=== PATIENT | male | born 1955 | race Caucasian/White ===

== ENCOUNTER → 2018-09-13 10:35 | Outpatient (CLI) | payer MEDICARE, OTHER, SELFPAY ==
--- NOTE | 2018-09-13 | DI.RAD.S_ITS ---
PROCEDURE: XR KNEE RT 3V INDICATIONS: RIGHT KNEE PAIN TECHNIQUE: 3 views of the knee were acquired. COMPARISON: None. FINDINGS: Bones: No fractures or dislocations. No suspicious bony lesions. There is a severe medial compartment degenerative osteoarthritic change with essentially [id number] articulation. Moderate degeneration is seen at the lateral compartment where a probable intra-articular loose body is superimposed. Moderately severe patellofemoral joint osteoarthritis also is seen. Soft tissues: No joint effusion. No suspicious soft tissue calcifications. IMPRESSION: Moderate to severe degenerative knee joint osteoarthritis with a presumed intra-articular loose body superimposed on the lateral compartment single view, and [id number] articulation at the medial compartment is present. Dictated by: Dima Diaz M.D. on 09/13/2018 at 12:40 Approved by: Dima Diaz M.D. on 09/13/2018 at 12:41
== END ==
PROVIDERS: Family Provider Family Medicine; PCP Family Medicine; Visit Provider Family Medicine
DX: M25.561 Pain in right knee (principal); M17.11 Unilateral primary osteoarthritis, right knee
CPT/HCPCS: 73562

== ENCOUNTER → 2018-10-18 08:22 | Outpatient (CLI) | payer MEDICARE, OTHER, SELFPAY ==
--- NOTE | 2018-10-18 | DI.US.S_ITS ---
PROCEDURE: US ABD AORTA ANEURYSM SCREEN INDICATIONS: AAA SCREENING TECHNIQUE: Real time scanning was performed of the aorta and iliac arteries, with image documentation. COMPARISON: [facility], CT, ABDOMEN/PELVIS WITH CONTRAST, 04/16/2016, 1:22. [facility], CT, ABDOMEN/PELVIS WITH CONTRAST, 09/05/2012, 11:20. FINDINGS: Aorta: Proximal aorta is not seen, secondary to overlying bowel gas. Mid-aorta measures 1.8 cm. Distal aortic diameter is 1.7 cm. Iliac arteries: Right common iliac artery measures 1.2 cm. Left common iliac artery measures 1 cm. IMPRESSION: Negative for aneurysm. Dictated by: Tre Taylor M.D. on 10/18/2018 at 8:43 Approved by: Tre Taylor M.D. on 10/18/2018 at 8:44
== END ==
PROVIDERS: PCP Family Medicine; Visit Provider Family Medicine
DX: Z13.6 Encounter for screening for cardiovascular disorders (principal)
CPT/HCPCS: 76706

== ENCOUNTER → 2018-11-27 07:57 | Outpatient (CLI) | payer MEDICARE, OTHER, SELFPAY ==
--- NOTE | 2018-11-27 | DI.MRI.S_ITS ---
PROCEDURE: MR KNEE RT WO CON INDICATIONS: RT KNEE PAIN TECHNIQUE: Noncontrast sagittal PD fast spin echo and T2 fast spin echo with fat saturation, sagittal 3-D FLASH with fat saturation; coronal T1 spin echo and PD fast spin echo with fat saturation, and axial PD fast spin echo with fat saturation through the knee. COMPARISON: None. FINDINGS: Image quality: Excellent. Menisci: Lateral meniscus appears intact. Medial meniscal tear involving the posterior horn and body, as well as the posterior root. There is complete extrusion of the medial meniscal body. Cruciate ligaments: The anterior and posterior cruciate ligaments appear intact. Medial structures: The medial collateral ligament appears intact. Mild semimembranosus insertional tendinopathy. Visualized portions of the pes anserinus tendons appear normal. No abnormal bursal fluid. Lateral structures: Age-indeterminate mild proximal lateral collateral ligament sprain. The long and short heads of the biceps femoris tendon appear intact. The popliteus tendon appears thickened with intrasubstance signal change also age-indeterminate. Iliotibial band appears normal. Anterior structures: Prepatellar and superficial infrapatellar subcutaneous edema/fluid. The quadriceps and patellar tendons appear intact although there is proximal patellar tendinopathy, likely chronic. Patellar alignment is normal. No femoral trochlear dysplasia or ventral trochlear prominence. No edema in the infrapatellar fat pad. Bones and cartilage: No focal marrow contusion or discrete low signal fracture line. Within the medial compartment, full thickness loss of the femoral and tibial articular cartilage, with subchondral marrow edema Within the lateral compartment, intrasubstance signal change of the central weightbearing tibial cartilage and diffuse surface fraying of the femoral and tibial articular cartilage without focal defect Within the patellofemoral compartment, diffuse partial thickness loss of the patellar and femoral trochlear articular cartilage. Joint space: Large joint effusion. No Washington's cyst. A ligamentous ganglion cyst just to the PCL. A low signal 5 mm presumed loose body seen in the anterior intercondylar notch. Heterogeneous signal intensity also in the region of the anterior intercondylar notch, which could be postsurgical or posttraumatic arthrofibrosis. IMPRESSION: Macerated, complex medial meniscal tear involving the posterior root, horn and body with complete extrusion. Severe degenerative joint disease, most pronounced in the medial compartment. Large joint effusion. Mild semimembranosus insertional tendinopathy. Age-indeterminate proximal patellar tendinopathy. Periligamentous ganglion cysts. Heterogeneous focal signal abnormality in the anterior intercondylar notch which could be postsurgical or posttraumatic arthrofibrosis. Adjacent 5 mm loose body. Dictated by: Jose Lennon M.D. on 11/27/2018 at 12:36 Approved by: Jose Lennon M.D. on 11/27/2018 at 12:45
== END ==
PROVIDERS: PCP Family Medicine; Visit Provider Family Medicine
DX: M25.561 Pain in right knee (principal); S83.231A Complex tear of medial meniscus, current injury, right knee, initial encounter; M17.11 Unilateral primary osteoarthritis, right knee; M25.461 Effusion, right knee; M67.461 Ganglion, right knee; M67.961 Unspecified disorder of synovium and tendon, right lower leg
CPT/HCPCS: 73721

== ENCOUNTER → 2018-12-26 09:12 | Outpatient (CLI) | payer MEDICARE, OTHER, SELFPAY ==
[2018-12-26 10:32] LABS: Add Manual Diff / Slide Review NO; Basophils Absolute Auto 0 /uL (0-100); Basophils Percent Auto 0.6 % (0-2); Eosinophils Absolute Auto 100 /uL (0-450); Eosinophils Percent Auto 2.5 % (2-4); Hematocrit 42.6 % (41-53); Hemoglobin 14.6 g/dL (13.5-17.5); Lymphocytes Absolute Auto 1100 /uL (1100-4500); Lymphocytes Percent Auto 20.9 % (25-40); Mean Corpuscular HGB Conc 34.2 % (30-36); Mean Corpuscular Hemoglobin 32.1 PG (26-34); Mean Corpuscular Volume 93.9 fL (80-100); Monocytes Absolute Auto 400 /uL (0-900); Monocytes Percent Auto 7.8 % (3-14); Neutrophils Absolute Auto 3700 /uL (1500-7000); Neutrophils Percent Auto 68.2 % (50-75); Platelet Count 207 X10^3/uL (150-400); Red Blood Cell Count 4.54 X10^6/uL (4.5-5.9); Red Cell Distribution Width 12.7 % (11.6-14.8); White Blood Cell Count 5.5 X10^3/uL (4.5-11.0)
[2018-12-26 10:38] LABS: Carbon Dioxide 29 mmol/L (22-32); Chloride 102 mmol/L (98-107); HEMOLYSIS < 15 (0-50); Potassium 4.9 mmol/L (3.4-5.1); Sodium 140 mmol/L (137-145)
== END ==
PROVIDERS: Family Provider Family Medicine; PCP Family Medicine; Visit Provider Orthopaedic Surgery
DX: Z01.812 Encounter for preprocedural laboratory examination (principal); Z01.818 Encounter for other preprocedural examination
CPT/HCPCS: 36415; 80051; 85025; 93005

== ENCOUNTER 2019-01-31 09:42 | Day surgery (SDC) | payer MEDICARE, OTHER, SELFPAY ==
[2019-01-17 09:36] VITALS: BMI 29.0
[2019-01-31] VITALS (15 sets, daily range): BP systolic 94–154; BP diastolic 51–88; PULSE 57–82; RESP 9–20; TEMP 36.1–37.1; O2SAT 94–99; BMI 28.6
--- NOTE | 2019-01-31 06:00 | DI.RAD.S_ITS ---
PROCEDURE: XR KNEE RT 1TO2V INDICATIONS: POST OPERATIVE RIGHT KNEE TECHNIQUE: 2 view(s) of the knee acquired. COMPARISON: [facility], CR, XR KNEE RT 3V, 09/13/2018, 10:46. [facility], MR, MR KNEE RT WO CON, 11/27/2018, 8:24. FINDINGS: Bones: Patient is status post knee joint arthroplasty. Hardware components are in expected positions. Visualized bony structures are intact. Soft tissues: Overlying postoperative changes are noted. IMPRESSION: Stable postoperative changes. Dictated by: Tiffany Willson M.D. on 01/31/2019 at 13:29 Approved by: Tiffany Willson M.D. on 01/31/2019 at 13:29
--- NOTE | 2019-01-31 09:59 | PM.PREOP ---
Pre-operative Note Interval Note History & Physical reviewed/Exam performed by Physician: Yes Changes to H&P: No
--- NOTE | 2019-01-31 10:00 | PM.OP.1 ---
Operative Date/Time/Diagnoses Date of procedure: 01/31/19 Time of procedure: 12:54 Pre-op diagnosis: Right knee osteoarthritis Post-op diagnosis: same Procedure & Clinicians Procedure: Right total knee arthroplasty Same procedure as scheduled: Yes Indications: The patient presents today for total knee arthroplasty after failure of conservative treatment. The nature of the procedure including the risks and benefits, alternatives, postoperative course and expected outcome were discussed and all questions answered. Consent was obtained. Operative site confirmed and marked. Surgeon: Jayesh Noel Aircraft Magneto Mechanic: Jame Ruelas Anesthesia Type: General, Spinal and Local Operative Notes Findings: Severe osteoarthritis with varus alignment. Closure Type: primary Specimen(s): none sent Prosthetic devices, grafts, tissues, transplants, or devices: Ch and Nephew Flex BCS: 7 femoral component, 6 tibial component, 9 mm BCS polyethylene tray and 38 x 9 mm round patella Applied: implant(s) Estimated Blood Loss (mL): 10 Blood products transfused: none Tourniquet time (min): 57 Procedure in detail: The patient was taken to the operative suite and placed under general and spinal anesthesia. The patient was given prophylactic antibiotics prior to surgery. The patient was also given tranexamic acid, 1 g, just prior to surgery for postoperative hemostasis. The lateral knee was prepped and the joint injected with 20 mL of 1% Lidocaine with epinephrine. The knee was then prepped and draped in usual sterile fashion. The leg was exsanguinated with an Esmarch dressing and the tourniquet raised to 250 torr. A 15 cm anterior incision was made. Next a medial trivector arthrotomy was made. The extensor mechanism was marked to ensure accurate repair. Initial exposing dissection was carried out medially and laterally. The knee was then extended and the patellar thickness was measured and a cut made removing approximately 9 mm of bone. The patella was then sized and drilled. Some excess lateral bone was excised and the patellofemoral ligament released. The knee was then flexed and the intramedullary femoral guide jw placed. The distal femoral cut was made in 6 ? of valgus at the + 0 position. The femoral size was measured and the appropriate cutting block was then placed and the anterior, posterior and chamfer cuts made. The extra medullary tibial alignment jw was then placed along the anatomic axis of the tibia approximating the normal slope. The guide was set to remove approximately 10 mm from the less affected lateral side. The proximal tibial cut was then made with an oscillating saw. All meniscus and bony debris was then removed. Flexion extension gaps were checked. The knee was still tight medially after routine soft tissue releases and osteophyte removal. Further medial release was obtained percutaneously with an 18 gauge needle on the MCL. This helped to correct the balance. The knee was still mildly tighter medially as opposed to laterally in extension. The soft tissues were then injected with a combination of 20 mL of half percent Marcaine with epinephrine and 20 mL of Exparel. The trial components were then placed. The knee went into full extension and flexion beyond 120?. There was good medial- lateral balance throughout motion with just slight increased lateral as opposed to medial laxity. Patellar tracking was excellent. The trial components were removed and the knee was cleansed with Pulsavac irrigation and dried. The final components were cemented in with high viscosity vacuum mixed bone cement with antibiotics. The knee was held in extension and the patellar clamp until the cement had adequately cured. The knee was irrigated and inspected for any further debris. The knee was then irrigated with dilute Betadine solution. The extensor mechanism was closed with 5 interrupted #1 Vicryl sutures in 90 degrees of flexion. The joint was then injected with a combination of 1 g of tranexamic acid and 20 mL of quarter percent Marcaine with epinephrine. The subcutaneous tissue was closed with 2-0 Vicryl. The skin was closed with sunday and surgical adhesive. An Aquacell dressing and Roby wrap were then applied. The patient tolerated the procedure well and was returned to recovery room in good condition. Post-operative Plan for aftercare: [facility] protocol for total knee arthroplasty.
[2019-01-31] MEDS: LACTATED RINGERS 1,000 ML 42 ML IV (10:10)
[2019-01-31] MEDS: PREGABALIN 75 MG CAPSULE PO (10:20)
[2019-01-31] MEDS: ACETAMINOPHEN 325 MG TABLET 975 MG PO ×3 (10:20→21:29)
[2019-01-31] MEDS: CELECOXIB 200 MG CAPSULE PO (10:20)
[2019-01-31] MEDS: CEFAZOLIN 2 GM/100 ML FROZ.PIGGY IV ×2 (11:15→18:34)
--- NOTE | 2019-01-31 11:53 | SUR.OPER ---
Supine on padded OR bed. Pillow under head, arms secured on padded armboards <90 degree abduction. Safety belt across torso. Non-operative leg secured with tape over blanket over lower leg. Operative leg secured in Barber positioner. Foam padded brace at thigh of operative leg.
[2019-01-31] MEDS: TRANEXAMIC ACID 1,000 MG VIAL 1000 MG IV (12:00)
[2019-01-31] MEDS: BUPIVACAINE 0.25% W/ EPI (PF) 20 ML, TRANEXAMIC ACID 1,000 MG, SODIUM CHLORIDE 0.9% 10 ML INJ (12:00)
[2019-01-31] MEDS: BUPIVACAINE 0.25% W/ EPI (PF) 40 ML, BUPIVACAINE LIPOSOME 266 MG, SODIUM CHLORIDE 0.9% ... INJ (12:01)
[2019-01-31] MEDS: SODIUM CHLORIDE IRRIG SOLUTION 250 ML, POVIDONE-IODINE SPONGE STICKS 1 APPLIC IRR (12:01)
--- NOTE | 2019-01-31 13:26 | SUR.PHASEI ---
REPORT CALLED TO LOLA CABRERA ON ACUTE CARE FLOOR. PT IN STABLE CONDITION, VSS. DRSG OBSERVED TO BE C/D/I. PT ALERT AND TALKING TO RN. PT DENIES ANY PAIN/DISCOMFORT OR NAUSEA AT THIS TIME.
--- NOTE | 2019-01-31 13:45 | SUR.PHASEI ---
PT TRANSFERRED TO ACUTE CARE FLOOR IN STABLE CONDITION. PT ALERT AND TALKING TO RN DURING TRANSPORT. BEDSIDE REPORT GIVEN TO LOLA CABRERA UPON ARRIVAL. PT FAMILY AT BEDSIDE UPON ARRIVAL. TRANSFERRED CARE OF PT TO LOLA CABRERA AT THAT TIME.
[2019-01-31] MEDS: OXYCODONE IR 5 MG TABLET 10 MG PO ×3 (14:41→21:28)
[2019-01-31] MEDS: GABAPENTIN 600 MG TABLET PO ×2 (14:42→21:29)
[2019-01-31] MEDS: LACTATED RINGERS 1,000 ML 125 ML IV ×2 (14:42→22:56)
[2019-01-31] MEDS: HYDROMORPHONE 0.5 MG INJ IV (16:24)
--- NOTE | 2019-01-31 19:18 | PC.NURSE ---
PATIENT UP TO BSC WITH ASSIST,SMALL RESULTS,PRUNE JUICE GIVEN
[2019-01-31] MEDS: AMLODIPINE 5 MG TABLET PO (21:29)
[2019-01-31] MEDS: ATORVASTATIN 20 MG TABLET 40 MG PO (21:29)
[2019-01-31] MEDS: NAPROXEN 250 MG TABLET 500 MG PO (21:29)
[2019-01-31] MEDS: ASPIRIN EC 81 MG TABLET PO (21:29)
--- NOTE | 2019-02-01 00:17 | PC.NURSE ---
Set Making Machine Operator Note: 0000: Awake, states he is having 6/10 pain in rt knee. Dilaudid 0.5mg given IV. IV in place in lt forearm, with LR infusing at 125cc/hr. Dressing to rt knee cdi, with eduardo wrap intact over dressing. SCDs on. Fresh ice to rt knee.
[2019-02-01] MEDS: OXYCODONE IR 5 MG TABLET 10 MG PO ×3 (01:12→08:32)
[2019-02-01] MEDS: CEFAZOLIN 2 GM/100 ML FROZ.PIGGY IV (03:10)
[2019-02-01 04:36] VITALS: BP 134/71; PULSE 58; RESP 18; TEMP 36.5; O2SAT 97
[2019-02-01 07:06] LABS: Hematocrit 38.4 % (41-53); Hemoglobin 13.3 g/dL (13.5-17.5)
[2019-02-01 08:00] VITALS: BP 121/65; PULSE 67; RESP 16; TEMP 36.9; O2SAT 98
[2019-02-01] MEDS: ACETAMINOPHEN 325 MG TABLET 975 MG PO (08:36)
[2019-02-01] MEDS: ASPIRIN EC 81 MG TABLET PO (08:36)
--- NOTE | 2019-02-01 09:03 | PM.DS.1 ---
History of Present Illness History of Present Illness Date Patient Seen: 02/01/19 Time Patient Seen: 09:03 Chief complaint: Total Knee Arthroplasty Narrative: Patient's pain is 3/10. No fever chills. No nausea vomiting. Patient wishes to go home today if safe to do so. Patient's is home and available to assist him. Discharge Providers Provider Date of admission: 01/31/19 09:42 Discharge Date: 02/01/19 Primary care physician: Isma Townsend MD Consults: 01/31/19 13:48 Consult to Discharge Planning Routine Comment: Consult to Physical Therapy Evaluate & Treat Comment: Physician Instructions: postop TKA protocol Consult to Respiratory Therapy Evaluate & Treat Comment: Physician Instructions: Evaluate and treat Discharge provider: Jame Ruelas PA-C Summary Hospital Course Discharge Diagnosis: Status post right total knee arthroplasty secondary to severe right knee osteoarthritis Hospital Course: Findings: Severe osteoarthritis with varus alignment. Closure Type: primary Specimen(s): none sent Prosthetic devices, grafts, tissues, transplants, or devices: Ch and Nephew Flex BCS: 7 femoral component, 6 tibial component, 9 mm BCS polyethylene tray and 38 x 9 mm round patella Applied: implant(s) Estimated Blood Loss (mL): 10 Blood products transfused: none Tourniquet time (min): 57 Patient admitted to the hospital for right total knee arthroplasty. Patient consented to the same. Patient taken to the operating room underwent right total knee arthroplasty. Patient back in his room recovering well as in stable condition. Status at Discharge Cognitive/behavioral status at discharge: at baseline, oriented Functional status at discharge: uses cane/walker Overall status at discharge: patient is progressing back to baseline Time Spent with Patient Time spent: Less than 30 minutes Exam Vital Signs (past 8 hours): - 02/01/19 04:36 Temperature 97.7 F Pulse Rate 58 L Respiratory Rate 18 Blood Pressure 134/71 Pulse Oximetry 97 Oxygen Delivery Method Room Air Oxygen Flow Rate 0 Narrative Exam Narrative: Pleasant 63-year-old male resting comfortably in bed in no apparent distress. Right knee dressing is clean, dry and intact. Motor functions intact distally. Sensation is intact distally. Right leg is warm and dry. Objective Labs Result Diagrams: 02/01/19 06:35 Labs: Laboratory Results - last 24 hr 02/01/19 06:35 Hgb 13.3 L Hct 38.4 L Discharge Plan Discharge Plan Patient Disposition: Home Discharge comment: DC after PT today Discharge Med Rec/Prescriptions Prescriptions: New oxycodone 5 mg tablet 5 mg PO Q3H PRN (Reason: pain) Qty: 40 RF: 0 Continued gabapentin 100 MG capsule 600 mg PO TID Qty: 0 RF: 0 atorvastatin 40 mg Tablet 40 mg PO BEDTIME RF: 0 amlodipine 5 mg Tablet 5 mg PO BEDTIME RF: 0 piroxicam 20 mg Capsule 20 mg PO BEDTIME RF: 0 duloxetine 20 mg Capsule,Delayed Release(Dr/Ec) 20 mg PO BEDTIME RF: 0 ferrous gluconate 324 mg (37.5 mg iron) Tablet 324 mg PO BID RF: 0 Discontinued hydrocodone-acetaminophen 5-325 mg Tablet 2 tab PO BID RF: 0 Follow up/Referrals: Jayesh Noel MD [Physician] - (1 wk) Isma Tonwsend MD [Primary Care Provider] - Provider Discharge Instructions Diet: Diet as Tolerated Activity: per swiftpath Cold/Heat Therapy: per swiftpath Other treatments: Aspirin 81 mg b.i.d.. Tylenol 500 mg every 4 hours. Oxycodone as needed for pain Skin/Wound/Dressing Care Report to your healthcare provider any signs of infection, such as:: chills, fever, night sweats, increased pain, unusual drainage and unusual redness Dressing: keep clean and dry Discharge Data Primary Care Provider: Isma Townsend Quality VTE Deep Vein Thrombosis/Pulmonary Embolism Present on Admission: No
--- NOTE | 2019-02-01 10:12 | CM.DANOTE ---
DCP: Case received, EMR reviewed and met with patient. Introduced self and role. Was able to obtain baseline information regarding health and living situation from patient. DCP template/assessment completed with information currently available. Patient is a 63 year old male who admitted yesterday morning to the care of the orthopedic team. PCP: Dr. Townsend. Payer: confirmed: Medicare/[facility]. Patient came to the hospital for a surgical procedure. He had a right total knee arthroplasty. Patient has had history of right knee osteoarthritis. Met with him in his room. Alert and oriented, was sitting up in bed. He is awaiting working with physical therapy. Patient is independent at home. He resides with his spouse, Donna, here in [place]. He stated that he has been dealing with knee problems for about 15 years. He stated, his biggest challenge is using stairs. P: Patient has discharge orders for home today, pending working with physical therapy. April Raya RN/Pulvi Mixer Operator
--- NOTE | 2019-02-01 11:55 | PT.IIE ---
Current Diagnoses Unilateral primary osteoarthritis, right knee (01/31/19) Surgery Performed Operation Date: 01/31/19 11:45 Actual Procedures p Total Knee Arthroplasty(Right) - Jayesh Noel MD Surgical History (Last Updated 01/17/19 @ 10:22 by Sapna Noland, RN) H/O vasectomy (Acute) Hx of abdominal surgery (Acute) Hx of tonsillectomy (Acute) Medical History (Last Updated 01/17/19 @ 10:22 by Sapna Noland RN) Cervical spinal stenosis (Acute) Depression (Acute) HLD (hyperlipidemia) (Acute) HTN (hypertension) (Acute) Osteoarthritis (Acute) SCC (squamous cell carcinoma) (Acute ~10/2018) Small bowel obstruction (Acute ~03/2016) Physical Therapy Inpatient Evaluation/Re-Eval M1 PT/OT-IP Prior Functional Status Start: 02/01/19 08:25 Freq: NEEDED Status: Discharge Protocol: Document 02/01/19 11:39 AW (Rec: 02/01/19 11:55 AW [id number]) Medical Review Prior Functional Status Medical History Reviewed Yes Diet/Fluid Consistency Regular Communication Pt with no communication deficits Mobility and Gait Indpendent to mod independent with all functional mobility prior to surgery. Pt admits to occasional use of SBQC Activities of Daily Living and IADL's Indpendent, including driving Social History Household Members spouse Living Arrangements House Number of Floors (Floors) One Floor Number of Stairs To Enter/Railing? 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 lives with his spouse who is available to assist at home M2 PT-IP Current Condition Start: 02/01/19 08:25 Freq: NEEDED Status: Discharge Protocol: Document 02/01/19 11:39 AW (Rec: 02/01/19 11:55 AW [id number]) Physical Therapy Current Condition Current Condition Evaluation Date 02/01/19 Treatment Diagnosis s/p R TKA Onset Date 01/31/19 Weight Bearing Status Weight Bearing Status Weight Bear as Tolerated M3 PT-IP Subjective Start: 02/01/19 08:25 Freq: NEEDED Status: Discharge Protocol: Document 02/01/19 11:39 AW (Rec: 02/01/19 11:55 AW [id number]) Subjective Physical Therapy Visit Type Type Initial Evaluation Visit Start Time 09:03 Visit Stop Time 09:34 Total Visit Minutes 31 Number of TICKET BROKER Visits 0 Physical Therapy Visit Comments Patient Comments Pt is happy to mobilize with PT Patient Goals Carlos hopes to return home with his 's assistance as soon as possible Therapy Pain Assessment Pain When Pain Assessed During Mobility Pain Present Pain Present Pain Reported Location Bilateral Neck Intensity 4 Scale Used Pain reported as 2/10 at rest, 4/10 with activity Pain Management Techniques Apply Cold,Timing of Activity with Medications M4 PT-IP Mobility and Gait Start: 02/01/19 08:25 Freq: NEEDED Status: Discharge Protocol: Document 02/01/19 11:39 AW (Rec: 02/01/19 11:55 AW [id number]) PT-Bed Mobility Assessment Rolling Type of Rolling Roll to Right Level of Assist Standby Assistance Supine to Sit Supine to Sit Standby Assistance Sit to Supine Sit to Supine Standby Assistance Scooting Scooting to Edge of Bed Standby Assistance PT-Transfer Assessment Sit to and From Stand Sit to and from Stand Standby Assistance Equipment Transfer Assistive Device Gait Belt,Front Wheeled Walker Orthotic/Prosthetic Devices or Brace: No Transfers Transfer Destination Bed,Chair,Toilet Transfer Technique Stand Step Pivot Transfer Ability Level of Assist Standby Assistance Comments Mobility Comments Pt required no more than SBA with all transfers Gait Assessment Gait Gait Assistance Required: Standby Assistance Distance (Feet) 80 Able to Maintain Weight Bearing Status Yes During Gait Assistive Devices Assistive Device Gait Belt,Front Wheeled Walker Orthotic/Prosthetic Devices or Brace: No Gait Deviations General Gait Pattern Antalgic,Decreased Stride Length,Flexed Trunk Factors Limiting Gait Function Factors Limiting Gait Function Decreased Strength,Pain Comments Gait Comments Pt ambulated 80 feet using FWW SBA with reported increase of pain from 2/10 to 4/10, but pt feels the pain is manageable PT-Balance Assessment Sitting Balance and Reactions Static Sitting Balance Ability Normal Dynamic Sitting Balance Ability Normal Standing Balance and Reactions Static Standing Balance Ability Good Dynamic Standing Balance Ability Good M5 PT-IP Objective Assessments Start: 02/01/19 08:25 Freq: NEEDED Status: Discharge Protocol: Document 02/01/19 11:39 AW (Rec: 02/01/19 11:55 AW [id number]) Orientation Orientation/Cognition Level of Alertness Alert Orientation Name,Birthday,Month,Place, Situation Language Function Ability No Deficits Noted Safety Awareness Understands Safety Issues Memory Description No Deficits Noted Gross Range of Motion Upper Extremity ROM Assessment Within Functional Limits Lower Extremity ROM Assessment Right Impaired Strength Upper Extremity Strength Assessment Within Functional Limits Lower Extremity Strength Assessment Right Impaired Coordination Assessment Gross Coordination Gross Coordination WNL Sensation Assessment Sensation Gross Sensation Right LE Impaired Light Touch Impaired Comments Sensation Comments Light touch sensation dull in anterior and posterior compartments of distal RLE. No impairment noted in right proximal leg or right foot. Muscle Tone Muscle Tone WNL Yes M6 PT-IP Treatment Start: 02/01/19 08:25 Freq: NEEDED Status: Discharge Protocol: Document 02/01/19 11:39 AW (Rec: 02/01/19 11:55 AW [id number]) Physical Therapy Treatment Exercises Exercises Ankle Pumps,Quad Sets,Passive Knee Extension Hang Education Education Provided Precautions,Weight Bearing Status,Post-Op Packet,Safety M7 PT-IP Assessment and Plan Start: 02/01/19 08:25 Freq: NEEDED Status: Discharge Protocol: Document 02/01/19 11:39 AW (Rec: 02/01/19 11:55 AW [id number]) PT Summary Assessment and Plan Potential Rehabilitation Potential Excellent Status of Condition at Evaluation Evolving Summary Impairments Pain,ROM,Strength,Gait, Activity Tolerance Assessment Summary Carlos is a 63 yo man seen for PT eval on POD1 following R TKA. PLOF: Pt was independent with all functional mobility, only occasionally requiring use of quad cane for longer distances. Indpendent with all ADL/IADL's including driving. CLOF: Pt required no more than SBA for all bed mobility, transfers, and gait with FWW. PT reviewed plan of care, post-op exercises, weightbearing status, and importance of avoiding prolonged periods of knee in flexion. Advised pt to keep knee flat as much as possible in order to avoid flexion contracture. PT recommendation is for discharge to home with spouse assist as needed and outpatient PT. Goals Bed Mobility Goal Independent Transfer Goal Independent Gait Goal Independent Gait Distance 200 feet Frequency of Treatment Frequency Of Treatment Twice a Day Treatment Plan Physical Therapy Treatment Plan Bed Mobility Training,Transfer Training,Gait Training, Therapeutic Exercise,Balance Retraining,Post Op Education, Discharge Planning,Hot or Cold Pack,Neuromuscular Re-ed, Coordination Retraining,Manual Therapy Recommendations To Nursing Amount of Assist Needed Standby Assistance Discharge Recommendations PT Discharge Recommendations Home with Assistance, Outpatient PT
== END 2019-02-01 11:24 | disposition home or self-care (01) ==
LOC: AC 02-01 09:03 → OR 02-01 15:15
PROVIDERS: PCP Family Medicine; Visit Provider Orthopaedic Surgery
PROC: 0SRC0JZ Replacement of Right Knee Joint with Synthetic Substitute, Open Approach (ICD-10-PCS; CPT 27447; principal; 2019-01-31 11:45)
DX: M17.11 Unilateral primary osteoarthritis, right knee (principal)
CPT/HCPCS: 27447; 36415; 73560; 85014; 85018; 94762; 97110; 97161; C1776; C9290; J0690; J1100; J1170; J2250; J2405; J2704; J3010

== ENCOUNTER → 2020-05-12 11:20 | Outpatient (CLI) | payer MEDICARE, OTHER, SELFPAY ==
[2019-01-31 13:53] VITALS: BMI 28.6
[2020-05-12 12:16] LABS: COVID19 -Nasal RAPID Negative (Negative)
== END ==
PROVIDERS: PCP Family Medicine; Visit Provider Specialist
DX: Z01.812 Encounter for preprocedural laboratory examination (principal); Z20.828 Contact with and (suspected) exposure to other viral communicable diseases
CPT/HCPCS: 87635; C9803

== ENCOUNTER 2020-05-13 08:45 | Day surgery (SDC) | payer MEDICARE, OTHER, SELFPAY ==
[2019-01-31 13:53] VITALS: BMI 28.6
--- NOTE | 2020-05-13 | PATH_ITS ---
[facility] Accession Number: [id number] . 01 Material submitted: . PART A: esophagus, E-G Junction - BX NEAR ULCER AT GE JUNCTION PART B: body - POLYP AT 45CM . 02 Diagnosis: A. GE Junction, Near Ulcer, Biopsy: Columnar mucosa with no diagnostic abnormality. Negative for intestinal metaplasia. Negative for dysplasia and malignancy. . B. Colon, Polyp at 45 cm, Biopsy: Tubular adenoma. MRV 05/19/2020 1435 Local . 02 Electronically signed: . Tika Hedrick MD, Pathologist NPI- [id number] . 01 Gross description: . Part A: BX NEAR ULCER AT GE JUNCTION: Received in formalin are 2 fragment(s) of syed, soft tissue measuring 0.3 x 0.2 x 0.1 cm to 0.1 x 0.1 x 0.1 cm submitted entirely in 1 cassette(s) Part B: POLYP AT 45CM: Received in formalin are 2 fragment(s) of syed, soft tissue measuring 0.4 x 0.3 x 0.1 cm to 0.3 x 0.2 x 0.2 cm submitted entirely in 1 cassette(s) /QBJ 05/14/2020 0814 Local . 02 Microscopic: . An alcian blue stain was performed to evaluate for intestinal metaplasia and is negative. The control stain showed appropriate reactivity. . 02 Pathologist provided ICD-10: D50.9, D12.6 . 02 CPT . 193863, 754705, [id number] Performed at: 01 [facility] [address] [place] [address] [address] [facility], [place], [place] [id number] MD Jayesh Falk MD Phone: [phone] Performed at: 02 [facility] [address] [place] [id number] MD Tika Hedrick MD Phone: [phone]
[2020-05-13 09:13] VITALS: BP 129/80; PULSE 80; RESP 16; TEMP 36.1; O2SAT 95; BMI 29.5
[2020-05-13] MEDS: LACTATED RINGERS 1,000 ML 200 ML IV (09:44)
--- NOTE | 2020-05-13 10:07 | PM.PREOP ---
Pre-operative Note COVID-19 COVID-19 status: Negative Result date/Date tested (Pos, Neg/Pending): 05/12/20 Interval Note History & Physical reviewed/Exam performed by Physician: Yes Changes to H&P: No ASA Class (for procedural sedation): II
[2020-05-13] MEDS: LIDOCAINE 4% SOLN 50 ML 20 ML TOP (10:31)
[2020-05-13] MEDS: fentaNYL 250 MCG/5 ML INJ IV (10:57)
[2020-05-13] MEDS: MIDAZOLAM 5 MG/5 ML VIAL IV (10:57)
--- NOTE | 2020-05-13 11:20 | P.OP.ENDO_ITS ---
Operative Date/Time/Diagnoses Date of procedure: 05/13/20 Time of procedure: 11:20 Pre-op diagnosis: Iron deficiency anemia Post-op diagnosis: same (Ulcer at the GE junction possible source of anemia. Small colon polyps and diverticulosis(not likely sources of anemia)) Procedure & Clinicians Study performed: EGD with cold biopsy. Colonoscopy with cold biopsy. Same procedure as scheduled: Yes Indications: Determine cause of anemia if possible. Surgeon: Chiki Turner Procedure Notes SCOAP/Timeout: Performed Procedure in detail: The patient had topical anesthetic applied to oropharynx. She was placed in left lateral decubitus position and underwent IV sedation directed by the surgeon consisting of fentanyl and Versed. A bite block was inserted and the scope was advanced through it into the esophagus. The eso phagus was unremarkable. GE junction was noted at 37 cm from the incisors.. The stomach insufflated well. There were no lesions seen in the body, antrum or at the incisura. The pyloric channel was widely patent. The duodenum was unremarkable to the 4th part. The scope was brought back into the stomach and retroflexed. The proximal stomach was remarkable for the appearance of a possible prior Joce which was no longer tight and a small ulcer at the GE junction not seen from above. Biopsies were taken adjacent to the small ulcer.. The scope was straightened and brought out through the esophagus again. No other lesions were seen. The scope was removed and the patient tolerated the procedure well. The patient was repositioned and underwent additional IV sedation directed by the surgeon consisting of fentanyl and Versed. Digital exam was remarkable for decreased sphincter tone. The scope was inserted and advanced through the rectum into the sigmoid, descending, transverse, and ascending colon. Occasional diverticulosis was noted in the sigmoid.. The cecum was reached identified by the ileocecal valve and the appendiceal opening. The ileocecal valve was successfully cannulated. The terminal ileum was normal in appearance. The scope was gradually brought out. At 45 cm a small Polyp was found and removed. The scope ultimately was retroflexed in the rectum. The appearance was notable for very small hemorrhoids that had no ulceration.. The scope was removed and the patient tolerated the procedure well. The prep was very good. Scope withdrawal time: 9 minutes(11 total) Sedation minutes: 32 Findings: diverticulosis (Sigmoid.), internal hemorrhoids (Small non ulcerated), polyp (Small polyp at 45 cm from the anal verge.) and other findings (Ulcer GE junction.) Specimen(s): other (GE junction biopsy near ulcer. Colonic Polyp biopsy.) Complications: none Post-procedure Recommendations: Start medication(s) (Omeprazole) and Continue medication(s) (Iron) Plan for aftercare: Repeat EGD in 3 months to confirm healing. Follow up: months (Three) Disposition: PACU
[2020-05-13 11:23] VITALS: BP 122/73; PULSE 72; RESP 14; TEMP 36.5; O2SAT 96
[2020-05-13 11:28] VITALS: BP 112/78; PULSE 76; RESP 14; O2SAT 96
[2020-05-13 11:45] VITALS: BP 117/72; PULSE 70; RESP 14; TEMP 36.7; O2SAT 97
[2020-05-13 12:00] VITALS: BP 113/75; PULSE 60; RESP 17; TEMP 36.1; O2SAT 95
== END 2020-05-13 12:15 | disposition home or self-care (01) ==
PROVIDERS: PCP Family Medicine; Referring Provider Family Medicine; Visit Provider Specialist
PROC: 0DJ08ZZ Inspection of Upper Intestinal Tract, Via Natural or Artificial Opening Endoscopic (ICD-10-PCS; CPT 43235; principal; 2020-05-13 10:00)
PROC: 0DJD8ZZ Inspection of Lower Intestinal Tract, Via Natural or Artificial Opening Endoscopic (ICD-10-PCS; CPT 45378; 2020-05-13 10:00)
DX: K92.1 Melena (principal); D50.9 Iron deficiency anemia, unspecified; I10 Essential (primary) hypertension; E78.5 Hyperlipidemia, unspecified; K57.30 Diverticulosis of large intestine without perforation or abscess without bleeding; K22.10 Ulcer of esophagus without bleeding; K64.8 Other hemorrhoids; D12.6 Benign neoplasm of colon, unspecified
CPT/HCPCS: 45380; 43239; 99152; 99153; J2250; J3010

== ENCOUNTER 2020-07-07 10:53 | Emergency (ER) | payer MEDICARE, OTHER, SELFPAY ==
[2019-01-31 13:53] VITALS: BMI 28.6
[2020-07-07 11:04] VITALS: BP 130/73; PULSE 69; RESP 14; TEMP 36.5; O2SAT 98
--- NOTE | 2020-07-07 11:25 | ED.GENADULT ---
HPI - General Adult General Chief complaint: Back Pain/Injury Stated complaint: severe lower back pain/dizzy x2 weeks Time Seen by Provider: 07/07/20 10:58 Source: patient Mode of arrival: Wheelchair Limitations: no limitations History of Present Illness HPI narrative: Patient is a 64-year-old male here for evaluation of lower back pain radiating down his left leg to the front of his left leg. He has had lower back pain for the past several weeks but worsened over the past 24 hours. He states that sitting he is somewhat pain controlled however when he changes positions specially with walking hurts. No fevers. No change in any urinary status. No diarrhea. With his chiropractor today who told him to come to the emergency department for an MRI. Related Data Home Medications Medication Instructions Recorded Confirmed gabapentin 600 mg PO TID #0 04/16/16 05/13/20 amlodipine 5 mg PO BEDTIME 01/17/19 05/13/20 atorvastatin 40 mg PO BEDTIME 01/17/19 05/13/20 duloxetine 20 mg PO BEDTIME 01/17/19 05/13/20 ferrous gluconate 324 mg PO BID 01/17/19 05/13/20 piroxicam 20 mg PO BEDTIME 01/17/19 05/13/20 hydrocodone-acetaminophen 1 - 2 tab PO Q6H PRN 05/13/20 05/13/20 methocarbamol 500 - 1,000 mg PO QID PRN 05/13/20 05/13/20 Previous Rx's Medication Instructions Recorded omeprazole 20 mg PO DAILY #30 cap 05/13/20 prednisone 20 mg PO DAILY 3 Days #3 tab 07/07/20 Allergies Allergy/AdvReac Type Severity Reaction Status Date / Time morphine AdvReac Severe Cramping Verified 07/07/20 11:07 Review of Systems Constitutional Constitutional: Denies fever(s) and Denies headache(s) ENT Ears, Nose, Mouth, and Throat: Denies headache(s) Cardiovascular Cardiovascular: Denies chest pain and Denies dyspnea Respiratory Respiratory: Denies dyspnea Gastrointestinal Gastrointestinal: Denies abdominal pain, Denies change in bowel habits, Denies nausea and Denies vomiting Genitourinary Genitourinary: Denies urinary incontinence and Denies urinary urgency Genitourinary: Denies urinary incontinence and Denies urinary urgency Musculoskeletal Musculoskeletal: Denies arthralgias, Reports back pain and Denies myalgias Integumentary/Breasts Skin/Breast: Denies rash Neurologic Neurologic: Denies behavioral changes, Denies headache(s) and Reports paresthesias (Left anterior thigh) Psychiatric Psychiatric: Denies behavioral changes Hematologic/Lymphatic On Anticoagulants: No Allergic/Immunologic Allergic/Immunologic: Denies urticaria Patient History Medical History Cervical spinal stenosis Depression HLD (hyperlipidemia) HTN (hypertension) Osteoarthritis SCC (squamous cell carcinoma) (~10/2018) Small bowel obstruction (~03/2016) Surgical History H/O vasectomy Hx of abdominal surgery Hx of tonsillectomy Social History marital status: household members: spouse occupational status: previously employed Smoking Status: Former smoker alcohol intake: current substance use type: does not use Smoking Status: Former smoker alcohol intake frequency: a few times a week Substance Use Type: does not use Exam Initial Vital Signs Initial Vital Signs: Vital Signs Temperature 97.7 F 07/07/20 11:04 Pulse Rate 69 07/07/20 11:04 Respiratory Rate 14 07/07/20 11:04 Blood Pressure 130/73 07/07/20 11:04 Pulse Oximetry 98 07/07/20 11:04 Const General: cooperative Limitations: mental status not altered HENMT Head: normal to inspection and normocephalic Resp Effort & Inspection: normal respiratory effort Cardio Rate: regular rate Back/Spine/Pelvis Thoracic/Lumbar Spine: paraspinal tenderness and No lumbar spinal tenderness Neuro Other: Tingling/numbness left anterior thigh Extrem General: capillary refill normal Psych Appearance: well kempt Course Orders Ordered: Discontinued Medications Ketorolac Tromethamine (Ketorolac 60 Mg/2 Ml Vial) 30 mg IM NOW ONE Stop: 07/07/20 11:26 Last Admin: 07/07/20 11:45 Dose: 30 mg Documented by: FABIAN Vital Signs Vital signs: Vital Signs - 8 hr 07/07/20 11:04 07/07/20 12:18 Temperature 97.7 F Pulse Rate 69 62 Respiratory Rate 14 18 Blood Pressure 130/73 116/72 Pulse Oximetry 98 96 Medical Decision Making MDM Narrative Medical decision making narrative: Low suspicion for cauda equina based on his physical today. He denies any trauma. I feel no x-rays or CT scans are needed. Informed the patient that unfortunately he would need to talk with his primary doctor about obtaining an MRI. He states that he has medication at home that he can take to include muscle relaxers and pain medicines. He was given a shot of Toradol here which she did state helps is symptoms somewhat. Was sent home with 3 days of prednisone. He is given return precautions. He expressed understanding and agreement. Discharge Plan Departure Patient Disposition: Home Clinical Impression: Lumbar back pain with radiculopathy affecting left lower extremity Instructions: DI for Low Back Pain Activity Restrictions/Additional Instructions: Recommend that you further workup to include indication for physical therapy or MRI. Continue all other medications as directed. A prescription for a short course of steroids which hopefully will help your symptoms was electronically transmitted to the pharmacy of your choice. Return to the emergency department for any new or worsening symptoms Prescriptions: New prednisone 20 mg tablet 20 mg PO DAILY 3 Days Qty: 3 RF: 0 No Action gabapentin 100 MG capsule 600 mg PO TID Qty: 0 RF: 0 methocarbamol 500 MG tablet 500 - 1,000 mg PO QID PRN (Reason: Muscle Spasm) RF: 0 hydrocodone-acetaminophen 5-325 mg tablet 1 - 2 tab PO Q6H PRN (Reason: Pain (Scale Score 4-6)) RF: 0 omeprazole 20 mg capsule,delayed release(DR/EC) 20 mg PO DAILY Qty: 30 RF: 4 atorvastatin 40 mg Tablet 40 mg PO BEDTIME RF: 0 amlodipine 5 mg Tablet 5 mg PO BEDTIME RF: 0 piroxicam 20 mg Capsule 20 mg PO BEDTIME RF: 0 duloxetine 20 mg Capsule,Delayed Release(Dr/Ec) 20 mg PO BEDTIME RF: 0 ferrous gluconate 324 mg (37.5 mg iron) Tablet 324 mg PO BID RF: 0 Referrals: Isma Townsend MD [Primary Care Provider] -
[2020-07-07] MEDS: KETOROLAC 60 MG/2 ML VIAL 30 MG IM (11:45)
[2020-07-07 12:18] VITALS: BP 116/72; PULSE 62; RESP 18; O2SAT 96
== END 2020-07-07 12:35 | disposition home or self-care (01) ==
PROVIDERS: Emergency Provider Emergency Medicine; PCP Family Medicine
DX: M54.16 Radiculopathy, lumbar region (principal); M79.605 Pain in left leg; E78.5 Hyperlipidemia, unspecified; I10 Essential (primary) hypertension
CPT/HCPCS: 96372; 99281; 99283; J1885

== ENCOUNTER → 2020-07-09 08:07 | Outpatient (CLI) | payer MEDICARE, OTHER, SELFPAY ==
[2019-01-31 13:53] VITALS: BMI 28.6
--- NOTE | 2020-07-09 | DI.MRI.S_ITS ---
PROCEDURE: MR LUMBAR SPINE WO CON INDICATIONS: Lumbago with sciatica, left side TECHNIQUE: Noncontrast sagittal T1 spin echo and T2 fast echo, sagittal STIR, axial T1 and T2 fast spin echo through the lumbar spine. In cases with scoliosis, additional coronal T2 fast spin echo may be performed. COMPARISON: None. FINDINGS: Image quality: Excellent. Alignment and Curvature: There is grade II L5-S1 spondylolisthesis secondary to bilateral L5 pars interarticularis defects. Bones: Vestigial 12th ribs noted. Reactive endplate changes noted adjacent to the L5-S1 disc. No acute vertebral body compression fractures. Spinal Cord: Conus medullaris terminates at the L1 level. Visualized cord demonstrates normal signal and size. Paraspinous Soft Tissues: No paravertebral masses. T12-L1: Loss of disc signal and height. Moderate, diffuse disc bulge. Mild bilateral facet hypertrophy. Mild narrowing of the central canal. Mild bilateral neural foraminal narrowing. No neural compression. L1-L2: Loss of disc signal. Large central/left central disc extrusion. Mild bilateral facet hypertrophy. Severe narrowing of the central canal with compression of the nerve roots of the cauda equina. Moderate right and mild left neural foraminal narrowing. L2-L3: Loss of disc signal and height. Moderate, diffuse disc bulge. Mild bilateral facet hypertrophy. Moderate narrowing of the central canal. Mild bilateral neural foraminal narrowing. No neural compression. L3-L4: Loss of disc signal and height. Moderate, diffuse disc bulge. Mild narrowing of the central canal. Moderate bilateral neural foraminal narrowing. No neural compression. L4-L5: Loss of disc signal and height. Moderate, diffuse disc bulge. Mild bilateral facet hypertrophy. Mild narrowing of the central canal. Moderate right and moderate to severe left neural foraminal narrowing with slight compression of the exiting left L4 nerve root. L5-S1: Loss of disc signal and height. Mild, diffuse disc bulge. Mild bilateral facet hypertrophy. No central stenosis. Severe bilateral neural foraminal narrowing with compression of the exiting L5 nerve roots. IMPRESSION: 1. Grade II L5-S1 isthmic spondylolisthesis. 2. Multilevel degenerative disc disease. 3. Multilevel facet arthropathy. 4. Large L1-L2 disc extrusion. Extruded disc material causes severe central canal stenosis and compression of the traversing nerve roots of the cauda equina. Five. Severe bilateral L5-S1 neural foraminal narrowing with compression of the exiting bilateral L5 nerve roots. Moderate to severe left L4-L5 neural foraminal narrowing with slight compression of the exiting left L4 nerve root. Dictated by: Courtney Skinner MD, PhD on 07/09/2020 at 9:40 Approved by: Courtney Skinner MD, PhD on 07/09/2020 at 9:46
== END ==
PROVIDERS: PCP Family Medicine; Referring Provider Family Medicine; Visit Provider Family Medicine
DX: M43.17 Spondylolisthesis, lumbosacral region (principal); M51.16 Intervertebral disc disorders with radiculopathy, lumbar region; M51.17 Intervertebral disc disorders with radiculopathy, lumbosacral region; M47.26 Other spondylosis with radiculopathy, lumbar region; M47.27 Other spondylosis with radiculopathy, lumbosacral region; M48.061 Spinal stenosis, lumbar region without neurogenic claudication; M48.07 Spinal stenosis, lumbosacral region
CPT/HCPCS: 72148

== ENCOUNTER → 2020-09-04 09:23 | Outpatient (CLI) | payer MEDICARE, OTHER, SELFPAY ==
[2019-01-31 13:53] VITALS: BMI 28.6
[2020-09-04 10:32] LABS: COVID19 -Nasal RAPID Negative (Negative)
== END ==
PROVIDERS: Family Provider Family Medicine; PCP Family Medicine; Visit Provider Specialist
DX: Z20.822 Contact with and (suspected) exposure to COVID-19 (principal)
CPT/HCPCS: 87635

== ENCOUNTER 2020-09-05 08:56 | Day surgery (SDC) | payer MEDICARE, OTHER, SELFPAY ==
[2019-01-31 13:53] VITALS: BMI 28.6
[2020-09-05] VITALS (7 sets, daily range): BP systolic 104–136; BP diastolic 72–79; PULSE 68–271; RESP 7–16; TEMP 36.4–36.6; O2SAT 89–99; BMI 29.5
[2020-09-05] MEDS: LACTATED RINGERS 1,000 ML 200 ML IV (09:29)
--- NOTE | 2020-09-05 09:55 | PM.HP.1 ---
History of Present Illness History of Present Illness Date Patient Seen: 09/05/20 Time Patient Seen: 09:51 Chief complaint: SDC Narrative: Patient is a gentleman here for repeat EGD to confirm healing of a S ulcer near his GE junction. Patient History Medical History Anemia Cervical spinal stenosis Depression Diverticula of colon Enlarged prostate HLD (hyperlipidemia) HTN (hypertension) Osteoarthritis SCC (squamous cell carcinoma) (~10/2018) Small bowel obstruction (~03/2016) Surgical History H/O vasectomy Hx of abdominal surgery Hx of tonsillectomy Family & Social History Social History: household members spouse Tobacco & Substance use: Smoking Status Former smoker alcohol intake current alcohol intake frequency a few times a week Substance Use Type does not use Meds Home Medications and Allergies Home Medications Medication Instructions Recorded Confirmed Type gabapentin 600 mg PO TID #0 04/16/16 09/05/20 History amlodipine 5 mg PO BEDTIME 01/17/19 09/05/20 History atorvastatin 40 mg PO BEDTIME 01/17/19 09/05/20 History duloxetine 30 mg PO BEDTIME 01/17/19 09/05/20 History ferrous gluconate 1 mg PO BID 01/17/19 09/05/20 History hydrocodone-acetaminophen 1 - 2 tab PO Q6H PRN 05/13/20 09/05/20 History methocarbamol 1,000 mg PO QID PRN #0 05/13/20 09/05/20 History omeprazole 20 mg PO DAILY #30 cap 05/13/20 09/05/20 Rx Allergies Allergy/AdvReac Type Severity Reaction Status Date / Time morphine AdvReac Severe Cramping Verified 09/05/20 09:17 Review of Systems Review of Systems Narrative: Has had no fever reflux symptoms since starting omeprazole. Feels very good. ROS: Yes All systems reviewed with the patient and are negative except as otherwise documented Exam Vital Signs (past 8 hours): - 09/05/20 09:30 Temperature 97.7 F Pulse Rate 271 H Respiratory Rate 14 Blood Pressure 122/79 Pulse Oximetry 99 Oxygen Delivery Method Room Air Narrative Exam Narrative: Pleasant cooperative patient no apparent distress. Lungs are clear to auscultation. No rales or rhonchi. Heart regular rate and rhythm no murmur gallop. Abdomen is soft nontender without mass. No obvious hernias. Patient is alert and oriented x3. Assessment & Plan Assessment & Plan narrative: Patient for repeat EGD. I have discussed procedure. Risks of bleeding perforation discussed he appears to understand wishes to proceed.
--- NOTE | 2020-09-05 09:56 | PM.PREOP ---
Pre-operative Note COVID-19 COVID-19 status: Negative Result date/Date tested (Pos, Neg/Pending): 09/04/20 Interval Note History & Physical reviewed/Exam performed by Physician: Yes Changes to H&P: No ASA Class (for procedural sedation): II
[2020-09-05] MEDS: LIDOCAINE 4% SOLN 50 ML 20 ML TOP (10:00)
[2020-09-05] MEDS: MIDAZOLAM 5 MG/5 ML VIAL IV (10:02)
[2020-09-05] MEDS: fentaNYL 250 MCG/5 ML INJ IV (10:02)
--- NOTE | 2020-09-05 10:15 | PM.OP.ENDO ---
Operative Date/Time/Diagnoses Date of procedure: 09/05/20 Time of procedure: 10:15 Pre-op diagnosis: History of GE junction ulcer Post-op diagnosis: same (Ulcer has healed) Procedure & Clinicians Study performed: EGD Same procedure as scheduled: Yes Indications: Determine if ulcer at the GE junction has healed Surgeon: Chiki Turner Procedure Notes SCOAP/Timeout: Perform Procedure in detail: The patient had topical anesthetic applied to oropharynx. She was placed in left lateral decubitus position and underwent IV sedation directed by the surgeon consisting of fentanyl and Versed. A bite block was inserted and the scope was advanced through it into the esophagus. The esophagus was unremarkable. GE junction was noted at 36 cm from the incisors.. The stomach insufflated well. There were no lesions seen in the body, antrum or at the incisura. The pyloric channel was patent. The duodenum was unremarkable to the 4th part. The scope was brought back into the stomach and retroflexed. The proximal stomach had the appearance of a prior Joce fundoplication that was somewhat loose. There was no obvious hiatal hernia. However, it is possible he has a very large recurrence. I have no imaging to determine if that is the case. The patient said he has been told he has a hiatal hernia but it was not apparent on this study. That may be because the wrap is intact and the stomach has shifted up into the chest. Or it may be that his hiatal hernia repair is also intact. It was very difficult to tell.. The scope was straightened and brought out through the esophagus again. No lesions were seen. The scope was removed and the patient tolerated the procedure well. Scope withdrawal time: Not applicable Sedation minutes: 6 Findings: other findings (Evidence of a prior Joce fundoplication) Specimen(s): none sent Complications: none Impression: Ulcer is healed Post-procedure Recommendations: Stop medication(s) (Might be able to stop his omeprazole.) Follow up: as needed Disposition: PACU
--- NOTE | 2020-09-05 10:36 | SUR.PHASEI ---
stable pacu stay, to OPD, abdomen large, pt stated it is his normal abdomen.
== END 2020-09-05 10:55 | disposition home or self-care (01) ==
PROVIDERS: Family Provider Family Medicine; PCP Family Medicine; Referring Provider Family Medicine; Visit Provider Specialist
PROC: 0DJ08ZZ Inspection of Upper Intestinal Tract, Via Natural or Artificial Opening Endoscopic (ICD-10-PCS; CPT 43235; principal; 2020-09-05 10:00)
DX: Z09 Encounter for follow-up examination after completed treatment for conditions other than malignant neoplasm (principal); Z87.19 Personal history of other diseases of the digestive system
CPT/HCPCS: 43235; J2250; J3010

== ENCOUNTER 2020-10-02 09:45 | Outpatient (RCR) | payer MEDICARE, OTHER, SELFPAY ==
[2019-01-31 13:53] VITALS: BMI 28.6
--- NOTE | 2020-08-18 16:44 | PT.OIE ---
Current Diagnoses Stiffness of right hip, not elsewhere classified (08/18/20) Radiculopathy, lumbar region (08/18/20) Muscle weakness (generalized) (08/18/20) Past Medical History (Last Reviewed 07/07/20 @ 12:42 by Gerber Villatroo DO) Cervical spinal stenosis Depression HLD (hyperlipidemia) HTN (hypertension) Osteoarthritis SCC (squamous cell carcinoma) (~10/2018) Small bowel obstruction (~03/2016) Past Surgical History (Last Reviewed 05/12/20 @ 18:03 by Chiki Turner MD) H/O vasectomy Hx of abdominal surgery Hx of tonsillectomy Visit Care Team Role Provider Type Isma Townsend MD Family Provider Physician Primary Care Provider Specialty: Family Practice Address: [address] [place] [address], [id number] Email: [email or web address] John Saucedo DO Attending Provider Non-Staff Referring Provider Specialty: Neurosurgery Address: [address] [place] [address], [id number] Email: Physical Therapy Initial Evaluation PT-OP-A Visit Information Start: 08/15/20 18:47 Freq: Status: Active Protocol: Document 08/18/20 12:48 LRN (Rec: 08/18/20 17:00 LRN [id number]) Out-Patient Physical Therapy Visit Information Visit Information Visit Type Initial Evaluation Visit Start Time 12:48 Visit Stop Time 13:42 Total Visit Minutes 54 Visit Number 1 Evaluation Information Evaluation Date 08/18/20 Precautions Precautions Pt reported abdominal MESH surgery x 3 with no rectus abdominus muscle present. 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 PT-OP-B Current Condition Start: 08/15/20 18:47 Freq: Status: Active Protocol: Document 08/18/20 12:48 LRN (Rec: 08/18/20 17:00 LRN [id number]) Current Condition History of Current Condition Onset Date ~07/07/20 Current Complaints Low back pain and down legs with walking. Buttock pain at night. History of Current Condition Back and low back pain for years and something set off the blown L1 disc. Told spinal column fluid may leak. States his back surgery was to put a tube in his back and clean out spinal column on , and he is now almost healed. States he was in wheelchair for 10 days due to blown L1 disc and lost use of legs. States he is now walking 1/2 mile for exercise with muscle pain in his back after walking. He is currently restricted in lifting, squatting: no more than 10# (gal of milk) for another 2 weeks. Ready to get back exercising on his eliptical. Has been off hydrocodone and tylenol for 4 days, taking Gabapentin for neck pain. PMH: R TKA - 2019, Abdominal surgery x 4 (last year ~1998, ~2001, ~2002, ~2003), controlled HBP. Prior Treatments and Tests Neck rehabilitation several years ago. X-ray (07/09/20): Grade II L5-S1 isthmic spondylolisthesis; multilevel DDD (T12 through S1 discs of moderate disc bulge except L5- S1 mild disc bulge); multilevel facte arthropathy; L1-L2 disc extrusion causing severe central canal stenosis and compression of the traversing nerve roots of the cauda equina; and Severe bilateral L5-S1 neural foraminal narrowing with compression of the exiting bilateral L5 nerve roots, Moderate to severe left L4-L5 neural foraminal narrowing with slight compression of the exiting left L4 nerve root. Future Testing and Treatments Planned Next surgeon MD visit is in 2 weeks. Will also see Dr. Townsend for surgery f/u and medications review (Gabapentin). Developmental History Developmental History Hx of neck pain that he just deals with. Pt reports Hernia abdominal repair with 2 mesh surgeries that failed. Last surgery placed a mesh across his abdomen horizontally. Can't do sit ups, but can tense abdomen. 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 Has medicine ball and wants to be able to stretch out. Takes Tylenol to sleep through the night. Functional Limitations- Mobility/Gait Walking 1/2 mile daily. Functional Limitations- Recreation/ See below Hobbies Functional Limitations- Other Restricted from activities for 6 wks post op on 07/21/20 (in 2 more weeks, 09/02/20). 10# lifting restriction, Restricted from squatting. Personal Factors Other Personal Factors That May Effect Has cervical stenosis with Therapy/Recovery occasional numbness in both hands, worse on R side. PT-OP-C Subjective Start: 08/15/20 18:47 Freq: Status: Active Protocol: Document 08/18/20 12:48 LRN (Rec: 08/18/20 17:00 LRN [id number]) Patient Questionnaires Oswestry Low Back Index Oswestry Score 12 Oswestry Impairment 1 to 19% Impaired (Score 1-19) OP-PT Pain Assessment Pain Assessment Grid Paper Pain Assessment Grid Completed Yes Location Low Back Pain Location Details Low back and posterior legs Intensity 3 Scale Used Numeric (0 - 10) Description Aching Frequency Intermittent Pain Aggravating Factors Activity,Walking Pain Alleviating Factors Cold Other Pain Alleviating Factors Sitting in recliner, ices a couple times a day PT-OP-G Mobility & Gait Start: 08/15/20 18:47 Freq: Status: Active Protocol: Document 08/18/20 12:48 LRN (Rec: 08/18/20 17:00 LRN [id number]) OP Mobility Evaluation Bed Mobility Rolling Independent with no TA tightening evident Supine to and from Sit Log roll technique with no TA tightening evident OP Gait Assessment Gait Gait Assistance Required: Independent Able to Maintain Weight Bearing Status Yes During Gait Assistive Devices Assistive Device None Gait Deviations General Gait Pattern Lateral Trunk Lean,Wide Based Gait PT-OP-H Neuro Start: 08/15/20 18:47 Freq: Status: Active Protocol: Document 08/18/20 12:48 LRN (Rec: 08/18/20 17:00 LRN [id number]) Sensation Evaluation Gross Sensation Sensation Description Hyperesthesia PT-OP-J Posture/Palpation/Skin Start: 08/15/20 18:47 Freq: Status: Active Protocol: Document 08/18/20 12:48 LRN (Rec: 08/18/20 17:00 LRN [id number]) Posture Evaluation Position Standing Head/C-Spine Posture Forward Head T-Spine Posture Flattened L-Spine Posture Flattened Shoulder Posture (L) Elevated Weight Distribution Decreased Wt.Bear on (R) Comments Posture Comments Extremely wide stance. PT-OP-K Range of Motion Start: 08/15/20 18:47 Freq: Status: Active Protocol: Document 08/18/20 12:48 LRN (Rec: 08/18/20 17:00 LRN [id number]) Lumbar Spine Range of Motion Lumbar Spine Active Degrees Testing Position Standing Flexion 65 Extension 15 Lateral Flexion Left 13 Lateral Flexion Right 10 ROM Limitations Soft Tissue Tightness,Pain Comments Rotation ~ 10 deg's bilaterally PT-OP-M Strength Start: 08/15/20 18:47 Freq: Status: Active Protocol: Document 08/18/20 12:48 LRN (Rec: 08/18/20 17:00 LRN [id number]) Trunk Strength Trunk Manual Muscle Testing Testing Position Sitting Flexion 2 Poor Lateral Flexion Left 3+ Fair+ Lateral Flexion Right 3+ Fair+ Core Stabilization Deferred resisted MMT due to recent surgery. Pt strength assessed per functional mobility. Pt was able to maintain core stability with MMT of hip flexors in supine. Hip Strength Hip Manual Muscle Testing Right Flexion (L2) 5 Normal Abduction 5 Normal Adduction 2+ Poor+ Left Flexion (L2) 5 Normal Abduction 5 Normal Adduction 2+ Poor+ PT-OP-Q Treatments Start: 08/15/20 18:47 Freq: Status: Active Protocol: Document 08/18/20 12:48 LRN (Rec: 08/18/20 17:00 LRN [id number]) Therapeutic Exercises Supine Exercises TA tightening Supine Exercise Name TA tightening Reps/Minutes 3' Comments No TA tightening of Lower abdomen due to MESH, inferior to ribs is visible. Self-Care/Home Management Treatment Education Patient Education Body Mechanics,Home Exercise Program Other Education Discussed results of evaluation and plan of care. Discussed at length his goals, pt is agreeable to accepting less strenous goals, but would like to still be able to do all things mentioned on his goal list. Educated pt in transfers with TA bracing/tightening properly . Activities Self-Care/Home Management Activities I/S pt in HEP: TA tightening. PT-OP-T Assessment and Plan Start: 08/15/20 18:47 Freq: Status: Active Protocol: Document 08/18/20 12:48 LRN (Rec: 08/18/20 17:00 LRN [id number]) Physical Therapy Assessment Rehab Potential Rehabilitation Potential Excellent Evaluation Complexity Number of Personal Factors/Comorbidities 1-2 Number of Body Systems Impaired 4 or More Clinical Presentation at Evaluation Evolving Impairments Impairments Activity Tolerance,Functional Activities,Pain,ROM,Strength, Transfers Goals Four Impairment Pt is under UE lifting restrictions Short Term Goal (STG) Pt will be able to perform active UE movements to simulate motions of cutting of wood and working on a boat. 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 LTG Duration 11/16/20 Three Impairment Decreased tolerance to exercise. Short Term Goal (STG) Pt will be able to perform a TA contraction and hold it during transfers and functional activities. 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 LTG Duration 11/16/20 Two Impairment Poor abdominal/core stabilization Short Term Goal (STG) Pt will be able to demonstrate proper body mechanics for functional activities. 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 LTG Duration 11/16/20 One Impairment Pt lacks appropriate self care HEP Short Term Goal (STG) Pt will be independent with a self care HEP of ROM exercises . STG Duration 10/03/20 Detention Goal (LTG) Pt will be independent with a self care HEP of continued strengthening exercises. LTG Duration 11/16/20 Assessment Summary Assessment Pt is a 64 year old male who reports being 4 weeks post operative surgical intervention s/p L1-L2 disc herniation with loss of use of LE's. Medical records of surgery is unavailable. PMH indicates pt has multilevel DDD, spondylolisthesis at L5- S1 and compression of bilateral exiting L5 nerve roots and slight compression of exiting L L4 nerve root. According to the pt he has been inactive, trying to recover, but has been walking and now is able to walk 1/2 mile with residual back pain post activity. He primarily complains of back pain with activity and intermittent buttock/posterior thigh pain. The pt's goals post rehabilitation are quite significant, in that he would like to return to prior level of function/activity, that may have been a factor in his original injury. The pt does appear to understand he may have limitations going forward , but would still like to be able to regain is prior function. The pt has very poor core stability in his anterior trunk, but does show ability to contract his transverse abdominal muscle in only his upper trunk, underneath his ribs. He was not able to demonstrate a rectus abdominus muscle contraction; therefore presenting with very poor coor stability anteriorly. The pt will most likely be hindered by his poor core stability, making return to prior function a slow process since the demand on his posterior trunk will be greater. The pt will benefit from skilled physical therapy to progress the pt onto a self care program of core stability, trunk mobility, LE ROM/ strengthening and when appropriate UE progressive strengthening to tolerance. Education in proper back care and body mechanics training will also be needed. Physical Therapy Plan Frequency and Duration Frequency of Treatment 2x/Week Plan of Care Start Date 08/18/20 Plan of Care End Date 11/16/20 Therapeutic Interventions Therapeutic Interventions Home Exercise Program,Joint Mobilizations,Manual Therapy, Neuromuscular Re-education, Patient/Caregiver Education, Self-Care/Home Management,Soft Tissue Mobilization,Taping, Therapeutic Activities, Therapeutic Exercises Modalities Cold Pack/Ice Massage,Electric Stimulation,Hot Packs, Traction- Mechanical, Ultrasound Next Visit Focus/Plan Next Note Type Treatment Note Next Visit Plan Assess hip mobility and strength and start HEP for strengthening and ROM exercises as appropriate. Assess for proper transfers with TA tightening during activities. Gait assessment and training. Core stabilization exercises as pt is able to tolerate with caution of MESH in abdomen. When lift precautions lifted initiate UE strengthening and body mechanics training. Start endurance ex of TM with focus on core stabilization, and hip/strengthening including functional movements such as squats. Maximize lower abdominal strengthening.
--- NOTE | 2020-08-21 11:06 | PT.OTN ---
Current Diagnoses Stiffness of right hip, not elsewhere classified (08/21/20) Radiculopathy, lumbar region (08/21/20) Muscle weakness (generalized) (08/21/20) Physical Therapy Treatment Note PT-OP-A Visit Information Start: 08/15/20 18:47 Freq: Status: Active Protocol: Document 08/21/20 09:45 LRN (Rec: 08/21/20 11:06 LRN [id number]) Out-Patient Physical Therapy Visit Information Visit Information Visit Type Treatment Note Visit Start Time 09:45 Visit Stop Time 10:27 Total Visit Minutes 42 Visit Number 2 Evaluation Information Evaluation Date 08/18/20 Precautions Precautions Pt reported abdominal MESH surgery x 3 with no rectus abdominus muscle present. 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 PT-OP-B Current Condition Start: 08/15/20 18:47 Freq: Status: Active Protocol: Document 08/18/20 12:48 LRN (Rec: 08/18/20 17:00 LRN [id number]) Current Condition History of Current Condition Onset Date ~07/07/20 Current Complaints Low back pain and down legs with walking. Buttock pain at night. History of Current Condition Back and low back pain for years and something set off the blown L1 disc. Told spinal column fluid may leak. States his back surgery was to put a tube in his back and clean out spinal column on , and he is now almost healed. States he was in wheelchair for 10 days due to blown L1 disc and lost use of legs. States he is now walking 1/2 mile for exercise with muscle pain in his back after walking. He is currently restricted in lifting, squatting: no more than 10# (gal of milk) for another 2 weeks. Ready to get back exercising on his eliptical. Has been off hydrocodone and tylenol for 4 days, taking Gabapentin for neck pain. PMH: R TKA - 2019, Abdominal surgery x 4 (last year ~1998, ~2001, ~2002, ~2003), controlled HBP. Prior Treatments and Tests Neck rehabilitation several years ago. X-ray (07/09/20): Grade II L5-S1 isthmic spondylolisthesis; multilevel DDD (T12 through S1 discs of moderate disc bulge except L5- S1 mild disc bulge); multilevel facte arthropathy; L1-L2 disc extrusion causing severe central canal stenosis and compression of the traversing nerve roots of the cauda equina; and Severe bilateral L5-S1 neural foraminal narrowing with compression of the exiting bilateral L5 nerve roots, Moderate to severe left L4-L5 neural foraminal narrowing with slight compression of the exiting left L4 nerve root. Future Testing and Treatments Planned Next surgeon MD visit is in 2 weeks. Will also see Dr. Townsend for surgery f/u and medications review (Gabapentin). Developmental History Developmental History Hx of neck pain that he just deals with. Pt reports Hernia abdominal repair with 2 mesh surgeries that failed. Last surgery placed a mesh across his abdomen horizontally. Can't do sit ups, but can tense abdomen. 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 Has medicine ball and wants to be able to stretch out. Takes Tylenol to sleep through the night. Functional Limitations- Mobility/Gait Walking 1/2 mile daily. Functional Limitations- Recreation/ See below Hobbies Functional Limitations- Other Restricted from activities for 6 wks post op on 07/21/20 (in 2 more weeks, 09/02/20). 10# lifting restriction, Restricted from squatting. Personal Factors Other Personal Factors That May Effect Has cervical stenosis with Therapy/Recovery occasional numbness in both hands, worse on R side. PT-OP-C Subjective Start: 08/15/20 18:47 Freq: Status: Active Protocol: Document 08/21/20 09:45 LRN (Rec: 08/21/20 11:06 LRN [id number]) OP-PT Subjective Patient Comments Patient Comments States he is doing well. States he walked last night almost 1/2 mile. Was achy and sat and it went away after 15 '. Hasn't taken any pain pills (IBP). PT-OP-G Mobility & Gait Start: 08/15/20 18:47 Freq: Status: Active Protocol: Document 08/18/20 12:48 LRN (Rec: 08/18/20 17:00 LRN [id number]) OP Mobility Evaluation Bed Mobility Rolling Independent with no TA tightening evident Supine to and from Sit Log roll technique with no TA tightening evident OP Gait Assessment Gait Gait Assistance Required: Independent Able to Maintain Weight Bearing Status Yes During Gait Assistive Devices Assistive Device None Gait Deviations General Gait Pattern Lateral Trunk Lean,Wide Based Gait PT-OP-H Neuro Start: 08/15/20 18:47 Freq: Status: Active Protocol: Document 08/18/20 12:48 LRN (Rec: 08/18/20 17:00 LRN [id number]) Sensation Evaluation Gross Sensation Sensation Description Hyperesthesia PT-OP-J Posture/Palpation/Skin Start: 08/15/20 18:47 Freq: Status: Active Protocol: Document 08/18/20 12:48 LRN (Rec: 08/18/20 17:00 LRN [id number]) Posture Evaluation Position Standing Head/C-Spine Posture Forward Head T-Spine Posture Flattened L-Spine Posture Flattened Shoulder Posture (L) Elevated Weight Distribution Decreased Wt.Bear on (R) Comments Posture Comments Extremely wide stance. PT-OP-K Range of Motion Start: 08/15/20 18:47 Freq: Status: Active Protocol: Document 08/18/20 12:48 LRN (Rec: 08/18/20 17:00 LRN [id number]) Lumbar Spine Range of Motion Lumbar Spine Active Degrees Testing Position Standing Flexion 65 Extension 15 Lateral Flexion Left 13 Lateral Flexion Right 10 ROM Limitations Soft Tissue Tightness,Pain Comments Rotation ~ 10 deg's bilaterally PT-OP-M Strength Start: 08/15/20 18:47 Freq: Status: Active Protocol: Document 08/18/20 12:48 LRN (Rec: 08/18/20 17:00 LRN [id number]) Trunk Strength Trunk Manual Muscle Testing Testing Position Sitting Flexion 2 Poor Lateral Flexion Left 3+ Fair+ Lateral Flexion Right 3+ Fair+ Core Stabilization Deferred resisted MMT due to recent surgery. Pt strength assessed per functional mobility. Pt was able to maintain core stability with MMT of hip flexors in supine. Hip Strength Hip Manual Muscle Testing Right Flexion (L2) 5 Normal Abduction 5 Normal Adduction 2+ Poor+ Left Flexion (L2) 5 Normal Abduction 5 Normal Adduction 2+ Poor+ PT-OP-Q Treatments Start: 08/15/20 18:47 Freq: Status: Active Protocol: Document 08/21/20 09:45 LRN (Rec: 08/21/20 11:06 LRN [id number]) Therapeutic Exercises Supine Exercises Chest Breathing Supine Exercise Name Chest breathing training w/ manual stim at chest Side bilateral Reps/Minutes 10' Comments Cuing to improve chest excursion generally and L>R. TA tightening Supine Exercise Name TA tightening Reps/Minutes 3' Comments No TA tightening of Lower abdomen due to MESH, inferior to ribs is visible. Sidelying Exercises TA tightening Sidelying Exercise Name TA tightening Side bilateral Reps/Minutes 20' Comments Pt having trouble breathing while holding TA contraction Self-Care/Home Management Treatment Education Patient Education Home Exercise Program Other Education Pt education, with handout provided and reviewed, in: core anatomy, breathing mechanics, TA tightening with indepth review of handout specifics. Activities Self-Care/Home Management Activities Issued & verbally reviewed hands/knees TA tightening exercise. PT-OP-T Assessment and Plan Start: 08/15/20 18:47 Freq: Status: Active Protocol: Document 08/21/20 09:45 LRN (Rec: 08/21/20 11:06 LRN [id number]) Physical Therapy Assessment Goals Four Impairment Pt is under UE lifting restrictions Short Term Goal (STG) Pt will be able to perform active UE movements to simulate motions of cutting of wood and working on a boat. 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 LTG Duration 11/16/20 Three Impairment Decreased tolerance to exercise. Short Term Goal (STG) Pt will be able to perform a TA contraction and hold it during transfers and functional activities. 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 LTG Duration 11/16/20 Two Impairment Poor abdominal/core stabilization Short Term Goal (STG) Pt will be able to demonstrate proper body mechanics for functional activities. (08/21/20: Pt notes TA tightening prior to transfer sit<>supine). 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 LTG Duration 11/16/20 One Impairment Pt lacks appropriate self care HEP Short Term Goal (STG) Pt will be independent with a self care HEP of ROM exercises . STG Duration 10/03/20 Correction Goal (LTG) Pt will be independent with a self care HEP of continued strengthening exercises. (08/21/20: TA tightening in sup & hands/knees, chest breathing, and core anatomy education). LTG Duration 11/16/20 (08/21/20: Progressing) Progress Towards Goals Progress Comments Improved awareness of anatomy, muscles and core stabilization with education and physical cuing training. Much training is still needed. Assessment Summary Assessment Pt is a 64 year old male who is post op surgical intervention (~07/21/20) following a L1-L2 disc herniation with loss of use of LE's. Pt needed further training and education of TA tightening/core stabilization before hip assessment. He is a habitual abdominal breather and shows very little chest excursion with breathing, but demonstrated improved awareness of being able to slightly breath through his chest with physical stimulation and cuing. The pt is better educated in core stabilization with emphasis on learning anterior trunk strengthening. He is not able to maintain abdominal tightening when breathing. Much training is needed. Physical Therapy Plan Frequency and Duration Frequency of Treatment 2x/Week Plan of Care Start Date 08/18/20 Plan of Care End Date 11/16/20 Next Visit Focus/Plan Next Note Type Treatment Note Next Visit Plan Assess hip mobility and strength and start HEP for strengthening and ROM exercises as appropriate. Assess for proper transfers with TA tightening during activities. Gait assessment and training. Core stabilization exercises as pt is able to tolerate with caution of MESH in abdomen. When lift precautions lifted initiate UE strengthening and body mechanics training. Start endurance ex of TM with focus on core stabilization, and hip/strengthening including functional movements such as squats. Maximize lower abdominal strengthening.
--- NOTE | 2020-08-25 09:42 | PT.OTN ---
Current Diagnoses Stiffness of right hip, not elsewhere classified (08/25/20) Radiculopathy, lumbar region (08/25/20) Muscle weakness (generalized) (08/25/20) Physical Therapy Treatment Note PT-OP-A Visit Information Start: 08/15/20 18:47 Freq: Status: Active Protocol: Document 08/25/20 09:03 SP (Rec: 08/25/20 09:57 SP [id number]) Out-Patient Physical Therapy Visit Information Visit Information Visit Type Treatment Note Visit Start Time 09:03 Visit Stop Time 09:45 Total Visit Minutes 42 Visit Number 3 Number of EXPEDITER Visits 1 PT-OP-B Current Condition Start: 08/15/20 18:47 Freq: Status: Active Protocol: Document 08/18/20 12:48 LRN (Rec: 08/18/20 17:00 LRN [id number]) Current Condition History of Current Condition Onset Date ~07/07/20 Current Complaints Low back pain and down legs with walking. Buttock pain at night. History of Current Condition Back and low back pain for years and something set off the blown L1 disc. Told spinal column fluid may leak. States his back surgery was to put a tube in his back and clean out spinal column on , and he is now almost healed. States he was in wheelchair for 10 days due to blown L1 disc and lost use of legs. States he is now walking 1/2 mile for exercise with muscle pain in his back after walking. He is currently restricted in lifting, squatting: no more than 10# (gal of milk) for another 2 weeks. Ready to get back exercising on his eliptical. Has been off hydrocodone and tylenol for 4 days, taking Gabapentin for neck pain. PMH: R TKA - 2019, Abdominal surgery x 4 (last year ~1998, ~2001, ~2002, ~2003), controlled HBP. Prior Treatments and Tests Neck rehabilitation several years ago. X-ray (07/09/20): Grade II L5-S1 isthmic spondylolisthesis; multilevel DDD (T12 through S1 discs of moderate disc bulge except L5- S1 mild disc bulge); multilevel facte arthropathy; L1-L2 disc extrusion causing severe central canal stenosis and compression of the traversing nerve roots of the cauda equina; and Severe bilateral L5-S1 neural foraminal narrowing with compression of the exiting bilateral L5 nerve roots, Moderate to severe left L4-L5 neural foraminal narrowing with slight compression of the exiting left L4 nerve root. Future Testing and Treatments Planned Next surgeon MD visit is in 2 weeks. Will also see Dr. Townsend for surgery f/u and medications review (Gabapentin). Developmental History Developmental History Hx of neck pain that he just deals with. Pt reports Hernia abdominal repair with 2 mesh surgeries that failed. Last surgery placed a mesh across his abdomen horizontally. Can't do sit ups, but can tense abdomen. 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 Has medicine ball and wants to be able to stretch out. Takes Tylenol to sleep through the night. Functional Limitations- Mobility/Gait Walking 1/2 mile daily. Functional Limitations- Recreation/ See below Hobbies Functional Limitations- Other Restricted from activities for 6 wks post op on 07/21/20 (in 2 more weeks, 09/02/20). 10# lifting restriction, Restricted from squatting. Personal Factors Other Personal Factors That May Effect Has cervical stenosis with Therapy/Recovery occasional numbness in both hands, worse on R side. PT-OP-C Subjective Start: 08/15/20 18:47 Freq: Status: Active Protocol: Document 08/25/20 09:03 SP (Rec: 08/25/20 09:57 SP [id number]) OP-PT Subjective Patient Comments Patient Comments Pt states is compliant with HEP, has to be inclined to be successful in HEP at this time . Pt stated has a follow up with Dr Clark, PT-OP-G Mobility & Gait Start: 08/15/20 18:47 Freq: Status: Active Protocol: Document 08/18/20 12:48 LRN (Rec: 08/18/20 17:00 LRN [id number]) OP Mobility Evaluation Bed Mobility Rolling Independent with no TA tightening evident Supine to and from Sit Log roll technique with no TA tightening evident OP Gait Assessment Gait Gait Assistance Required: Independent Able to Maintain Weight Bearing Status Yes During Gait Assistive Devices Assistive Device None Gait Deviations General Gait Pattern Lateral Trunk Lean,Wide Based Gait PT-OP-H Neuro Start: 08/15/20 18:47 Freq: Status: Active Protocol: Document 08/18/20 12:48 LRN (Rec: 08/18/20 17:00 LRN [id number]) Sensation Evaluation Gross Sensation Sensation Description Hyperesthesia PT-OP-J Posture/Palpation/Skin Start: 08/15/20 18:47 Freq: Status: Active Protocol: Document 08/18/20 12:48 LRN (Rec: 08/18/20 17:00 LRN [id number]) Posture Evaluation Position Standing Head/C-Spine Posture Forward Head T-Spine Posture Flattened L-Spine Posture Flattened Shoulder Posture (L) Elevated Weight Distribution Decreased Wt.Bear on (R) Comments Posture Comments Extremely wide stance. PT-OP-K Range of Motion Start: 08/15/20 18:47 Freq: Status: Active Protocol: Document 08/18/20 12:48 LRN (Rec: 08/18/20 17:00 LRN [id number]) Lumbar Spine Range of Motion Lumbar Spine Active Degrees Testing Position Standing Flexion 65 Extension 15 Lateral Flexion Left 13 Lateral Flexion Right 10 ROM Limitations Soft Tissue Tightness,Pain Comments Rotation ~ 10 deg's bilaterally PT-OP-M Strength Start: 08/15/20 18:47 Freq: Status: Active Protocol: Document 08/18/20 12:48 LRN (Rec: 08/18/20 17:00 LRN [id number]) Trunk Strength Trunk Manual Muscle Testing Testing Position Sitting Flexion 2 Poor Lateral Flexion Left 3+ Fair+ Lateral Flexion Right 3+ Fair+ Core Stabilization Deferred resisted MMT due to recent surgery. Pt strength assessed per functional mobility. Pt was able to maintain core stability with MMT of hip flexors in supine. Hip Strength Hip Manual Muscle Testing Right Flexion (L2) 5 Normal Abduction 5 Normal Adduction 2+ Poor+ Left Flexion (L2) 5 Normal Abduction 5 Normal Adduction 2+ Poor+ PT-OP-Q Treatments Start: 08/15/20 18:47 Freq: Status: Active Protocol: Document 08/25/20 09:03 SP (Rec: 08/25/20 09:57 SP [id number]) Therapeutic Exercises Supine Exercises supine clamshell Side bilateral Resistance AROM Reps/Minutes 2x5 Comments cued slow motion core heel slide Supine Exercise Name single leg Side bilateral Resistance AROM Equipment Used wedge Reps/Minutes 2x5 Comments better with opposite LE bent Chest Breathing Supine Exercise Name Chest breathing training w/ manual stim at chest Side bilateral Equipment Used inclined wedge and 2 pillows Reps/Minutes 10' Comments Cuing to improve chest excursion generally and L>R. TA tightening Supine Exercise Name TA tightening Reps/Minutes 3' Comments No TA tightening of Lower abdomen due to MESH, inferior to ribs is visible. Standing Exercises core wall slide Resistance AROM Equipment Used back towall Reps/Minutes x8 Comments cued Lower TS toward wall Other Exercises self massage Other Exercise Name paraspinals in LS Equipment Used racquetball on wall Reps/Minutes 30 sec Comments pressure to tolerance,not over spine- good feeback Self-Care/Home Management Treatment Education Patient Education Home Exercise Program Other Education Pt education, with handout provided and reviewed, in: breathing mechanics, TA tightening with indepth review of handout specifics, incorporated LE movement with core heel slide, clamshell, wall slides. Activities Self-Care/Home Management Activities Assessed core engagement during log roll sit<> supine w / UE assist. PT-OP-T Assessment and Plan Start: 08/15/20 18:47 Freq: Status: Active Protocol: Document 08/25/20 09:03 SP (Rec: 08/25/20 09:57 SP [id number]) Physical Therapy Assessment Goals Four Impairment Pt is under UE lifting restrictions Short Term Goal (STG) Pt will be able to perform active UE movements to simulate motions of cutting of wood and working on a boat. STG Duration 09/08/20 Vending Machine Assembler Goal (LTG) Pt will be able to help his son work on his rental homes using modified techniques to prevent onset of LBP/LE pain. LTG Duration 11/16/20 Three Impairment Decreased tolerance to exercise. Short Term Goal (STG) Pt will be able to perform a TA contraction and hold it during transfers and functional activities. STG Duration 10/03/20 (08/21/20: Progressing) Vending Machine Assembler Goal (LTG) Pt will be able to return to ex on his eliptical machine cutting wood), wood working and being on a boat, help his son work on his rental homes. LTG Duration 11/16/20 Two Impairment Poor abdominal/core stabilization Short Term Goal (STG) Pt will be able to demonstrate proper body mechanics for functional activities. (08/21/20: Pt notes TA tightening prior to transfer sit<>supine). STG Duration 10/03/20 (08/21/20: Improving) Custodial Goal (LTG) Pt will be able to working on his property for short periods without lasting low back discomfort or posterior LE pain (lawn mowing, pruning, helping in garden), wood working and being on a boat, help his son work on his rental homes. LTG Duration 11/16/20 One Impairment Pt lacks appropriate self care HEP Short Term Goal (STG) Pt will be independent with a self care HEP of ROM exercises . STG Duration 10/03/20 Custodial Goal (LTG) Pt will be independent with a self care HEP of continued strengthening exercises. (08/25/20: TA tightening in sup & hands/knees, chest breathing, core heel slide, DKFO, wall slide, self massage racq ball wall). LTG Duration 11/16/20 (08/21/20: Progressing) Assessment Summary Assessment Pt tolerated tx well, cued slow LE movement control, inclined wedge for trunk suport at this time. Physical Therapy Plan Frequency and Duration Frequency of Treatment 2x/Week Plan of Care Start Date 08/18/20 Plan of Care End Date 11/16/20 Therapeutic Interventions Therapeutic Interventions Home Exercise Program,Joint Mobilizations,Manual Therapy, Neuromuscular Re-education, Patient/Caregiver Education, Self-Care/Home Management,Soft Tissue Mobilization,Taping, Therapeutic Activities, Therapeutic Exercises Modalities Cold Pack/Ice Massage,Electric Stimulation,Hot Packs, Traction- Mechanical, Ultrasound Next Visit Focus/Plan Next Note Type Treatment Note Next Visit Plan Assess response to core HEP review and initiated core heel slide/DKFO/ wall slide per pt request. Next tx Assess hip mobility and strength and start HEP for strengthening and ROM exercises as appropriate. Assess for proper transfers with TA tightening during activities. Gait assessment and training. Core stabilization exercises as pt is able to tolerate with caution of MESH in abdomen. When lift precautions lifted initiate UE strengthening and body mechanics training. Start endurance ex of TM with focus on core stabilization, and hip /strengthening including functional movements such as squats. Maximize lower abdominal strengthening.
--- NOTE | 2020-08-28 09:47 | PT.OTN ---
Current Diagnoses Stiffness of right hip, not elsewhere classified (08/28/20) Radiculopathy, lumbar region (08/28/20) Muscle weakness (generalized) (08/28/20) Physical Therapy Treatment Note PT-OP-A Visit Information Start: 08/15/20 18:47 Freq: Status: Active Protocol: Document 08/28/20 09:07 SP (Rec: 08/28/20 12:16 SP [id number]) Out-Patient Physical Therapy Visit Information Visit Information Visit Type Treatment Note Visit Start Time 09:07 Visit Stop Time 09:47 Total Visit Minutes 40 Visit Number 4 Number of BANK ACCOUNTANT Visits 2 Evaluation Information Evaluation Date 08/18/20 Precautions Precautions Pt reported abdominal MESH surgery x 3 with no rectus abdominus muscle present. 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 PT-OP-B Current Condition Start: 08/15/20 18:47 Freq: Status: Active Protocol: Document 08/18/20 12:48 LRN (Rec: 08/18/20 17:00 LRN [id number]) Current Condition History of Current Condition Onset Date ~07/07/20 Current Complaints Low back pain and down legs with walking. Buttock pain at night. History of Current Condition Back and low back pain for years and something set off the blown L1 disc. Told spinal column fluid may leak. States his back surgery was to put a tube in his back and clean out spinal column on , and he is now almost healed. States he was in wheelchair for 10 days due to blown L1 disc and lost use of legs. States he is now walking 1/2 mile for exercise with muscle pain in his back after walking. He is currently restricted in lifting, squatting: no more than 10# (gal of milk) for another 2 weeks. Ready to get back exercising on his eliptical. Has been off hydrocodone and tylenol for 4 days, taking Gabapentin for neck pain. PMH: R TKA - 2019, Abdominal surgery x 4 (last year ~1998, ~2001, ~2002, ~2003), controlled HBP. Prior Treatments and Tests Neck rehabilitation several years ago. X-ray (07/09/20): Grade II L5-S1 isthmic spondylolisthesis; multilevel DDD (T12 through S1 discs of moderate disc bulge except L5- S1 mild disc bulge); multilevel facte arthropathy; L1-L2 disc extrusion causing severe central canal stenosis and compression of the traversing nerve roots of the cauda equina; and Severe bilateral L5-S1 neural foraminal narrowing with compression of the exiting bilateral L5 nerve roots, Moderate to severe left L4-L5 neural foraminal narrowing with slight compression of the exiting left L4 nerve root. Future Testing and Treatments Planned Next surgeon MD visit is in 2 weeks. Will also see Dr. Townsend for surgery f/u and medications review (Gabapentin). Developmental History Developmental History Hx of neck pain that he just deals with. Pt reports Hernia abdominal repair with 2 mesh surgeries that failed. Last surgery placed a mesh across his abdomen horizontally. Can't do sit ups, but can tense abdomen. 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 Has medicine ball and wants to be able to stretch out. Takes Tylenol to sleep through the night. Functional Limitations- Mobility/Gait Walking 1/2 mile daily. Functional Limitations- Recreation/ See below Hobbies Functional Limitations- Other Restricted from activities for 6 wks post op on 07/21/20 (in 2 more weeks, 09/02/20). 10# lifting restriction, Restricted from squatting. Personal Factors Other Personal Factors That May Effect Has cervical stenosis with Therapy/Recovery occasional numbness in both hands, worse on R side. PT-OP-C Subjective Start: 08/15/20 18:47 Freq: Status: Active Protocol: Document 08/28/20 09:07 SP (Rec: 08/28/20 12:16 SP [id number]) OP-PT Subjective Patient Comments Patient Comments Pt stated is walking about 1/4 miles mostly level and aching LB muscles after done that goes away with seated rest. Is compliant with HEP. Pt stated good results with ball roll paraspinals when needed, only needed x1. Pt did see his massage therapist since last tx. PT-OP-G Mobility & Gait Start: 08/15/20 18:47 Freq: Status: Active Protocol: Document 08/18/20 12:48 LRN (Rec: 08/18/20 17:00 LRN [id number]) OP Mobility Evaluation Bed Mobility Rolling Independent with no TA tightening evident Supine to and from Sit Log roll technique with no TA tightening evident OP Gait Assessment Gait Gait Assistance Required: Independent Able to Maintain Weight Bearing Status Yes During Gait Assistive Devices Assistive Device None Gait Deviations General Gait Pattern Lateral Trunk Lean,Wide Based Gait PT-OP-H Neuro Start: 08/15/20 18:47 Freq: Status: Active Protocol: Document 08/18/20 12:48 LRN (Rec: 08/18/20 17:00 LRN [id number]) Sensation Evaluation Gross Sensation Sensation Description Hyperesthesia PT-OP-J Posture/Palpation/Skin Start: 08/15/20 18:47 Freq: Status: Active Protocol: Document 08/18/20 12:48 LRN (Rec: 08/18/20 17:00 LRN [id number]) Posture Evaluation Position Standing Head/C-Spine Posture Forward Head T-Spine Posture Flattened L-Spine Posture Flattened Shoulder Posture (L) Elevated Weight Distribution Decreased Wt.Bear on (R) Comments Posture Comments Extremely wide stance. PT-OP-K Range of Motion Start: 08/15/20 18:47 Freq: Status: Active Protocol: Document 08/18/20 12:48 LRN (Rec: 08/18/20 17:00 LRN [id number]) Lumbar Spine Range of Motion Lumbar Spine Active Degrees Testing Position Standing Flexion 65 Extension 15 Lateral Flexion Left 13 Lateral Flexion Right 10 ROM Limitations Soft Tissue Tightness,Pain Comments Rotation ~ 10 deg's bilaterally PT-OP-M Strength Start: 08/15/20 18:47 Freq: Status: Active Protocol: Document 08/18/20 12:48 LRN (Rec: 08/18/20 17:00 LRN [id number]) Trunk Strength Trunk Manual Muscle Testing Testing Position Sitting Flexion 2 Poor Lateral Flexion Left 3+ Fair+ Lateral Flexion Right 3+ Fair+ Core Stabilization Deferred resisted MMT due to recent surgery. Pt strength assessed per functional mobility. Pt was able to maintain core stability with MMT of hip flexors in supine. Hip Strength Hip Manual Muscle Testing Right Flexion (L2) 5 Normal Abduction 5 Normal Adduction 2+ Poor+ Left Flexion (L2) 5 Normal Abduction 5 Normal Adduction 2+ Poor+ PT-OP-Q Treatments Start: 08/15/20 18:47 Freq: Status: Active Protocol: Document 08/28/20 09:07 SP (Rec: 08/28/20 12:16 SP [id number]) Therapeutic Exercises Supine Exercises hip IR/ ER stretch Side bilateral Reps/Minutes 3x30 sec each supine clamshell Side bilateral Resistance TB #3 Reps/Minutes x25 Comments cued slow motion with good TA facilitation core heel slide Supine Exercise Name single leg Side bilateral Resistance AROM small range LE ext Equipment Used supine on wedge Reps/Minutes x15 Comments better with opposite LE bent, cued slow small range Chest Breathing Supine Exercise Name Chest breathing training w/ manual stim at chest Side bilateral Equipment Used inclined wedge and 2 pillows Reps/Minutes 10' Comments Cuing to improve chest excursion generally and L>R. TA tightening Supine Exercise Name TA tightening Equipment Used supine on wedge Reps/Minutes 5' Comments improved lower TA facilitation Sidelying Exercises TA tightening Sidelying Exercise Name TA tightening Side bilateral Reps/Minutes 5' Comments improved TA facilitation- contact feedback, cued w/slow breath Other Exercises self massage Other Exercise Name paraspinals in LS Equipment Used racquetball on wall Reps/Minutes 30 sec Comments pressure to tolerance,not over spine- good feeback PT-OP-T Assessment and Plan Start: 08/15/20 18:47 Freq: Status: Active Protocol: Document 08/28/20 09:07 SP (Rec: 08/28/20 12:16 SP [id number]) Physical Therapy Assessment Goals Four Impairment Pt is under UE lifting restrictions Short Term Goal (STG) Pt will be able to perform active UE movements to simulate motions of cutting of wood and working on a boat. 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 LTG Duration 11/16/20 Three Impairment Decreased tolerance to exercise. Short Term Goal (STG) Pt will be able to perform a TA contraction and hold it during transfers and functional activities. 08/28/20: progressing: continue to requiring cuing for log roll onto side and core facilitation for transition to sitting. 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 LTG Duration 11/16/20 Two Impairment Poor abdominal/core stabilization Short Term Goal (STG) Pt will be able to demonstrate proper body mechanics for functional activities. (08/26/20: Pt notes TA tightening prior to transfer sit<>supine), does requiring occasional cuing. 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 08/28/20: pt states is able to walk 1/4 mile in neighborhood with little LB soreness that rest after resolves it. LTG Duration 11/16/20 One Impairment Pt lacks appropriate self care HEP Short Term Goal (STG) Pt will be independent with a self care HEP of ROM exercises . STG Duration 10/03/20 [facility]ci Goal (LTG) Pt will be independent with a self care HEP of continued strengthening exercises. (08/25/20: TA tightening in sup & hands/knees, chest breathing, core heel slide, DKFO w/ TB, wall slide, self massage racq ball wall, Hamstring/hip stretch elevated supine/sit). LTG Duration 11/16/20 (08/21/20: Progressing) Progress Towards Goals Progress Comments Improved awareness of core stabilization with education and physical cuing training. Continued cues for lower core facilitation better today, able to feel. Assessment Summary Assessment Pt tolerated tx well with focus on HEP review, cued slow LE movement control during TA heel slide, continue require inclined wedge for trunk support at this time. TA trng and education on position to allow success facilitating engagement and not over tighteniing with successful ability to feel lower abdominals today. Physical Therapy Plan Frequency and Duration Frequency of Treatment 2x/Week Plan of Care Start Date 08/18/20 Plan of Care End Date 11/16/20 Therapeutic Interventions Therapeutic Interventions Home Exercise Program,Joint Mobilizations,Manual Therapy, Neuromuscular Re-education, Patient/Caregiver Education, Self-Care/Home Management,Soft Tissue Mobilization,Taping, Therapeutic Activities, Therapeutic Exercises Modalities Cold Pack/Ice Massage,Electric Stimulation,Hot Packs, Traction- Mechanical, Ultrasound Next Visit Focus/Plan Next Note Type Treatment Note Next Visit Plan Assess response to core HEP review, hip flexibility. Next tx start HEP for strengthening and ROM exercises as appropriate. Assess for proper transfers with TA tightening during activities. Gait assessment and training. Core stabilization exercises as pt is able to tolerate with caution of MESH in abdomen. When lift precautions lifted initiate UE strengthening and body mechanics training. Start endurance ex of TM with focus on core stabilization, and hip/strengthening including functional movements such as squats. Maximize lower abdominal strengthening.
--- NOTE | 2020-09-01 10:34 | PT.OTN ---
Current Diagnoses Stiffness of right hip, not elsewhere classified (09/01/20) Radiculopathy, lumbar region (09/01/20) Muscle weakness (generalized) (09/01/20) Physical Therapy Treatment Note PT-OP-A Visit Information Start: 08/15/20 18:47 Freq: Status: Active Protocol: Document 09/01/20 09:45 SP (Rec: 09/01/20 11:41 SP [id number]) Out-Patient Physical Therapy Visit Information Visit Information Visit Type Treatment Note Visit Start Time 09:45 Visit Stop Time 10:34 Total Visit Minutes 49 Visit Number 5 Number of [facility] Visits 3 Evaluation Information Evaluation Date 08/18/20 Precautions Precautions Pt reported abdominal MESH surgery x 3 with no rectus abdominus muscle present. 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 PT-OP-B Current Condition Start: 08/15/20 18:47 Freq: Status: Active Protocol: Document 08/18/20 12:48 LRN (Rec: 08/18/20 17:00 LRN [id number]) Current Condition History of Current Condition Onset Date ~07/07/20 Current Complaints Low back pain and down legs with walking. Buttock pain at night. History of Current Condition Back and low back pain for years and something set off the blown L1 disc. Told spinal column fluid may leak. States his back surgery was to put a tube in his back and clean out spinal column on , and he is now almost healed. States he was in wheelchair for 10 days due to blown L1 disc and lost use of legs. States he is now walking 1/2 mile for exercise with muscle pain in his back after walking. He is currently restricted in lifting, squatting: no more than 10# (gal of milk) for another 2 weeks. Ready to get back exercising on his eliptical. Has been off hydrocodone and tylenol for 4 days, taking Gabapentin for neck pain. PMH: R TKA - 2019, Abdominal surgery x 4 (last year ~1998, ~2001, ~2002, ~2003), controlled HBP. Prior Treatments and Tests Neck rehabilitation several years ago. X-ray (07/09/20): Grade II L5-S1 isthmic spondylolisthesis; multilevel DDD (T12 through S1 discs of moderate disc bulge except L5- S1 mild disc bulge); multilevel facte arthropathy; L1-L2 disc extrusion causing severe central canal stenosis and compression of the traversing nerve roots of the cauda equina; and Severe bilateral L5-S1 neural foraminal narrowing with compression of the exiting bilateral L5 nerve roots, Moderate to severe left L4-L5 neural foraminal narrowing with slight compression of the exiting left L4 nerve root. Future Testing and Treatments Planned Next surgeon MD visit is in 2 weeks. Will also see Dr. Townsend for surgery f/u and medications review (Gabapentin). Developmental History Developmental History Hx of neck pain that he just deals with. Pt reports Hernia abdominal repair with 2 mesh surgeries that failed. Last surgery placed a mesh across his abdomen horizontally. Can't do sit ups, but can tense abdomen. 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 Has medicine ball and wants to be able to stretch out. Takes Tylenol to sleep through the night. Functional Limitations- Mobility/Gait Walking 1/2 mile daily. Functional Limitations- Recreation/ See below Hobbies Functional Limitations- Other Restricted from activities for 6 wks post op on 07/21/20 (in 2 more weeks, 09/02/20). 10# lifting restriction, Restricted from squatting. Personal Factors Other Personal Factors That May Effect Has cervical stenosis with Therapy/Recovery occasional numbness in both hands, worse on R side. PT-OP-C Subjective Start: 08/15/20 18:47 Freq: Status: Active Protocol: Document 09/01/20 09:45 SP (Rec: 09/01/20 11:41 SP [id number]) OP-PT Subjective Patient Comments Patient Comments Pt reports is doing well, able to increased TA x 15 reps before tires and awareness keep engagement with good form , trialed OH 10# DB elevated supine with no pain or stress to abdominals. Pt stated is confident with HEP and very compliant, follows up with surgeon tomorrow and hoping can start to do more lifting, feels is getting stronger and can take on more normal activities. PT-OP-G Mobility & Gait Start: 08/15/20 18:47 Freq: Status: Active Protocol: Document 08/18/20 12:48 LRN (Rec: 08/18/20 17:00 LRN [id number]) OP Mobility Evaluation Bed Mobility Rolling Independent with no TA tightening evident Supine to and from Sit Log roll technique with no TA tightening evident OP Gait Assessment Gait Gait Assistance Required: Independent Able to Maintain Weight Bearing Status Yes During Gait Assistive Devices Assistive Device None Gait Deviations General Gait Pattern Lateral Trunk Lean,Wide Based Gait PT-OP-H Neuro Start: 08/15/20 18:47 Freq: Status: Active Protocol: Document 08/18/20 12:48 LRN (Rec: 08/18/20 17:00 LRN [id number]) Sensation Evaluation Gross Sensation Sensation Description Hyperesthesia PT-OP-J Posture/Palpation/Skin Start: 08/15/20 18:47 Freq: Status: Active Protocol: Document 08/18/20 12:48 LRN (Rec: 08/18/20 17:00 LRN [id number]) Posture Evaluation Position Standing Head/C-Spine Posture Forward Head T-Spine Posture Flattened L-Spine Posture Flattened Shoulder Posture (L) Elevated Weight Distribution Decreased Wt.Bear on (R) Comments Posture Comments Extremely wide stance. PT-OP-K Range of Motion Start: 08/15/20 18:47 Freq: Status: Active Protocol: Document 08/18/20 12:48 LRN (Rec: 08/18/20 17:00 LRN [id number]) Lumbar Spine Range of Motion Lumbar Spine Active Degrees Testing Position Standing Flexion 65 Extension 15 Lateral Flexion Left 13 Lateral Flexion Right 10 ROM Limitations Soft Tissue Tightness,Pain Comments Rotation ~ 10 deg's bilaterally PT-OP-M Strength Start: 08/15/20 18:47 Freq: Status: Active Protocol: Document 08/18/20 12:48 LRN (Rec: 08/18/20 17:00 LRN [id number]) Trunk Strength Trunk Manual Muscle Testing Testing Position Sitting Flexion 2 Poor Lateral Flexion Left 3+ Fair+ Lateral Flexion Right 3+ Fair+ Core Stabilization Deferred resisted MMT due to recent surgery. Pt strength assessed per functional mobility. Pt was able to maintain core stability with MMT of hip flexors in supine. Hip Strength Hip Manual Muscle Testing Right Flexion (L2) 5 Normal Abduction 5 Normal Adduction 2+ Poor+ Left Flexion (L2) 5 Normal Abduction 5 Normal Adduction 2+ Poor+ PT-OP-Q Treatments Start: 08/15/20 18:47 Freq: Status: Active Protocol: Document 09/01/20 09:45 SP (Rec: 09/01/20 11:41 SP [id number]) Therapeutic Exercises Supine Exercises hip IR/ ER stretch Side bilateral Reps/Minutes 3x30 sec each supine clamshell Side bilateral Resistance TB #3 (GTB) Equipment Used supine on plinth w/ wedge no extra pillows Reps/Minutes x25 Comments cued slow motion with good TA facilitation core heel slide Supine Exercise Name single leg Side bilateral Resistance AROM able do full range Equipment Used supine on plinth w/ wedge no extra pillows Reps/Minutes 2x15 Comments better with opposite LE bent, cued slow small range Chest Breathing Supine Exercise Name Chest breathing training w/ manual stim at chest Side bilateral Equipment Used inclined wedge and 2 pillows Reps/Minutes 10' Comments Cuing to improve chest excursion generally and L>R. TA tightening Supine Exercise Name TA tightening (knees bent, elbows slight bent)- eaching FF OH Resistance AROM- discussed no # at this time til cleared by physician Equipment Used supine on plinth w/ wedge no extra pillows Reps/Minutes 2-3 sec x10 Comments improved lower TA facilitation Sidelying Exercises clamshell Side bilateral Resistance AROM Reps/Minutes x10 Comments cued slow TA facilitation not full ROM, con/ eccentric TA tightening Sidelying Exercise Name TA tightening Side bilateral Reps/Minutes 30 sec hold Comments improved TA facilitation- contact feedback, occasional w /slow breath Standing Exercises resisted row Standing Exercise Name added to HEP Side bilateral Resistance TB #2 Reps/Minutes x10 Comments cue x1 for scapular stab, tall posture, TA facil- good self corrections shld ext Standing Exercise Name added to HEP Side bilateral Resistance tb #2 Reps/Minutes x10 Comments cue x1 for scapular stab, tall posture, TA facil- good self corrections core wall slide Standing Exercise Name Head near wall, shld, pelvis back to wall Resistance AROM approx 50 deg hip flexion Reps/Minutes 15 reps x2 sec hold Comments cued Lower TS toward wall Other Exercises self massage Other Exercise Name paraspinals in LS- discussed doing at home PRN- very helpful Equipment Used racquetball on wall Reps/Minutes 30 sec Comments pressure to tolerance,not over spine- good feeback Self-Care/Home Management Treatment Education Patient Education Home Exercise Program Other Education Provided sidelying clamshell AROM, standing UE core faciliated low resisted row and shld ext to side leg only with good core facilitation and postural self corrections post 2 cues with no pain or pressure to abdominals. Activities Self-Care/Home Management Activities Pt continues require log roll and UE assist during sit<> supine and use of wedge in supine but able to remove extra pillows. Discussed precautions of lifting and for safety hold off on use of chain saw at this time and modified supine OH FF AROM only (no resistance) for safety abdominial healing until cleared by physician tomorrow. PT-OP-T Assessment and Plan Start: 08/15/20 18:47 Freq: Status: Active Protocol: Document 09/01/20 09:45 SP (Rec: 09/01/20 11:41 SP [id number]) Physical Therapy Assessment Goals Four Impairment Pt is under UE lifting restrictions Short Term Goal (STG) Pt will be able to perform active UE movements to simulate motions of cutting of wood and working on a boat. 09/01/20: progressing- is able to utilize chain saw to cut his wood with no resistance or pain, discussed to hold off until cleared by physican. 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 09/01/20: hold until cleared by physican LTG Duration 11/16/20 Three Impairment Decreased tolerance to exercise. Short Term Goal (STG) Pt will be able to perform a TA contraction and hold it during transfers and functional activities. 09/01/20: progressing: continue to requiring cuing for log roll onto side and core facilitation for transition to sitting. 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 09/01/20: progressing, son is helping with the lifting but able to use chain saw with no pain, discussed hold off until cleared by physician. LB so stationary standing still seems to be uncomfortable >5 min then needs to sit, not able to use elliptical yet due to challenge for breath and able stabilize abdominals just walking outside. LTG Duration 11/16/20 Two Impairment Poor abdominal/core stabilization Short Term Goal (STG) Pt will be able to demonstrate proper body mechanics for functional activities. (09/01/20: Pt demonstrates TA tightening prior to transfer sit<>supine and still use of UE support and better when performs slower). 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 09/01/20: pt states is able to walk 1/4 mile in neighborhood with little LB soreness that rest after resolves it. LTG Duration 11/16/20 One Impairment Pt lacks appropriate self care HEP Short Term Goal (STG) Pt will be independent with a self care HEP of ROM exercises . STG Duration 10/03/20 Nursing Home Goal (LTG) Pt will be independent with a self care HEP of continued strengthening exercises. (09/01/20: TA tightening in sup & hands/knees up to 15 reps, improved chest breathing, TA heel slide, DKFO w/ #4 TB, wall slide, self massage racq ball wall PRN, Hamstring/hip stretch elevated supine w/ strap or sit, shld ext and rows TB, sidelying clam shell AROM). LTG Duration 11/16/20 (09/01/20: Progressing) Progress Towards Goals Progress Comments Improved awareness of core stabilization and self corrections able lower incline supine, able to increased resistance of TA facil exercises supine and added low level resistance in standing. Assessment Summary Assessment Pt tolerated tx well. Reeducation regarding precautions of activities that can provide abdominal pressure during healing, such as use of chain saw, is good about not lifting. Follows up with surgeon tomorrow on progress and if cleared to do more activities and allowable resistance that is safe. Reviewed HEP with improved core stabilization, added side clamshell to replace TA tightening small range AROM and standing low resistance rows /shld ext with good demonstration and no pressure to abdominals and postural corrections for education on pre more active activies wantst to get to at home when cleared. Physical Therapy Plan Frequency and Duration Frequency of Treatment 2x/Week Plan of Care Start Date 08/18/20 Plan of Care End Date 11/16/20 Therapeutic Interventions Therapeutic Interventions Home Exercise Program,Joint Mobilizations,Manual Therapy, Neuromuscular Re-education, Patient/Caregiver Education, Self-Care/Home Management,Soft Tissue Mobilization,Taping, Therapeutic Activities, Therapeutic Exercises Modalities Cold Pack/Ice Massage,Electric Stimulation,Hot Packs, Traction- Mechanical, Ultrasound Next Visit Focus/Plan Next Note Type Treatment Note Next Visit Plan Assess response to core HEP review, added side clamshell and resisted row/ shld ext. Next tx Gait assessment and training. Core stabilization exercises as pt is able to tolerate with caution of MESH in abdomen. When lift precautions lifted initiate UE strengthening and body mechanics training. Start endurance ex of TM with focus on core stabilization, and hip /strengthening including functional movements such as squats. Maximize lower abdominal strengthening.
--- NOTE | 2020-09-04 09:00 | PT.OTN ---
Current Diagnoses Stiffness of right hip, not elsewhere classified (09/04/20) Radiculopathy, lumbar region (09/04/20) Muscle weakness (generalized) (09/04/20) Physical Therapy Treatment Note PT-OP-A Visit Information Start: 08/15/20 18:47 Freq: Status: Active Protocol: Document 09/04/20 08:13 SP (Rec: 09/04/20 09:23 SP [id number]) Out-Patient Physical Therapy Visit Information Visit Information Visit Type Treatment Note Visit Start Time 08:15 Visit Stop Time 09:00 Total Visit Minutes 45 Visit Number 6 Number of WINDOWS DESKTOP SUPPORT Visits 4 Evaluation Information Evaluation Date 08/18/20 Precautions Precautions Pt reported abdominal MESH surgery x 3 with no rectus abdominus muscle present. 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 PT-OP-B Current Condition Start: 08/15/20 18:47 Freq: Status: Active Protocol: Document 08/18/20 12:48 LRN (Rec: 08/18/20 17:00 LRN [id number]) Current Condition History of Current Condition Onset Date ~07/07/20 Current Complaints Low back pain and down legs with walking. Buttock pain at night. History of Current Condition Back and low back pain for years and something set off the blown L1 disc. Told spinal column fluid may leak. States his back surgery was to put a tube in his back and clean out spinal column on , and he is now almost healed. States he was in wheelchair for 10 days due to blown L1 disc and lost use of legs. States he is now walking 1/2 mile for exercise with muscle pain in his back after walking. He is currently restricted in lifting, squatting: no more than 10# (gal of milk) for another 2 weeks. Ready to get back exercising on his eliptical. Has been off hydrocodone and tylenol for 4 days, taking Gabapentin for neck pain. PMH: R TKA - 2019, Abdominal surgery x 4 (last year ~1998, ~2001, ~2002, ~2003), controlled HBP. Prior Treatments and Tests Neck rehabilitation several years ago. X-ray (07/09/20): Grade II L5-S1 isthmic spondylolisthesis; multilevel DDD (T12 through S1 discs of moderate disc bulge except L5- S1 mild disc bulge); multilevel facte arthropathy; L1-L2 disc extrusion causing severe central canal stenosis and compression of the traversing nerve roots of the cauda equina; and Severe bilateral L5-S1 neural foraminal narrowing with compression of the exiting bilateral L5 nerve roots, Moderate to severe left L4-L5 neural foraminal narrowing with slight compression of the exiting left L4 nerve root. Future Testing and Treatments Planned Next surgeon MD visit is in 2 weeks. Will also see Dr. Townsend for surgery f/u and medications review (Gabapentin). Developmental History Developmental History Hx of neck pain that he just deals with. Pt reports Hernia abdominal repair with 2 mesh surgeries that failed. Last surgery placed a mesh across his abdomen horizontally. Can't do sit ups, but can tense abdomen. 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 Has medicine ball and wants to be able to stretch out. Takes Tylenol to sleep through the night. Functional Limitations- Mobility/Gait Walking 1/2 mile daily. Functional Limitations- Recreation/ See below Hobbies Functional Limitations- Other Restricted from activities for 6 wks post op on 07/21/20 (in 2 more weeks, 09/02/20). 10# lifting restriction, Restricted from squatting. Personal Factors Other Personal Factors That May Effect Has cervical stenosis with Therapy/Recovery occasional numbness in both hands, worse on R side. PT-OP-C Subjective Start: 08/15/20 18:47 Freq: Status: Active Protocol: Document 09/04/20 08:13 SP (Rec: 09/04/20 09:23 SP [id number]) OP-PT Subjective Patient Comments Patient Comments Pt stated his neck is sore today with little tension on LB, has been like this for years though. Compliant with HEP and wondering of the new theraband standing arm exercises are contributing? Pt stated is walking about 1/4 mile every other day and has some soreness when done. Saw surgeon able to lift about 30 # now and with good body mechanics. Pt stated Dr Clark ordered an upper GI tomorrow due to anemia and bleed knows having. PT-OP-G Mobility & Gait Start: 08/15/20 18:47 Freq: Status: Active Protocol: Document 08/18/20 12:48 LRN (Rec: 08/18/20 17:00 LRN [id number]) OP Mobility Evaluation Bed Mobility Rolling Independent with no TA tightening evident Supine to and from Sit Log roll technique with no TA tightening evident OP Gait Assessment Gait Gait Assistance Required: Independent Able to Maintain Weight Bearing Status Yes During Gait Assistive Devices Assistive Device None Gait Deviations General Gait Pattern Lateral Trunk Lean,Wide Based Gait PT-OP-H Neuro Start: 08/15/20 18:47 Freq: Status: Active Protocol: Document 08/18/20 12:48 LRN (Rec: 08/18/20 17:00 LRN [id number]) Sensation Evaluation Gross Sensation Sensation Description Hyperesthesia PT-OP-J Posture/Palpation/Skin Start: 08/15/20 18:47 Freq: Status: Active Protocol: Document 08/18/20 12:48 LRN (Rec: 08/18/20 17:00 LRN [id number]) Posture Evaluation Position Standing Head/C-Spine Posture Forward Head T-Spine Posture Flattened L-Spine Posture Flattened Shoulder Posture (L) Elevated Weight Distribution Decreased Wt.Bear on (R) Comments Posture Comments Extremely wide stance. PT-OP-K Range of Motion Start: 08/15/20 18:47 Freq: Status: Active Protocol: Document 08/18/20 12:48 LRN (Rec: 08/18/20 17:00 LRN [id number]) Lumbar Spine Range of Motion Lumbar Spine Active Degrees Testing Position Standing Flexion 65 Extension 15 Lateral Flexion Left 13 Lateral Flexion Right 10 ROM Limitations Soft Tissue Tightness,Pain Comments Rotation ~ 10 deg's bilaterally PT-OP-M Strength Start: 08/15/20 18:47 Freq: Status: Active Protocol: Document 08/18/20 12:48 LRN (Rec: 08/18/20 17:00 LRN [id number]) Trunk Strength Trunk Manual Muscle Testing Testing Position Sitting Flexion 2 Poor Lateral Flexion Left 3+ Fair+ Lateral Flexion Right 3+ Fair+ Core Stabilization Deferred resisted MMT due to recent surgery. Pt strength assessed per functional mobility. Pt was able to maintain core stability with MMT of hip flexors in supine. Hip Strength Hip Manual Muscle Testing Right Flexion (L2) 5 Normal Abduction 5 Normal Adduction 2+ Poor+ Left Flexion (L2) 5 Normal Abduction 5 Normal Adduction 2+ Poor+ PT-OP-Q Treatments Start: 08/15/20 18:47 Freq: Status: Active Protocol: Document 09/04/20 08:13 SP (Rec: 09/04/20 09:23 SP [id number]) Cardio Equipment Treadmill Duration (Minutes) 6 Speed 2.0 Incline 0 Other 2.1 miles Gym Equipment Shuttle Recovery bilateral squat Details Good TA and hip facilitation Resistance 50#>62# Shuttle Recovery Platform Stable Reps/Time x15 each resistance Therapeutic Exercises Supine Exercises hip IR/ ER stretch Side bilateral Reps/Minutes 3x30 sec each supine clamshell Side bilateral Resistance TB #3 (GTB) Equipment Used supine on plinth w/ wedge no extra pillows Reps/Minutes x30 Comments cued slow motion with good TA facilitation core heel slide Supine Exercise Name single leg alternating LE Side bilateral Resistance AROM able do full range Equipment Used supine on plinth w/ wedge no extra pillows Reps/Minutes 2x15 Comments cued slow small range TA tightening Supine Exercise Name TA tightening (knees bent, elbows slight bent)FF OH Resistance 8# DB Equipment Used supine on plinth w/ wedge only Reps/Minutes x10 Comments improved lower TA facilitation Sidelying Exercises clamshell Side bilateral Resistance AROM> RTB (#1 loop home) Reps/Minutes x10 each Comments cued slow TA facilitation not full ROM, con/ eccentric Standing Exercises trunk flexion Standing Exercise Name segmental trunk flexion w/ TA return stand Reps/Minutes x8 Comments occasional cue for slow TA awareness return standing resisted row Standing Exercise Name reviewed HEP Side bilateral Resistance TB #2 Reps/Minutes x10 Comments cue x1 for scapular stab, tall posture, TA facil- good self corrections shld ext Standing Exercise Name reviewed HEP Side bilateral Resistance tb #2 Reps/Minutes x10 Comments cue x1 for scapular stab, tall posture, TA facil- good self corrections core wall slide Standing Exercise Name Head near wall, shld, pelvis/ back to wall Resistance AROM approx 70 deg hip flexion Reps/Minutes 15 reps Comments cued Lower TS toward wall Self-Care/Home Management Treatment Education Patient Education Home Exercise Program Other Education Provided resistance to side clam and TA OH raise with good TA engagement and no stress on abdominals, continue supine on wedge at this time. Initiated segmental trunk flexion back towall for elongation of LB musculature and TA facilitation return with good response to all exercises today. PT-OP-T Assessment and Plan Start: 08/15/20 18:47 Freq: Status: Active Protocol: Document 09/04/20 08:13 SP (Rec: 09/04/20 09:23 SP [id number]) Physical Therapy Assessment Goals Four Impairment Pt is under UE lifting restrictions Short Term Goal (STG) Pt will be able to perform active UE movements to simulate motions of cutting of wood and working on a boat. 09/04/20: improved TA facilitation supine over head raise, pain free 09/04/20: progressing- pt stated is able to utilize chain saw to cut his wood in front with no resistance or pain with ok by physician when discussed at follow up appt. 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 09/04/20: Pt stated using chain saw is fine and using straight in front no pain and able stabilize. LTG Duration 11/16/20 Three Impairment Decreased tolerance to exercise. Short Term Goal (STG) Pt will be able to perform a TA contraction and hold it during transfers and functional activities. 09/01/20: progressing: continue to requiring log roll onto side and core facilitation for transition to sitting. 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 09/04/20: progressing, son is helping with the lifting but able to use chain saw with no pain. LB so stationary standing still seems to be uncomfortable >5 min then needs to sit, not able to use elliptical. LTG Duration 11/16/20 Two Impairment Poor abdominal/core stabilization Short Term Goal (STG) Pt will be able to demonstrate proper body mechanics for functional activities. (09/04/20: Pt demonstrates TA tightening prior to transfer sit<>supine and still use of UE support and better when performs slower). 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 09/01/20: pt states is able to walk 1/4 mile in neighborhood with little LB soreness that rest after resolves it. LTG Duration 11/16/20 One Impairment Pt lacks appropriate self care HEP Short Term Goal (STG) Pt will be independent with a self care HEP of ROM exercises . STG Duration 10/03/20 Computer Engineering Professor Goal (LTG) Pt will be independent with a self care HEP of continued strengthening exercises. (09/04/20: TA tightening in sup & hands/knees up to 15 reps, improved chest breathing, TA heel slide, DKFO w/ #4 TB, wall slide, self massage racq ball wall PRN, Hamstring/hip stretch elevated supine w/ strap or sit, shld ext and rows TB, sidelying clam shell #1, trunk flexion back to wall TA return). LTG Duration 11/16/20 (09/01/20: Progressing) Progress Towards Goals Progress Towards Goals Progressing Toward Goals Progress Comments Pt demonstrating improved TA engagement with allowance of increased resistance today with no adverse tenson on abdominals. Assessment Summary Assessment Pt feels is progressing, good TA facilitation throughout tx and ability to incorporate standing activity exercise break down for safety and proper mechanics. Physical Therapy Plan Frequency and Duration Frequency of Treatment 2x/Week Plan of Care Start Date 08/18/20 Plan of Care End Date 11/16/20 Therapeutic Interventions Therapeutic Interventions Home Exercise Program,Joint Mobilizations,Manual Therapy, Neuromuscular Re-education, Patient/Caregiver Education, Self-Care/Home Management,Soft Tissue Mobilization,Taping, Therapeutic Activities, Therapeutic Exercises Modalities Cold Pack/Ice Massage,Electric Stimulation,Hot Packs, Traction- Mechanical, Ultrasound Next Visit Focus/Plan Next Note Type Treatment Note Next Visit Plan Assess response to core HEP review, initiated trunk flexion AROM with good TA return. Next tx Gait assessment and training. Core stabilization exercises as pt is able to tolerate with caution of MESH in abdomen. Continue progress UE strengthening and body mechanics training with 30# max lifting restrictions. Start endurance ex of TM with focus on core stabilization, and hip/strengthening including functional movements such as squats. Maximize lower abdominal strengthening.
--- NOTE | 2020-09-08 10:13 | PT-OP ANOTE ---
Per phone conversation pt states he forgot appointment. Pt was informed of his next visit day and time.
--- NOTE | 2020-09-11 16:15 | PT.OTN ---
Current Diagnoses Stiffness of right hip, not elsewhere classified (09/11/20) Radiculopathy, lumbar region (09/11/20) Muscle weakness (generalized) (09/11/20) Physical Therapy Treatment Note PT-OP-A Visit Information Start: 08/15/20 18:47 Freq: Status: Active Protocol: Document 09/11/20 09:54 LRN (Rec: 09/11/20 11:17 LRN [id number]) Out-Patient Physical Therapy Visit Information Visit Information Visit Type Treatment Note Visit Start Time 09:54 Visit Stop Time 10:55 Total Visit Minutes 61 Visit Number 7 Evaluation Information Evaluation Date 08/18/20 Precautions Precautions 30# lifting restriction. Pt reported abdominal MESH surgery x 3 with no rectus abdominus muscle present. 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 PT-OP-B Current Condition Start: 08/15/20 18:47 Freq: Status: Active Protocol: Document 08/18/20 12:48 LRN (Rec: 08/18/20 17:00 LRN [id number]) Current Condition History of Current Condition Onset Date ~07/07/20 Current Complaints Low back pain and down legs with walking. Buttock pain at night. History of Current Condition Back and low back pain for years and something set off the blown L1 disc. Told spinal column fluid may leak. States his back surgery was to put a tube in his back and clean out spinal column on , and he is now almost healed. States he was in wheelchair for 10 days due to blown L1 disc and lost use of legs. States he is now walking 1/2 mile for exercise with muscle pain in his back after walking. He is currently restricted in lifting, squatting: no more than 10# (gal of milk) for another 2 weeks. Ready to get back exercising on his eliptical. Has been off hydrocodone and tylenol for 4 days, taking Gabapentin for neck pain. PMH: R TKA - 2019, Abdominal surgery x 4 (last year ~1998, ~2001, ~2002, ~2003), controlled HBP. Prior Treatments and Tests Neck rehabilitation several years ago. X-ray (07/09/20): Grade II L5-S1 isthmic spondylolisthesis; multilevel DDD (T12 through S1 discs of moderate disc bulge except L5- S1 mild disc bulge); multilevel facte arthropathy; L1-L2 disc extrusion causing severe central canal stenosis and compression of the traversing nerve roots of the cauda equina; and Severe bilateral L5-S1 neural foraminal narrowing with compression of the exiting bilateral L5 nerve roots, Moderate to severe left L4-L5 neural foraminal narrowing with slight compression of the exiting left L4 nerve root. Future Testing and Treatments Planned Next surgeon MD visit is in 2 weeks. Will also see Dr. Townsend for surgery f/u and medications review (Gabapentin). Developmental History Developmental History Hx of neck pain that he just deals with. Pt reports Hernia abdominal repair with 2 mesh surgeries that failed. Last surgery placed a mesh across his abdomen horizontally. Can't do sit ups, but can tense abdomen. 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 Has medicine ball and wants to be able to stretch out. Takes Tylenol to sleep through the night. Functional Limitations- Mobility/Gait Walking 1/2 mile daily. Functional Limitations- Recreation/ See below Hobbies Functional Limitations- Other Restricted from activities for 6 wks post op on 07/21/20 (in 2 more weeks, 09/02/20). 10# lifting restriction, Restricted from squatting. Personal Factors Other Personal Factors That May Effect Has cervical stenosis with Therapy/Recovery occasional numbness in both hands, worse on R side. PT-OP-C Subjective Start: 08/15/20 18:47 Freq: Status: Active Protocol: Document 09/11/20 09:54 LRN (Rec: 09/11/20 11:17 LRN [id number]) OP-PT Subjective Patient Comments Patient Comments No more Sciatica in R LEG. 80 % better, as far as recovery from back surgey is concerned, it is coming along good. Seeing chiropractor 1x/week. Reports burning pain in abdomen due to MESH when doing TA in only sidelie. PT-OP-G Mobility & Gait Start: 08/15/20 18:47 Freq: Status: Active Protocol: Document 08/18/20 12:48 LRN (Rec: 08/18/20 17:00 LRN [id number]) OP Mobility Evaluation Bed Mobility Rolling Independent with no TA tightening evident Supine to and from Sit Log roll technique with no TA tightening evident OP Gait Assessment Gait Gait Assistance Required: Independent Able to Maintain Weight Bearing Status Yes During Gait Assistive Devices Assistive Device None Gait Deviations General Gait Pattern Lateral Trunk Lean,Wide Based Gait PT-OP-H Neuro Start: 08/15/20 18:47 Freq: Status: Active Protocol: Document 08/18/20 12:48 LRN (Rec: 08/18/20 17:00 LRN [id number]) Sensation Evaluation Gross Sensation Sensation Description Hyperesthesia PT-OP-J Posture/Palpation/Skin Start: 08/15/20 18:47 Freq: Status: Active Protocol: Document 08/18/20 12:48 LRN (Rec: 08/18/20 17:00 LRN [id number]) Posture Evaluation Position Standing Head/C-Spine Posture Forward Head T-Spine Posture Flattened L-Spine Posture Flattened Shoulder Posture (L) Elevated Weight Distribution Decreased Wt.Bear on (R) Comments Posture Comments Extremely wide stance. PT-OP-K Range of Motion Start: 08/15/20 18:47 Freq: Status: Active Protocol: Document 08/18/20 12:48 LRN (Rec: 08/18/20 17:00 LRN [id number]) Lumbar Spine Range of Motion Lumbar Spine Active Degrees Testing Position Standing Flexion 65 Extension 15 Lateral Flexion Left 13 Lateral Flexion Right 10 ROM Limitations Soft Tissue Tightness,Pain Comments Rotation ~ 10 deg's bilaterally PT-OP-M Strength Start: 08/15/20 18:47 Freq: Status: Active Protocol: Document 08/18/20 12:48 LRN (Rec: 08/18/20 17:00 LRN [id number]) Trunk Strength Trunk Manual Muscle Testing Testing Position Sitting Flexion 2 Poor Lateral Flexion Left 3+ Fair+ Lateral Flexion Right 3+ Fair+ Core Stabilization Deferred resisted MMT due to recent surgery. Pt strength assessed per functional mobility. Pt was able to maintain core stability with MMT of hip flexors in supine. Hip Strength Hip Manual Muscle Testing Right Flexion (L2) 5 Normal Abduction 5 Normal Adduction 2+ Poor+ Left Flexion (L2) 5 Normal Abduction 5 Normal Adduction 2+ Poor+ PT-OP-Q Treatments Start: 08/15/20 18:47 Freq: Status: Active Protocol: Document 09/11/20 09:54 LRN (Rec: 09/11/20 11:17 LRN [id number]) Cardio Equipment Treadmill Duration (Minutes) 6 Speed 2.0 Incline 0 Other Focus on TA tightening. 2.1 miles Therapeutic Exercises Sidelying Exercises TA tightening Sidelying Exercise Name TA tighening w/chest breathing Side bilateral Reps/Minutes 13' Comments Focus on chest breathing, extra time same as in sitting Sitting Exercises TA tightening w/chest breathing Sitting Exercise Name TA tightening w/chest breathing Reps/Minutes 10' Comments Much cuing and resting throughout ex Standing Exercises Active PF Standing Exercise Name Active PF (feet neutral & Everted) Reps/Minutes 30x each Therapeutic Activity Therapeutic Activity Rolling side to side Name Rolling Reps/Minutes 2' Sit <> Supine Name Sit <> Supine Reps/Minutes 9' Sit <> Stand Name Sit to Stand Reps/Minutes 6' Gait Training Gait Activity L SB with hip flexion/swing through Description ........... Correcting LLE excessive AB Description ......... L Toe off Description ............... Self-Care/Home Management Treatment Education Patient Education Home Exercise Program Other Education Educated pt in proper transfers. Activities Self-Care/Home Management Activities Issued & reviewed HEP: Ankle PF (neutral & in EV). Extra time for HEP due to pt having questions and requesting in writing other self care activities to be issued/ documented, unable to find pictures; therefore ex's written on handout given. PT-OP-T Assessment and Plan Start: 08/15/20 18:47 Freq: Status: Active Protocol: Document 09/11/20 09:54 LRN (Rec: 09/11/20 11:17 LRN [id number]) Physical Therapy Assessment Goals Four Impairment Pt is under UE lifting restrictions Short Term Goal (STG) Pt will be able to perform active UE movements to simulate motions of cutting of wood and working on a boat. 09/04/20: improved TA facilitation supine over head raise, pain free 09/04/20: progressing- pt stated is able to utilize chain saw to cut his wood in front with no resistance or pain with ok by physician when discussed at follow up appt. 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 09/04/20: Pt stated using chain saw is fine and using straight in front no pain and able stabilize. LTG Duration 11/16/20 Three Impairment Decreased tolerance to exercise. Short Term Goal (STG) Pt will be able to perform a TA contraction and hold it during transfers and functional activities. 09/01/20: progressing: continue to requiring log roll onto side and core facilitation for transition to sitting. 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 09/04/20: progressing, son is helping with the lifting but able to use chain saw with no pain. LB so stationary standing still seems to be uncomfortable >5 min then needs to sit, not able to use elliptical. (09/11/20: Doing 5' on eliptical). LTG Duration 11/16/20 Two Impairment Poor abdominal/core stabilization Short Term Goal (STG) Pt will be able to demonstrate proper body mechanics for functional activities. (09/11/20: Pt demonstrates TA tightening prior to transfer sit<>supine, but not during transfer. Uses UE support except with sit <> stand). 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 (09/11/20: Working on property has LBP on upper hips rated 2 /10, no leg pain, has numbness in L inner thigh/knee. Previously on 09/01/20: pt able to walk 1/4 mile in neighborhood with little LB soreness that resolves with rest). LTG Duration 11/16/20 (09/11/20: Progressing) One Impairment Pt lacks appropriate self care HEP Short Term Goal (STG) Pt will be independent with a self care HEP of ROM exercises . (09/11/20: Hip AD and hamstring stretches reviewed) STG Duration 10/03/20 (09/11/20: Progressed) Programming Intern Goal (LTG) Pt will be independent with a self care HEP of continued strengthening exercises. (09/04/20: TA tightening in sup & hands/knees up to 15 reps, improved chest breathing, TA heel slide, DKFO w/ #4 TB, wall slide, self massage racq ball wall PRN, Hamstring/hip stretch elevated supine w/ strap or sit, shld ext and rows TB, sidelying clam shell #1, trunk flexion back to wall TA return). 09/11/20: Added ankle PF strengthening. LTG Duration 11/16/20 (09/11/20: Progressing) Progress Towards Goals Progress Comments Goal #2: Abdomen and core stabilization progressed. Transfers improved after training with pt able to hold TA with sit<>supine by end of session. Goal #1: Progressed HEP. Assessment Summary Assessment + response to core and LE strengthening. Pt now able to transfer stand from sitting without use of hands; LE strength and transfer mechanics is improving; therefore function improving. Pt is not yet automatic with TA tightening with transfers and was not transferring correctly to start. Physical Therapy Plan Frequency and Duration Frequency of Treatment 2x/Week Plan of Care Start Date 08/18/20 Plan of Care End Date 11/16/20 Next Visit Focus/Plan Next Note Type Treatment Note Next Visit Plan Pt to work on chest breathhing /holding TA in sidelie, and being able to hold TA throughout transfers. Review trunk flexion AROM with good TA return. Add ankle DF stretch. Focus on core abdominal holding ability/ strength. Pt would like full body HEP at end of therapy, discussion needed. Gait training for L toe off ( strengthen ankle EV) with neutral positioning of foot/LE , core stability (preventing L SB on L swing though, and assess for over involvement of L hip flexor causing trunk sway. Core stabilization exercises as pt is able to tolerate with caution of MESH in abdomen. Continue progress UE strengthening and body mechanics training with 30# max lifting restrictions. Endurance ex of TM with focus on core stabilization, gait training and hip/strengthening including functional movements such as squats. Maximize lower abdominal strengthening, especially LLE.
--- NOTE | 2020-09-15 10:48 | PT.OTN ---
Current Diagnoses Stiffness of right hip, not elsewhere classified (09/15/20) Radiculopathy, lumbar region (09/15/20) Muscle weakness (generalized) (09/15/20) Physical Therapy Treatment Note PT-OP-A Visit Information Start: 08/15/20 18:47 Freq: Status: Active Protocol: Document 09/15/20 09:50 SP (Rec: 09/15/20 11:20 SP [id number]) Out-Patient Physical Therapy Visit Information Visit Information Visit Type Treatment Note Visit Start Time 09:50 Visit Stop Time 10:48 Total Visit Minutes 58 Visit Number 8 Number of MOLD CARPENTER Visits 1 Evaluation Information Evaluation Date 08/18/20 Precautions Precautions 30# lifting restriction. Pt reported abdominal MESH surgery x 3 with no rectus abdominus muscle present. 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 PT-OP-B Current Condition Start: 08/15/20 18:47 Freq: Status: Active Protocol: Document 08/18/20 12:48 LRN (Rec: 08/18/20 17:00 LRN [id number]) Current Condition History of Current Condition Onset Date ~07/07/20 Current Complaints Low back pain and down legs with walking. Buttock pain at night. History of Current Condition Back and low back pain for years and something set off the blown L1 disc. Told spinal column fluid may leak. States his back surgery was to put a tube in his back and clean out spinal column on , and he is now almost healed. States he was in wheelchair for 10 days due to blown L1 disc and lost use of legs. States he is now walking 1/2 mile for exercise with muscle pain in his back after walking. He is currently restricted in lifting, squatting: no more than 10# (gal of milk) for another 2 weeks. Ready to get back exercising on his eliptical. Has been off hydrocodone and tylenol for 4 days, taking Gabapentin for neck pain. PMH: R TKA - 2019, Abdominal surgery x 4 (last year ~1998, ~2001, ~2002, ~2003), controlled HBP. Prior Treatments and Tests Neck rehabilitation several years ago. X-ray (07/09/20): Grade II L5-S1 isthmic spondylolisthesis; multilevel DDD (T12 through S1 discs of moderate disc bulge except L5- S1 mild disc bulge); multilevel facte arthropathy; L1-L2 disc extrusion causing severe central canal stenosis and compression of the traversing nerve roots of the cauda equina; and Severe bilateral L5-S1 neural foraminal narrowing with compression of the exiting bilateral L5 nerve roots, Moderate to severe left L4-L5 neural foraminal narrowing with slight compression of the exiting left L4 nerve root. Future Testing and Treatments Planned Next surgeon MD visit is in 2 weeks. Will also see Dr. Townsend for surgery f/u and medications review (Gabapentin). Developmental History Developmental History Hx of neck pain that he just deals with. Pt reports Hernia abdominal repair with 2 mesh surgeries that failed. Last surgery placed a mesh across his abdomen horizontally. Can't do sit ups, but can tense abdomen. 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 Has medicine ball and wants to be able to stretch out. Takes Tylenol to sleep through the night. Functional Limitations- Mobility/Gait Walking 1/2 mile daily. Functional Limitations- Recreation/ See below Hobbies Functional Limitations- Other Restricted from activities for 6 wks post op on 07/21/20 (in 2 more weeks, 09/02/20). 10# lifting restriction, Restricted from squatting. Personal Factors Other Personal Factors That May Effect Has cervical stenosis with Therapy/Recovery occasional numbness in both hands, worse on R side. PT-OP-C Subjective Start: 08/15/20 18:47 Freq: Status: Active Protocol: Document 09/15/20 09:50 SP (Rec: 09/15/20 11:20 SP [id number]) OP-PT Subjective Patient Comments Patient Comments Still gets the numbness over L medial thigh pubic bone to knee. Pt states feels isn't able to keep his TA engaged as well and long as use to. He feels more pressure out front against mesh during walking, exercises and not able take as deep a breath during exercises as use to. PT-OP-G Mobility & Gait Start: 08/15/20 18:47 Freq: Status: Active Protocol: Document 08/18/20 12:48 LRN (Rec: 08/18/20 17:00 LRN [id number]) OP Mobility Evaluation Bed Mobility Rolling Independent with no TA tightening evident Supine to and from Sit Log roll technique with no TA tightening evident OP Gait Assessment Gait Gait Assistance Required: Independent Able to Maintain Weight Bearing Status Yes During Gait Assistive Devices Assistive Device None Gait Deviations General Gait Pattern Lateral Trunk Lean,Wide Based Gait PT-OP-H Neuro Start: 08/15/20 18:47 Freq: Status: Active Protocol: Document 08/18/20 12:48 LRN (Rec: 08/18/20 17:00 LRN [id number]) Sensation Evaluation Gross Sensation Sensation Description Hyperesthesia PT-OP-J Posture/Palpation/Skin Start: 08/15/20 18:47 Freq: Status: Active Protocol: Document 08/18/20 12:48 LRN (Rec: 08/18/20 17:00 LRN [id number]) Posture Evaluation Position Standing Head/C-Spine Posture Forward Head T-Spine Posture Flattened L-Spine Posture Flattened Shoulder Posture (L) Elevated Weight Distribution Decreased Wt.Bear on (R) Comments Posture Comments Extremely wide stance. PT-OP-K Range of Motion Start: 08/15/20 18:47 Freq: Status: Active Protocol: Document 08/18/20 12:48 LRN (Rec: 08/18/20 17:00 LRN [id number]) Lumbar Spine Range of Motion Lumbar Spine Active Degrees Testing Position Standing Flexion 65 Extension 15 Lateral Flexion Left 13 Lateral Flexion Right 10 ROM Limitations Soft Tissue Tightness,Pain Comments Rotation ~ 10 deg's bilaterally PT-OP-M Strength Start: 08/15/20 18:47 Freq: Status: Active Protocol: Document 08/18/20 12:48 LRN (Rec: 08/18/20 17:00 LRN [id number]) Trunk Strength Trunk Manual Muscle Testing Testing Position Sitting Flexion 2 Poor Lateral Flexion Left 3+ Fair+ Lateral Flexion Right 3+ Fair+ Core Stabilization Deferred resisted MMT due to recent surgery. Pt strength assessed per functional mobility. Pt was able to maintain core stability with MMT of hip flexors in supine. Hip Strength Hip Manual Muscle Testing Right Flexion (L2) 5 Normal Abduction 5 Normal Adduction 2+ Poor+ Left Flexion (L2) 5 Normal Abduction 5 Normal Adduction 2+ Poor+ PT-OP-Q Treatments Start: 08/15/20 18:47 Freq: Status: Active Protocol: Document 09/15/20 09:50 SP (Rec: 09/15/20 11:20 SP [id number]) Cardio Equipment Elliptical Duration (Minutes) 3 Resistance 5 Other 3 min 28 sec: Rail use for upper trunk mobility w/ = wt dis Treadmill Duration (Minutes) 6 Speed 2.2 Incline 0 Other Focus on TA tightening. 0.21 miles Therapeutic Exercises Supine Exercises core heel slide Supine Exercise Name single leg alternating LE Side bilateral Resistance AROM able do full range Equipment Used supine on plinth w/ wedge no extra pillows Reps/Minutes 2x15 Comments continued instruction: slow small range Chest Breathing Supine Exercise Name Chest breathing training w/ manual stim at chest Side bilateral Equipment Used inclined wedge Comments Cuing to improve chest excursion generally L better than R. TA tightening Supine Exercise Name TA tightening (knees bent, elbows slight bent)FF OH Resistance AROM small range Equipment Used supine on plinth w/ wedge only Reps/Minutes 8 Comments improved lower TA facilitation Standing Exercises sit to stands Standing Exercise Name Initiated hip eccentric sit<> stand arms across chest Resistance AROM Reps/Minutes x10 Comments good posture and TA facilitation, cued knees with/ behind toes Active PF Standing Exercise Name Active PF (feet neutral & Everted/medial calcaneus elevated) Side bilateral Reps/Minutes 30x each Comments cued upright posture core wall slide Standing Exercise Name discontinue due to L lateral knee clicking pain Manual Therapy Treatment Taping K tape abdominals Body Location X Treatment Focus self feedback TA with activities. Type of Tape Kinesio Tape Skin Inspection intact, normal color Comments Noted TA support leaving. Self-Care/Home Management Treatment Education Patient Education Home Exercise Program Other Education Continued TA facilitation for proper transfers. Iniated sit<>stands to replace wall slides for HEP. Initated elliptical to assess form/ response has at home but low endurance. PT-OP-T Assessment and Plan Start: 08/15/20 18:47 Freq: Status: Active Protocol: Document 09/15/20 09:50 SP (Rec: 09/15/20 11:20 SP [id number]) Physical Therapy Assessment Goals Four Impairment Pt is under UE lifting restrictions Short Term Goal (STG) Pt will be able to perform active UE movements to simulate motions of cutting of wood and working on a boat. 09/04/20: improved TA facilitation supine over head raise, pain free 09/04/20: progressing- pt stated is able to utilize chain saw to cut his wood in front with no resistance or pain with ok by physician when discussed at follow up appt. 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 09/04/20: Pt stated using chain saw is fine and using straight in front no pain and able stabilize. LTG Duration 11/16/20 Three Impairment Decreased tolerance to exercise. Short Term Goal (STG) Pt will be able to perform a TA contraction and hold it during transfers and functional activities. 09/15/20: progressing: continue to requiring log roll onto side and core facilitation for transition to sitting, cued slow pacing for increase sustained support. 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 09/04/20: progressing, son is helping with the lifting but able to use chain saw with no pain. LB so stationary standing still seems to be uncomfortable >5 min then needs to sit, not able to use elliptical. (09/11/20: Doing 5' on eliptical). LTG Duration 11/16/20 Two Impairment Poor abdominal/core stabilization Short Term Goal (STG) Pt will be able to demonstrate proper body mechanics for functional activities. (09/15/20: Pt demonstrates TA tightening prior to transfer sit<>supine, challenging sustaining engagement during transfer. Uses UE support except with sit <> stand). 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 (09/11/20: Working on property has LBP on upper hips rated 2 /10, no leg pain, has numbness in L inner thigh/knee. Previously on 09/01/20: pt able to walk 1/4 mile in neighborhood with little LB soreness that resolves with rest). LTG Duration 11/16/20 (09/11/20: Progressing) One Impairment Pt lacks appropriate self care HEP Short Term Goal (STG) Pt will be independent with a self care HEP of ROM exercises . (09/15/20: core heel slide, core OH FF mod range, TA supine/sidelying clamshell, changed wallslides to sit<> stands today) STG Duration 10/03/20 (09/11/20: Progressed) Management Trainee Program Stores Goal (LTG) Pt will be independent with a self care HEP of continued strengthening exercises. (09/04/20: TA tightening in sup & hands/knees up to 15 reps, improved chest breathing, TA heel slide, DKFO w/ #4 TB, wall slide, self massage racq ball wall PRN, Hamstring/hip stretch elevated supine w/ strap or sit, shld ext and rows TB, sidelying clam shell #1, trunk flexion back to wall TA return). 09/15/20: reviewed ankle PF/ EV strengthening strengthening. LTG Duration 11/16/20 (09/11/20: Progressing) Assessment Summary Assessment Pt challenged but improved TA facilitation during tx. Provided K taping X over abdominals for self feedback assist during ADLs today for TA support and less pressure noticing on mesh lately. Discussed decreased walking speed TM and assessed elliptical (has at home- very low endurnace but no adverse affect/ good form) and allow arm swing during gait to allow decrease tension mesh of abdominals and breath control into chest. Physical Therapy Plan Frequency and Duration Frequency of Treatment 2x/Week Plan of Care Start Date 08/18/20 Plan of Care End Date 11/16/20 Therapeutic Interventions Therapeutic Interventions Home Exercise Program,Joint Mobilizations,Manual Therapy, Neuromuscular Re-education, Patient/Caregiver Education, Self-Care/Home Management,Soft Tissue Mobilization,Taping, Therapeutic Activities, Therapeutic Exercises Modalities Cold Pack/Ice Massage,Electric Stimulation,Hot Packs, Traction- Mechanical, Ultrasound Next Visit Focus/Plan Next Note Type Treatment Note Next Visit Plan Assess response to las tx: TM, Elliptical, supine/ side HEP TA, standing PF/ EV slight lift. Continue PT POC: Pt to work on chest breathhing/holding TA in sidelie, and being able to hold TA throughout transfers. Review trunk flexion AROM with good TA return. Add ankle DF stretch. Focus on core abdominal holding ability/strength. Pt would like full body HEP at end of therapy, discussion needed. Gait training for L toe off ( strengthen ankle EV) with neutral positioning of foot/LE , core stability (preventing L SB on L swing though, and assess for over involvement of L hip flexor causing trunk sway. Core stabilization exercises as pt is able to tolerate with caution of MESH in abdomen. Continue progress UE strengthening and body mechanics training with 30# max lifting restrictions. Endurance ex of TM with focus on core stabilization, gait training and hip/strengthening including functional movements such as squats. Maximize lower abdominal strengthening, especially LLE.
--- NOTE | 2020-09-22 12:40 | PT.OTN ---
Current Diagnoses Stiffness of right hip, not elsewhere classified (09/22/20) Radiculopathy, lumbar region (09/22/20) Muscle weakness (generalized) (09/22/20) Physical Therapy Treatment Note PT-OP-A Visit Information Start: 08/15/20 18:47 Freq: Status: Active Protocol: Document 09/22/20 09:48 LRN (Rec: 09/22/20 10:36 LRN [id number]) Out-Patient Physical Therapy Visit Information Visit Information Visit Type Progress Note Visit Start Time 09:48 Visit Stop Time 10:34 Total Visit Minutes 46 Visit Number 9 Evaluation Information Evaluation Date 08/18/20 Precautions Precautions 30# lifting restriction. Pt reported abdominal MESH surgery x 3 with no rectus abdominus muscle present. 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 PT-OP-B Current Condition Start: 08/15/20 18:47 Freq: Status: Active Protocol: Document 08/18/20 12:48 LRN (Rec: 08/18/20 17:00 LRN [id number]) Current Condition History of Current Condition Onset Date ~07/07/20 Current Complaints Low back pain and down legs with walking. Buttock pain at night. History of Current Condition Back and low back pain for years and something set off the blown L1 disc. Told spinal column fluid may leak. States his back surgery was to put a tube in his back and clean out spinal column on , and he is now almost healed. States he was in wheelchair for 10 days due to blown L1 disc and lost use of legs. States he is now walking 1/2 mile for exercise with muscle pain in his back after walking. He is currently restricted in lifting, squatting: no more than 10# (gal of milk) for another 2 weeks. Ready to get back exercising on his eliptical. Has been off hydrocodone and tylenol for 4 days, taking Gabapentin for neck pain. PMH: R TKA - 2019, Abdominal surgery x 4 (last year ~1998, ~2001, ~2002, ~2003), controlled HBP. Prior Treatments and Tests Neck rehabilitation several years ago. X-ray (07/09/20): Grade II L5-S1 isthmic spondylolisthesis; multilevel DDD (T12 through S1 discs of moderate disc bulge except L5- S1 mild disc bulge); multilevel facte arthropathy; L1-L2 disc extrusion causing severe central canal stenosis and compression of the traversing nerve roots of the cauda equina; and Severe bilateral L5-S1 neural foraminal narrowing with compression of the exiting bilateral L5 nerve roots, Moderate to severe left L4-L5 neural foraminal narrowing with slight compression of the exiting left L4 nerve root. Future Testing and Treatments Planned Next surgeon MD visit is in 2 weeks. Will also see Dr. Townsend for surgery f/u and medications review (Gabapentin). Developmental History Developmental History Hx of neck pain that he just deals with. Pt reports Hernia abdominal repair with 2 mesh surgeries that failed. Last surgery placed a mesh across his abdomen horizontally. Can't do sit ups, but can tense abdomen. 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 Has medicine ball and wants to be able to stretch out. Takes Tylenol to sleep through the night. Functional Limitations- Mobility/Gait Walking 1/2 mile daily. Functional Limitations- Recreation/ See below Hobbies Functional Limitations- Other Restricted from activities for 6 wks post op on 07/21/20 (in 2 more weeks, 09/02/20). 10# lifting restriction, Restricted from squatting. Personal Factors Other Personal Factors That May Effect Has cervical stenosis with Therapy/Recovery occasional numbness in both hands, worse on R side. PT-OP-C Subjective Start: 08/15/20 18:47 Freq: Status: Active Protocol: Document 09/22/20 09:48 LRN (Rec: 09/22/20 10:36 LRN [id number]) OP-PT Subjective Patient Comments Patient Comments Thinks maybe he is able to tighten his TA a little more. Went out on boat 5 days ago and had back pain that night and the next morning, but feels better now. States he is allowed to lift up to 30# and he can do all his chores with caution. PT-OP-G Mobility & Gait Start: 08/15/20 18:47 Freq: Status: Active Protocol: Document 08/18/20 12:48 LRN (Rec: 08/18/20 17:00 LRN [id number]) OP Mobility Evaluation Bed Mobility Rolling Independent with no TA tightening evident Supine to and from Sit Log roll technique with no TA tightening evident OP Gait Assessment Gait Gait Assistance Required: Independent Able to Maintain Weight Bearing Status Yes During Gait Assistive Devices Assistive Device None Gait Deviations General Gait Pattern Lateral Trunk Lean,Wide Based Gait PT-OP-H Neuro Start: 08/15/20 18:47 Freq: Status: Active Protocol: Document 08/18/20 12:48 LRN (Rec: 08/18/20 17:00 LRN [id number]) Sensation Evaluation Gross Sensation Sensation Description Hyperesthesia PT-OP-J Posture/Palpation/Skin Start: 08/15/20 18:47 Freq: Status: Active Protocol: Document 08/18/20 12:48 LRN (Rec: 08/18/20 17:00 LRN [id number]) Posture Evaluation Position Standing Head/C-Spine Posture Forward Head T-Spine Posture Flattened L-Spine Posture Flattened Shoulder Posture (L) Elevated Weight Distribution Decreased Wt.Bear on (R) Comments Posture Comments Extremely wide stance. PT-OP-K Range of Motion Start: 08/15/20 18:47 Freq: Status: Active Protocol: Document 08/18/20 12:48 LRN (Rec: 08/18/20 17:00 LRN [id number]) Lumbar Spine Range of Motion Lumbar Spine Active Degrees Testing Position Standing Flexion 65 Extension 15 Lateral Flexion Left 13 Lateral Flexion Right 10 ROM Limitations Soft Tissue Tightness,Pain Comments Rotation ~ 10 deg's bilaterally PT-OP-M Strength Start: 08/15/20 18:47 Freq: Status: Active Protocol: Document 08/18/20 12:48 LRN (Rec: 08/18/20 17:00 LRN [id number]) Trunk Strength Trunk Manual Muscle Testing Testing Position Sitting Flexion 2 Poor Lateral Flexion Left 3+ Fair+ Lateral Flexion Right 3+ Fair+ Core Stabilization Deferred resisted MMT due to recent surgery. Pt strength assessed per functional mobility. Pt was able to maintain core stability with MMT of hip flexors in supine. Hip Strength Hip Manual Muscle Testing Right Flexion (L2) 5 Normal Abduction 5 Normal Adduction 2+ Poor+ Left Flexion (L2) 5 Normal Abduction 5 Normal Adduction 2+ Poor+ PT-OP-Q Treatments Start: 08/15/20 18:47 Freq: Status: Active Protocol: Document 09/22/20 09:48 LRN (Rec: 09/22/20 10:36 [facility] [id number]) Cardio Equipment Elliptical Duration (Minutes) 3 Resistance 5 Other Pt SOB and was educated in need to reduce intensity. Treadmill Duration (Minutes) 6 Speed 2.2 Incline 0 Other Focus on TA tightening. 0.21 miles Therapeutic Exercises Supine Exercises Shoulder Flex Supine Exercise Name Shoulder flex AROM Side bilateral Reps/Minutes 5' hip IR/ ER stretch Supine Exercise Name Hip IR/ER stretch Side bilateral Reps/Minutes 4' core heel slide Supine Exercise Name single leg alternating LE Side bilateral Resistance AROM able do full range Equipment Used supine on plinth w/ wedge no extra pillows Reps/Minutes 2x15 Comments continued instruction: slow small range Chest Breathing Supine Exercise Name Chest breathing training w/ manual stim at chest Side bilateral Equipment Used inclined on pillows Comments Cuing to improve chest excursion generally L better than R. TA tightening Supine Exercise Name TA tightening (knees bent, elbows slight bent)FF OH Resistance AROM small range Equipment Used supine on plinth w/ wedge only Reps/Minutes 8 Comments improved lower TA facilitation Self-Care/Home Management Treatment Education Other Education Discussed goals and plan of care, pt agreeable to 2-3 more visits to be placed on an independent HEP. PT-OP-T Assessment and Plan Start: 08/15/20 18:47 Freq: Status: Active Protocol: Document 09/22/20 09:48 LRN (Rec: 09/22/20 10:36 N [id number]) Physical Therapy Assessment Rehab Potential Rehabilitation Potential Excellent Evaluation Complexity Number of Personal Factors/Comorbidities 1-2 Number of Body Systems Impaired 4 or More Clinical Presentation at Evaluation Evolving Impairments Impairments Activity Tolerance,Functional Activities,ROM,Strength, Transfers Goals Four Impairment Pt is under UE lifting restrictions Short Term Goal (STG) Pt will be able to perform active UE movements to simulate motions of cutting of wood and working on a boat. 09/04/20: improved TA facilitation supine over head raise, pain free 09/04/20: progressing- pt stated is able to utilize chain saw to cut his wood in front with no resistance or pain with ok by physician when discussed at follow up appt. 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 (09/22/20: Wears back brace and doesn't have back or LE pain .) LTG Duration 11/16/20 (09/22/20: MET GOAL) Three Impairment Decreased tolerance to exercise. Short Term Goal (STG) Pt will be able to perform a TA contraction and hold it during transfers and functional activities. 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 (09/22/20: Able to meet all the goals except splitting of wood, whick the pt doesn't plan to work towards achieving ). LTG Duration 11/16/20 (09/22/20: MET GOAL) Two Impairment Poor abdominal/core stabilization Short Term Goal (STG) Pt will be able to demonstrate proper body mechanics for functional activities. (09/15/20: Pt demonstrates TA tightening prior to transfer sit<>supine, challenging sustaining engagement during transfer. Uses UE support except with sit <> stand). 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 (09/11/20: Pt is not mowing lawn or gardening. He is working on property has occasional LBP on upper hips rated 2/10, no leg pain, has numbness in L inner thigh/knee , able to walk 1/4 mile in neighborhood with tightness in the LB). LTG Duration 11/16/20 (09/11/20: MET GOAL) One Impairment Pt lacks appropriate self care HEP Short Term Goal (STG) Pt will be independent with a self care HEP of ROM exercises . (09/15/20: core heel slide, core OH FF mod range, TA supine/sidelying clamshell, changed wallslides to sit<> stands today) STG Duration 10/03/20 (09/11/20: Progressed) Penitentiary Goal (LTG) Pt will be independent with a self care HEP of continued strengthening exercises. (09/04/20: TA tightening in sup & hands/knees up to 15 reps, improved chest breathing, TA heel slide, DKFO w/ #4 TB, wall slide, self massage racq ball wall PRN, Hamstring/hip stretch elevated supine w/ strap or sit, shld ext and rows TB, sidelying clam shell #1, trunk flexion back to wall TA return). 09/15/20: reviewed ankle PF/ EV strengthening strengthening. LTG Duration 11/16/20 (09/11/20: Progressing) Progress Towards Goals Progress Comments Goals 2 & 4: MET. LTG #3: MET. Assessment Summary Assessment Pt has reponded well to physical therapy with improvement in endurance and return to most functional activities at home except for chopping of wood and mowing the lawn. The pt is acceptable to understanding his physical limitations in these areas and is choosing to forgo tyring to do those activities. The pt would like to continue therapy for a few more visits to be placed on an overall HEP of excercises in addition to the low back and core program he is on. I am in agreement and feel the pt also needs education in maximal exercise tolerance. Further therapy to place the pt on a full body home exercise program would be appropriate. The pt responded well to last treatment, but he felt use of K-tape to the abdomen was not helpful. Pt is happy with his progress and he feels the therapy has addressed many issues. Physical Therapy Plan Frequency and Duration Frequency of Treatment 2x/Week Plan of Care Start Date 08/18/20 Plan of Care End Date 11/16/20 Therapeutic Interventions Therapeutic Interventions Home Exercise Program, Neuromuscular Re-education, Patient/Caregiver Education, Self-Care/Home Management,Soft Tissue Mobilization, Therapeutic Activities, Therapeutic Exercises Modalities Cold Pack/Ice Massage,Hot Packs Next Visit Focus/Plan Next Note Type Treatment Note Next Visit Plan Set pt up on HEP in 2 visits and DC to HEP. Add to self care HEP: ankle DF stretch, ankle EV strengthening, & Body mechanics training. For a full body program, HEP to include: trunk AROM w/TA, progressive core strengthening using LE's (LE strengthening) , with caution of MESH in abdomen, ?squats?, general UE strengthening (caution neck pain history). Monitor chest breathing/holding TA in sidelie, and being able to hold TA throughout transfers and with gait: L toe off with neutral positioning of foot/LE , & core stability (preventing L SB on L swing though, and assess for over involvement of L hip flexor causing trunk sway). On TM, focus on core stabilization.
--- NOTE | 2020-09-25 10:30 | PT.OTN ---
Current Diagnoses Stiffness of right hip, not elsewhere classified (09/25/20) Radiculopathy, lumbar region (09/25/20) Muscle weakness (generalized) (09/25/20) Physical Therapy Treatment Note PT-OP-A Visit Information Start: 08/15/20 18:47 Freq: Status: Active Protocol: Document 09/25/20 09:47 SP (Rec: 09/25/20 10:32 SP [id number]) Out-Patient Physical Therapy Visit Information Visit Information Visit Type Treatment Note Visit Start Time 09:47 Visit Stop Time 10:30 Total Visit Minutes 43 Visit Number 10 Number of MUSSEL OPENER Visits 1 Evaluation Information Evaluation Date 08/18/20 Precautions Precautions 30# lifting restriction. Pt reported abdominal MESH surgery x 3 with no rectus abdominus muscle present. 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 PT-OP-B Current Condition Start: 08/15/20 18:47 Freq: Status: Active Protocol: Document 08/18/20 12:48 LRN (Rec: 08/18/20 17:00 LRN [id number]) Current Condition History of Current Condition Onset Date ~07/07/20 Current Complaints Low back pain and down legs with walking. Buttock pain at night. History of Current Condition Back and low back pain for years and something set off the blown L1 disc. Told spinal column fluid may leak. States his back surgery was to put a tube in his back and clean out spinal column on , and he is now almost healed. States he was in wheelchair for 10 days due to blown L1 disc and lost use of legs. States he is now walking 1/2 mile for exercise with muscle pain in his back after walking. He is currently restricted in lifting, squatting: no more than 10# (gal of milk) for another 2 weeks. Ready to get back exercising on his eliptical. Has been off hydrocodone and tylenol for 4 days, taking Gabapentin for neck pain. PMH: R TKA - 2019, Abdominal surgery x 4 (last year ~1998, ~2001, ~2002, ~2003), controlled HBP. Prior Treatments and Tests Neck rehabilitation several years ago. X-ray (07/09/20): Grade II L5-S1 isthmic spondylolisthesis; multilevel DDD (T12 through S1 discs of moderate disc bulge except L5- S1 mild disc bulge); multilevel facte arthropathy; L1-L2 disc extrusion causing severe central canal stenosis and compression of the traversing nerve roots of the cauda equina; and Severe bilateral L5-S1 neural foraminal narrowing with compression of the exiting bilateral L5 nerve roots, Moderate to severe left L4-L5 neural foraminal narrowing with slight compression of the exiting left L4 nerve root. Future Testing and Treatments Planned Next surgeon MD visit is in 2 weeks. Will also see Dr. Townsend for surgery f/u and medications review (Gabapentin). Developmental History Developmental History Hx of neck pain that he just deals with. Pt reports Hernia abdominal repair with 2 mesh surgeries that failed. Last surgery placed a mesh across his abdomen horizontally. Can't do sit ups, but can tense abdomen. 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 Has medicine ball and wants to be able to stretch out. Takes Tylenol to sleep through the night. Functional Limitations- Mobility/Gait Walking 1/2 mile daily. Functional Limitations- Recreation/ See below Hobbies Functional Limitations- Other Restricted from activities for 6 wks post op on 07/21/20 (in 2 more weeks, 09/02/20). 10# lifting restriction, Restricted from squatting. Personal Factors Other Personal Factors That May Effect Has cervical stenosis with Therapy/Recovery occasional numbness in both hands, worse on R side. 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 Want to review doing proper form before DC. Patient Reported Progress Improving PT-OP-G Mobility & Gait Start: 08/15/20 18:47 Freq: Status: Active Protocol: Document 08/18/20 12:48 LRN (Rec: 08/18/20 17:00 LRN [id number]) OP Mobility Evaluation Bed Mobility Rolling Independent with no TA tightening evident Supine to and from Sit Log roll technique with no TA tightening evident OP Gait Assessment Gait Gait Assistance Required: Independent Able to Maintain Weight Bearing Status Yes During Gait Assistive Devices Assistive Device None Gait Deviations General Gait Pattern Lateral Trunk Lean,Wide Based Gait PT-OP-H Neuro Start: 08/15/20 18:47 Freq: Status: Active Protocol: Document 08/18/20 12:48 LRN (Rec: 08/18/20 17:00 LRN [id number]) Sensation Evaluation Gross Sensation Sensation Description Hyperesthesia PT-OP-J Posture/Palpation/Skin Start: 08/15/20 18:47 Freq: Status: Active Protocol: Document 08/18/20 12:48 LRN (Rec: 08/18/20 17:00 LRN [id number]) Posture Evaluation Position Standing Head/C-Spine Posture Forward Head T-Spine Posture Flattened L-Spine Posture Flattened Shoulder Posture (L) Elevated Weight Distribution Decreased Wt.Bear on (R) Comments Posture Comments Extremely wide stance. PT-OP-K Range of Motion Start: 08/15/20 18:47 Freq: Status: Active Protocol: Document 08/18/20 12:48 LRN (Rec: 08/18/20 17:00 LRN [id number]) Lumbar Spine Range of Motion Lumbar Spine Active Degrees Testing Position Standing Flexion 65 Extension 15 Lateral Flexion Left 13 Lateral Flexion Right 10 ROM Limitations Soft Tissue Tightness,Pain Comments Rotation ~ 10 deg's bilaterally PT-OP-M Strength Start: 08/15/20 18:47 Freq: Status: Active Protocol: Document 08/18/20 12:48 LRN (Rec: 08/18/20 17:00 LRN [id number]) Trunk Strength Trunk Manual Muscle Testing Testing Position Sitting Flexion 2 Poor Lateral Flexion Left 3+ Fair+ Lateral Flexion Right 3+ Fair+ Core Stabilization Deferred resisted MMT due to recent surgery. Pt strength assessed per functional mobility. Pt was able to maintain core stability with MMT of hip flexors in supine. Hip Strength Hip Manual Muscle Testing Right Flexion (L2) 5 Normal Abduction 5 Normal Adduction 2+ Poor+ Left Flexion (L2) 5 Normal Abduction 5 Normal Adduction 2+ Poor+ PT-OP-Q Treatments Start: 08/15/20 18:47 Freq: Status: Active Protocol: Document 09/25/20 09:47 SP (Rec: 09/25/20 10:32 SP [id number]) Cardio Equipment Elliptical Duration (Minutes) 5 Resistance 3>4 Other good adustment in intensitiy and ease of breath Therapeutic Exercises Supine Exercises HS stretch Supine Exercise Name added to HEP Side bilateral Equipment Used strap Reps/Minutes 60 x2 Shoulder Flex Supine Exercise Name Shoulder flex AROM (elbow/ shld 90/90 OH) Side bilateral Resistance 10# Equipment Used supine flat Reps/Minutes x30 Comments Cued lower TS/ TA during OH raise good facilitation hip IR/ ER stretch Supine Exercise Name Hip IR/ER stretch Side bilateral Reps/Minutes 4' supine clamshell Side bilateral Resistance TB #4 Equipment Used supine flat table Reps/Minutes x30 Comments cued slow motion with good TA facilitation core heel slide Supine Exercise Name R LE, LLE, double LE repeating Resistance AROM able do full range SL, DL Equipment Used flat supine Reps/Minutes 2x15 Comments continued instruction: slow small range Sidelying Exercises clamshell Side bilateral Resistance #3>4 loop Reps/Minutes x15 Comments good form, pacing w/ TA engagement needed Standing Exercises bicep curl to overhead press Side bilateral Resistance 5# DB Reps/Minutes x10 Active PF Standing Exercise Name PF/ EV strengthening Side bilateral Reps/Minutes 30x each Comments good form, and stability trunk flexion Standing Exercise Name segmental trunk flexion w/ TA return stand Equipment Used 10# DB Reps/Minutes x30 -just little tightness in LB last rep Comments good slow TA awareness and segmental return standing resisted row Standing Exercise Name reviewed HEP Side bilateral Resistance TB #3 Reps/Minutes x30 Comments good scap stab shld ext Standing Exercise Name reviewed HEP Side bilateral Resistance tb #3 Reps/Minutes x10 Comments cue x1 for scapular stab, tall posture, TA facil- good self corrections Self-Care/Home Management Treatment Education Patient Education Home Exercise Program Other Education Added HS stretch w/ strap to HEP for tightness post side clamshell and cuing for neutral ankle positioning to not compensate posterior chain , good self corrections. PT-OP-T Assessment and Plan Start: 08/15/20 18:47 Freq: Status: Active Protocol: Document 09/25/20 09:47 SP (Rec: 09/25/20 10:32 SP [id number]) Physical Therapy Assessment Goals Four Impairment Pt is under UE lifting restrictions Short Term Goal (STG) Pt will be able to perform active UE movements to simulate motions of cutting of wood and working on a boat. 09/04/20: improved TA facilitation supine over head raise, pain free 09/04/20: progressing- pt stated is able to utilize chain saw to cut his wood in front with no resistance or pain with ok by physician when discussed at follow up appt. 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 (09/22/20: Wears back brace and doesn't have back or LE pain .) LTG Duration 11/16/20 (09/22/20: MET GOAL) Three Impairment Decreased tolerance to exercise. Short Term Goal (STG) Pt will be able to perform a TA contraction and hold it during transfers and functional activities. 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 (09/22/20: Able to meet all the goals except splitting of wood, whick the pt doesn't plan to work towards achieving ). LTG Duration 11/16/20 (09/22/20: MET GOAL) Two Impairment Poor abdominal/core stabilization Short Term Goal (STG) Pt will be able to demonstrate proper body mechanics for functional activities. (09/15/20: Pt demonstrates TA tightening prior to transfer sit<>supine, challenging sustaining engagement during transfer. Uses UE support except with sit <> stand). 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 (09/11/20: Pt is not mowing lawn or gardening. He is working on property has occasional LBP on upper hips rated 2/10, no leg pain, has numbness in L inner thigh/knee , able to walk 1/4 mile in neighborhood with tightness in the LB). LTG Duration 11/16/20 (09/11/20: MET GOAL) One Impairment Pt lacks appropriate self care HEP Short Term Goal (STG) Pt will be independent with a self care HEP of ROM exercises . (09/25/20: core heel slide, core OH FF mod range, TA supine/sidelying clamshell, sit<>stands, resisted row/ shld ext, roll up/ down wall 10# DB, bicep curl to OH press 5# DB,) STG Duration 10/03/20 (09/11/20: Progressed) Assisted Goal (LTG) Pt will be independent with a self care HEP of continued strengthening exercises. (09/04/20: TA tightening in sup & hands/knees up to 15 reps, improved chest breathing, TA heel slide, DKFO w/ #4 TB, wall slide, self massage racq ball wall PRN, Hamstring/hip stretch elevated supine w/ strap or sit, shld ext and rows TB, sidelying clam shell #1, trunk flexion back to wall TA return, ankle PF/ EV strengthening). LTG Duration 11/16/20 (09/11/20: Progressing) Assessment Summary Assessment Pt improved with TA facilitation during ex eccentric returns, able to increase reps on most approx 30 and resistance with clam, wall roll down today. Physical Therapy Plan Frequency and Duration Frequency of Treatment 2x/Week Plan of Care Start Date 08/18/20 Plan of Care End Date 11/16/20 Therapeutic Interventions Therapeutic Interventions Home Exercise Program, Neuromuscular Re-education, Patient/Caregiver Education, Self-Care/Home Management,Soft Tissue Mobilization, Therapeutic Activities, Therapeutic Exercises Modalities Cold Pack/Ice Massage,Hot Packs Next Visit Focus/Plan Next Note Type Treatment Note Next Visit Plan 2 visits and DC to HEP. Updating to self care HEP goal . Next tx review ankle DF stretch, & Body mechanics training. For a full body program, HEP to include: trunk AROM w/TA, progressive core strengthening using LE's (LE strengthening), with caution of MESH in abdomen, awareness general UE strengthening ( caution neck pain history). Monitor chest breathing/ holding TA in sidelie, and being able to hold TA throughout transfers and with gait: L toe off with neutral positioning of foot/LE, & core stability. ET core facilitation and breath.
--- NOTE | 2020-09-29 10:35 | PT.OTN ---
Current Diagnoses Stiffness of right hip, not elsewhere classified (09/29/20) Radiculopathy, lumbar region (09/29/20) Muscle weakness (generalized) (09/29/20) Physical Therapy Treatment Note PT-OP-A Visit Information Start: 08/15/20 18:47 Freq: Status: Active Protocol: Document 09/29/20 09:47 SP (Rec: 09/29/20 12:06 SP [id number]) Out-Patient Physical Therapy Visit Information Visit Information Visit Type Treatment Note Visit Start Time 09:47 Visit Stop Time 10:35 Total Visit Minutes 48 Visit Number 11 Number of DIRECTOR OF CATERING Visits 2 Evaluation Information Evaluation Date 08/18/20 Precautions Precautions 30# lifting restriction instructed always. Pt reported abdominal MESH surgery x 3 with no rectus abdominus muscle present. 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 PT-OP-B Current Condition Start: 08/15/20 18:47 Freq: Status: Active Protocol: Document 08/18/20 12:48 LRN (Rec: 08/18/20 17:00 LRN [id number]) Current Condition History of Current Condition Onset Date ~07/07/20 Current Complaints Low back pain and down legs with walking. Buttock pain at night. History of Current Condition Back and low back pain for years and something set off the blown L1 disc. Told spinal column fluid may leak. States his back surgery was to put a tube in his back and clean out spinal column on , and he is now almost healed. States he was in wheelchair for 10 days due to blown L1 disc and lost use of legs. States he is now walking 1/2 mile for exercise with muscle pain in his back after walking. He is currently restricted in lifting, squatting: no more than 10# (gal of milk) for another 2 weeks. Ready to get back exercising on his eliptical. Has been off hydrocodone and tylenol for 4 days, taking Gabapentin for neck pain. PMH: R TKA - 2019, Abdominal surgery x 4 (last year ~1998, ~2001, ~2002, ~2003), controlled HBP. Prior Treatments and Tests Neck rehabilitation several years ago. X-ray (07/09/20): Grade II L5-S1 isthmic spondylolisthesis; multilevel DDD (T12 through S1 discs of moderate disc bulge except L5- S1 mild disc bulge); multilevel facte arthropathy; L1-L2 disc extrusion causing severe central canal stenosis and compression of the traversing nerve roots of the cauda equina; and Severe bilateral L5-S1 neural foraminal narrowing with compression of the exiting bilateral L5 nerve roots, Moderate to severe left L4-L5 neural foraminal narrowing with slight compression of the exiting left L4 nerve root. Future Testing and Treatments Planned Next surgeon MD visit is in 2 weeks. Will also see Dr. Townsend for surgery f/u and medications review (Gabapentin). Developmental History Developmental History Hx of neck pain that he just deals with. Pt reports Hernia abdominal repair with 2 mesh surgeries that failed. Last surgery placed a mesh across his abdomen horizontally. Can't do sit ups, but can tense abdomen. 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 Has medicine ball and wants to be able to stretch out. Takes Tylenol to sleep through the night. Functional Limitations- Mobility/Gait Walking 1/2 mile daily. Functional Limitations- Recreation/ See below Hobbies Functional Limitations- Other Restricted from activities for 6 wks post op on 07/21/20 (in 2 more weeks, 09/02/20). 10# lifting restriction, Restricted from squatting. Personal Factors Other Personal Factors That May Effect Has cervical stenosis with Therapy/Recovery occasional numbness in both hands, worse on R side. PT-OP-C Subjective Start: 08/15/20 18:47 Freq: Status: Active Protocol: Document 09/29/20 09:47 SP (Rec: 09/29/20 12:06 SP [id number]) OP-PT Subjective Patient Comments Patient Comments Pt stated doing well. Consistant with HEP, getting about 5-6 min on Elliptical after does a 1/4 mile walk outside. Feels is doing almost 30 min of HEP as had hoped with good results set up with PT to continue on own. Patient Reported Progress Improving PT-OP-G Mobility & Gait Start: 08/15/20 18:47 Freq: Status: Active Protocol: Document 08/18/20 12:48 LRN (Rec: 08/18/20 17:00 LRN [id number]) OP Mobility Evaluation Bed Mobility Rolling Independent with no TA tightening evident Supine to and from Sit Log roll technique with no TA tightening evident OP Gait Assessment Gait Gait Assistance Required: Independent Able to Maintain Weight Bearing Status Yes During Gait Assistive Devices Assistive Device None Gait Deviations General Gait Pattern Lateral Trunk Lean,Wide Based Gait PT-OP-H Neuro Start: 08/15/20 18:47 Freq: Status: Active Protocol: Document 08/18/20 12:48 LRN (Rec: 08/18/20 17:00 LRN [id number]) Sensation Evaluation Gross Sensation Sensation Description Hyperesthesia PT-OP-J Posture/Palpation/Skin Start: 08/15/20 18:47 Freq: Status: Active Protocol: Document 08/18/20 12:48 LRN (Rec: 08/18/20 17:00 LRN [id number]) Posture Evaluation Position Standing Head/C-Spine Posture Forward Head T-Spine Posture Flattened L-Spine Posture Flattened Shoulder Posture (L) Elevated Weight Distribution Decreased Wt.Bear on (R) Comments Posture Comments Extremely wide stance. PT-OP-K Range of Motion Start: 08/15/20 18:47 Freq: Status: Active Protocol: Document 08/18/20 12:48 LRN (Rec: 08/18/20 17:00 LRN [id number]) Lumbar Spine Range of Motion Lumbar Spine Active Degrees Testing Position Standing Flexion 65 Extension 15 Lateral Flexion Left 13 Lateral Flexion Right 10 ROM Limitations Soft Tissue Tightness,Pain Comments Rotation ~ 10 deg's bilaterally PT-OP-M Strength Start: 08/15/20 18:47 Freq: Status: Active Protocol: Document 08/18/20 12:48 LRN (Rec: 08/18/20 17:00 LRN [id number]) Trunk Strength Trunk Manual Muscle Testing Testing Position Sitting Flexion 2 Poor Lateral Flexion Left 3+ Fair+ Lateral Flexion Right 3+ Fair+ Core Stabilization Deferred resisted MMT due to recent surgery. Pt strength assessed per functional mobility. Pt was able to maintain core stability with MMT of hip flexors in supine. Hip Strength Hip Manual Muscle Testing Right Flexion (L2) 5 Normal Abduction 5 Normal Adduction 2+ Poor+ Left Flexion (L2) 5 Normal Abduction 5 Normal Adduction 2+ Poor+ PT-OP-Q Treatments Start: 08/15/20 18:47 Freq: Status: Active Protocol: Document 09/29/20 09:47 SP (Rec: 09/29/20 12:06 SP [id number]) Cardio Equipment Elliptical Duration (Minutes) 6 Resistance 4 Other good adustment in intensitiy and ease of breath Therapeutic Exercises Supine Exercises HS stretch Supine Exercise Name reviewed HEP Side bilateral Equipment Used strap Reps/Minutes 60 x2 Shoulder Flex Supine Exercise Name Shoulder flex AROM (elbow/ shld 90/90 OH) Side bilateral Resistance 10# Equipment Used supine flat Reps/Minutes x30 Comments Cued lower TS/ TA during OH raise good facilitation hip IR/ ER stretch Supine Exercise Name Hip IR/ER stretch Side bilateral Reps/Minutes 2' supine clamshell Supine Exercise Name verbal review today is doing at home Side bilateral Resistance TB #4 Equipment Used supine flat table Reps/Minutes x30 Comments cued slow motion with good TA facilitation core heel slide Supine Exercise Name R LE, LLE, double LE repeating Resistance AROM able do full range SL, DL Equipment Used flat supine Reps/Minutes 2x15 Comments continued instruction: slow small range Sidelying Exercises clamshell Sidelying Exercise Name verbal review is doing at home Side bilateral Resistance #3>4 loop Reps/Minutes x15 Comments good form, pacing w/ TA engagement needed Sitting Exercises self STMs Sitting Exercise Name quad, ITB added for self care getting in /out chair Side left Equipment Used rolling stick Reps/Minutes 2 min total Comments assist self massage- improved decreased popping lateral L knee Standing Exercises core press outs w/ side stepping Standing Exercise Name - good feedback results Side bilateral Resistance Tb #2 Reps/Minutes 3 x5 reps x2 sets Comments occasional cuing for scap & trunk posture, PPT awareness & soft knee- bicep curl to overhead press Standing Exercise Name reviewed HEP Side bilateral Resistance 10# DB Reps/Minutes x10 Comments cued x1 scap depression stab sit to stands Standing Exercise Name hip eccentric sit<> stand arms across chest Resistance AROM Reps/Minutes x5 today- stopped due to Lat L knee popping today- does at home w/ no prob Comments good posture and TA facilitation, cued knees with/ behind toes resisted row Standing Exercise Name reviewed HEP Side bilateral Resistance TB #3 Reps/Minutes x30 Comments cue x1 for scap depress stab, tall posture, TA facil- good self corrections shld ext Standing Exercise Name reviewed HEP Side bilateral Resistance tb #3 Reps/Minutes x10 Comments cue x1 for scap depress stab, tall posture, TA facil- good self corrections Self-Care/Home Management Treatment Education Patient Education Home Exercise Program Other Education Reviewed HEP with good results . Discussed progression of TA and LE mobility march/ lift but unable to perform right now continue single/ Double heel slide. Added resisted core press w/ side stepping with good feedback core and trunk work, no adverse affects for carryover in standing. PT-OP-T Assessment and Plan Start: 08/15/20 18:47 Freq: Status: Active Protocol: Document 09/29/20 09:47 SP (Rec: 09/29/20 12:06 SP [id number]) Physical Therapy Assessment Goals Four Impairment Pt is under UE lifting restrictions Short Term Goal (STG) Pt will be able to perform active UE movements to simulate motions of cutting of wood and working on a boat. 09/04/20: improved TA facilitation supine over head raise, pain free 09/04/20: progressing- pt stated is able to utilize chain saw to cut his wood in front with no resistance or pain with ok by physician when discussed at follow up appt. 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 (09/22/20: Wears back brace and doesn't have back or LE pain .) LTG Duration 11/16/20 (09/22/20: MET GOAL) Three Impairment Decreased tolerance to exercise. Short Term Goal (STG) Pt will be able to perform a TA contraction and hold it during transfers and functional activities. 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 (09/22/20: Able to meet all the goals except splitting of wood, whick the pt doesn't plan to work towards achieving ). LTG Duration 11/16/20 (09/22/20: MET GOAL) Two Impairment Poor abdominal/core stabilization Short Term Goal (STG) Pt will be able to demonstrate proper body mechanics for functional activities. (09/15/20: Pt demonstrates TA tightening prior to transfer sit<>supine, challenging sustaining engagement during transfer. Uses UE support except with sit <> stand). 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 (09/11/20: Pt is not mowing lawn or gardening. He is working on property has occasional LBP on upper hips rated 2/10, no leg pain, has numbness in L inner thigh/knee , able to walk 1/4 mile in neighborhood with tightness in the LB). LTG Duration 11/16/20 (09/11/20: MET GOAL) One Impairment Pt lacks appropriate self care HEP Short Term Goal (STG) Pt will be independent with a self care HEP of ROM exercises . (09/29/20: core single/ double heel slide, core OH FF mod arm range flat, TA supine/ sidelying clamshell, sit<> stands, resisted row/ shld ext / press out w/sidestepping, roll up/ down wall 10# DB, bicep curl to OH press 10# DB) Discussed progression hand out for supine march/ lift lower but unable to perform at this time. STG Duration 10/03/20 (09/11/20: Progressed) Clothing Sales Assistant Goal (LTG) Pt will be independent with a self care HEP of continued strengthening exercises. (09/04/20: TA tightening in sup & hands/knees up to 15 reps, improved chest breathing, TA heel slide, DKFO w/ #4 TB, wall slide, self massage racq ball wall PRN, Hamstring/hip stretch elevated supine w/ strap or sit, shld ext and rows TB, sidelying clam shell #1, trunk flexion back to wall TA return, ankle PF/ EV strengthening). LTG Duration 11/16/20 (09/11/20: Progressing) Progress Towards Goals Progress Comments Goals 4, 3, 2 LTGs MET Assessment Summary Assessment Pt is improved with TA faciltation during standing HEP, supine HEP with LE contact on table, occasional cues for slow pacing. Able to progress reps to 30 at this time and increase resistance. Initiated resisted pressout side steping TB today for dynamic core strengthening wtih good results and feedback for home. Provided hand out for supine core progression but unable to perform at this time, understands the proper form and when able to initiate . Pt has improved with endurance in cardio elliptical and awareness of TA with proper breathing control. Physical Therapy Plan Frequency and Duration Frequency of Treatment 2x/Week Plan of Care Start Date 08/18/20 Plan of Care End Date 11/16/20 Therapeutic Interventions Therapeutic Interventions Home Exercise Program, Neuromuscular Re-education, Patient/Caregiver Education, Self-Care/Home Management,Soft Tissue Mobilization, Therapeutic Activities, Therapeutic Exercises Modalities Cold Pack/Ice Massage,Hot Packs Next Visit Focus/Plan Next Note Type Treatment Note Next Visit Plan 1 visit with PT and DC to HEP. Review updated goals. Next tx review added core pressout/ side step to full body HEP, see goal #1.
--- NOTE | 2020-10-02 17:10 | PT.OTN ---
Current Diagnoses Stiffness of right hip, not elsewhere classified (10/02/20) Radiculopathy, lumbar region (10/02/20) Muscle weakness (generalized) (10/02/20) Physical Therapy Treatment Note PT-OP-A Visit Information Start: 08/15/20 18:47 Freq: Status: Active Protocol: Document 10/02/20 09:54 LRN (Rec: 10/02/20 10:40 LRN [id number]) Out-Patient Physical Therapy Visit Information Visit Information Visit Type Treatment Note Visit Start Time 09:54 Visit Stop Time 10:39 Total Visit Minutes 45 Visit Number 12 Evaluation Information Evaluation Date 08/18/20 Precautions Precautions 30# lifting restriction instructed always. Pt reported abdominal MESH surgery x 3 with no rectus abdominus muscle present. 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 PT-OP-B Current Condition Start: 08/15/20 18:47 Freq: Status: Active Protocol: Document 08/18/20 12:48 LRN (Rec: 08/18/20 17:00 LRN [id number]) Current Condition History of Current Condition Onset Date ~07/07/20 Current Complaints Low back pain and down legs with walking. Buttock pain at night. History of Current Condition Back and low back pain for years and something set off the blown L1 disc. Told spinal column fluid may leak. States his back surgery was to put a tube in his back and clean out spinal column on , and he is now almost healed. States he was in wheelchair for 10 days due to blown L1 disc and lost use of legs. States he is now walking 1/2 mile for exercise with muscle pain in his back after walking. He is currently restricted in lifting, squatting: no more than 10# (gal of milk) for another 2 weeks. Ready to get back exercising on his eliptical. Has been off hydrocodone and tylenol for 4 days, taking Gabapentin for neck pain. PMH: R TKA - 2019, Abdominal surgery x 4 (last year ~1998, ~2001, ~2002, ~2003), controlled HBP. Prior Treatments and Tests Neck rehabilitation several years ago. X-ray (07/09/20): Grade II L5-S1 isthmic spondylolisthesis; multilevel DDD (T12 through S1 discs of moderate disc bulge except L5- S1 mild disc bulge); multilevel facte arthropathy; L1-L2 disc extrusion causing severe central canal stenosis and compression of the traversing nerve roots of the cauda equina; and Severe bilateral L5-S1 neural foraminal narrowing with compression of the exiting bilateral L5 nerve roots, Moderate to severe left L4-L5 neural foraminal narrowing with slight compression of the exiting left L4 nerve root. Future Testing and Treatments Planned Next surgeon MD visit is in 2 weeks. Will also see Dr. Townsend for surgery f/u and medications review (Gabapentin). Developmental History Developmental History Hx of neck pain that he just deals with. Pt reports Hernia abdominal repair with 2 mesh surgeries that failed. Last surgery placed a mesh across his abdomen horizontally. Can't do sit ups, but can tense abdomen. 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 Has medicine ball and wants to be able to stretch out. Takes Tylenol to sleep through the night. Functional Limitations- Mobility/Gait Walking 1/2 mile daily. Functional Limitations- Recreation/ See below Hobbies Functional Limitations- Other Restricted from activities for 6 wks post op on 07/21/20 (in 2 more weeks, 09/02/20). 10# lifting restriction, Restricted from squatting. Personal Factors Other Personal Factors That May Effect Has cervical stenosis with Therapy/Recovery occasional numbness in both hands, worse on R side. PT-OP-C Subjective Start: 08/15/20 18:47 Freq: Status: Active Protocol: Document 10/02/20 09:54 LRN (Rec: 10/02/20 10:40 LRN [id number]) OP-PT Subjective Patient Comments Patient Comments States is not at a plateau. States he has a work out routine that taxes him, so he plans on just progressing as he can. PT-OP-G Mobility & Gait Start: 08/15/20 18:47 Freq: Status: Active Protocol: Document 08/18/20 12:48 LRN (Rec: 08/18/20 17:00 LRN [id number]) OP Mobility Evaluation Bed Mobility Rolling Independent with no TA tightening evident Supine to and from Sit Log roll technique with no TA tightening evident OP Gait Assessment Gait Gait Assistance Required: Independent Able to Maintain Weight Bearing Status Yes During Gait Assistive Devices Assistive Device None Gait Deviations General Gait Pattern Lateral Trunk Lean,Wide Based Gait PT-OP-H Neuro Start: 08/15/20 18:47 Freq: Status: Active Protocol: Document 08/18/20 12:48 LRN (Rec: 08/18/20 17:00 LRN [id number]) Sensation Evaluation Gross Sensation Sensation Description Hyperesthesia PT-OP-J Posture/Palpation/Skin Start: 08/15/20 18:47 Freq: Status: Active Protocol: Document 08/18/20 12:48 LRN (Rec: 08/18/20 17:00 LRN [id number]) Posture Evaluation Position Standing Head/C-Spine Posture Forward Head T-Spine Posture Flattened L-Spine Posture Flattened Shoulder Posture (L) Elevated Weight Distribution Decreased Wt.Bear on (R) Comments Posture Comments Extremely wide stance. PT-OP-K Range of Motion Start: 08/15/20 18:47 Freq: Status: Active Protocol: Document 08/18/20 12:48 LRN (Rec: 08/18/20 17:00 LRN [id number]) Lumbar Spine Range of Motion Lumbar Spine Active Degrees Testing Position Standing Flexion 65 Extension 15 Lateral Flexion Left 13 Lateral Flexion Right 10 ROM Limitations Soft Tissue Tightness,Pain Comments Rotation ~ 10 deg's bilaterally PT-OP-M Strength Start: 08/15/20 18:47 Freq: Status: Active Protocol: Document 08/18/20 12:48 LRN (Rec: 08/18/20 17:00 LRN [id number]) Trunk Strength Trunk Manual Muscle Testing Testing Position Sitting Flexion 2 Poor Lateral Flexion Left 3+ Fair+ Lateral Flexion Right 3+ Fair+ Core Stabilization Deferred resisted MMT due to recent surgery. Pt strength assessed per functional mobility. Pt was able to maintain core stability with MMT of hip flexors in supine. Hip Strength Hip Manual Muscle Testing Right Flexion (L2) 5 Normal Abduction 5 Normal Adduction 2+ Poor+ Left Flexion (L2) 5 Normal Abduction 5 Normal Adduction 2+ Poor+ PT-OP-Q Treatments Start: 08/15/20 18:47 Freq: Status: Active Protocol: Document 10/02/20 09:54 LRN (Rec: 10/02/20 10:40 LRN [id number]) Cardio Equipment Recumbent Elliptical (Jumpzter) Duration (Minutes) 6 Resistance 4 Other Stopped when pt has increased breath and Pt noted HR. Therapeutic Exercises Supine Exercises TA tightening Lev1 & Lev2 of program Supine Exercise Name TA w/Marching & Step outs Side bilateral Comments Cuing for maintaining Core stability with LE movement hip IR/ ER stretch Supine Exercise Name Hip IR/ER stretch Side bilateral Reps/Minutes 4' core heel slide Supine Exercise Name R LE, LLE, double LE repeating Resistance AROM able do full range SL, DL Equipment Used flat supine Reps/Minutes 2x15 Comments continued instruction: slow small range Chest Breathing Supine Exercise Name Chest breathing training w/ manual stim at chest Side bilateral Equipment Used inclined on pillows Comments Cuing to improve chest excursion generally L better than R. Standing Exercises Trunk AROM: Rot Standing Exercise Name Trunk Rot Side bilateral core press outs w/ side stepping Standing Exercise Name - good feedback results Side bilateral Resistance Tb #2 Reps/Minutes 3 x5 reps x2 sets Comments occasional cuing for scap & trunk posture, PPT awareness & soft knee- trunk flexion Standing Exercise Name Chest punch outs Side bilateral Equipment Used Lev 2 TB Reps/Minutes 20x resisted row Standing Exercise Name reviewed HEP Side bilateral Resistance TB #3 Reps/Minutes x30 Comments cue x1 for scap depress stab, tall posture, TA facil- good self corrections Self-Care/Home Management Treatment Education Patient Education Home Exercise Program Activities Self-Care/Home Management Activities Issued: Lev 3 TB w/ instructions for progressiong. Re-issued Lev 2 TB and White strap. Issued & reviewed HEP: Chest press out for Trunk flex strengthening and AROM. PT-OP-T Assessment and Plan Start: 08/15/20 18:47 Freq: Status: Active Protocol: Document 10/02/20 09:54 LRN (Rec: 10/02/20 10:40 LRN [id number]) Physical Therapy Assessment Goals Four Impairment Pt is under UE lifting restrictions Short Term Goal (STG) Pt will be able to perform active UE movements to simulate motions of cutting of wood and working on a boat. 09/04/20: improved TA facilitation supine over head raise, pain free 09/04/20: progressing- pt stated is able to utilize chain saw to cut his wood in front with no resistance or pain with ok by physician when discussed at follow up appt. 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 (09/22/20: Wears back brace and doesn't have back or LE pain .) LTG Duration 11/16/20 (09/22/20: MET GOAL) Three Impairment Decreased tolerance to exercise. Short Term Goal (STG) Pt will be able to perform a TA contraction and hold it during transfers and functional activities. 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 (09/22/20: Able to meet all the goals except splitting of wood, whick the pt doesn't plan to work towards achieving ). LTG Duration 11/16/20 (09/22/20: MET GOAL) Two Impairment Poor abdominal/core stabilization Short Term Goal (STG) Pt will be able to demonstrate proper body mechanics for functional activities. (09/15/20: Pt demonstrates TA tightening prior to transfer sit<>supine, challenging sustaining engagement during transfer. Uses UE support except with sit <> stand). 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 (09/11/20: Pt is not mowing lawn or gardening. He is working on property has occasional LBP on upper hips rated 2/10, no leg pain, has numbness in L inner thigh/knee , able to walk 1/4 mile in neighborhood with tightness in the LB). LTG Duration 11/16/20 (09/11/20: MET GOAL) One Impairment Pt lacks appropriate self care HEP Short Term Goal (STG) Pt will be independent with a self care HEP of ROM exercises . (10/02/20: Completed issuance of ROM HEP with progressive/ strap T-Band issued) STG Duration 10/03/20 (10/02/20: MET GOAL) [facility] Goal (LTG) Pt will be independent with a self care HEP of continued strengthening exercises. (11/03/20: Competed issuance of strengthening HEP) LTG Duration 11/16/20 (10/02/20: MET GOAL) Assessment Summary Assessment Pt met all goals and is ready to be placed on an independent HEP. Pt was able to maintain core stability with marching, but not with step outs; therefore he has a program that he can progress on his own over time. Pt has done well with therapy with no complaints of pain and shows improved core control overall with ability to perform a transverse abdominal contraction and maintain it somewhat with shallow breathing. I feel the pt will do well on his HEP. Physical Therapy Plan Discharge Physical Therapy Discharge Reasons Goals Met Discharge Comments Pt will continue with his independent HEP. Thank you for your referral.
== END 2020-10-06 07:43 | disposition home or self-care (01) ==
LOC: PHYS 09:45
PROVIDERS: Family Provider Family Medicine; PCP Family Medicine; Referring Provider Neurological Surgery; Visit Provider Neurological Surgery
DX: M54.16 Radiculopathy, lumbar region (principal); M25.651 Stiffness of right hip, not elsewhere classified; M62.81 Muscle weakness (generalized)
CPT/HCPCS: 97110; 97116; 97162; 97530; 97535

== ENCOUNTER → 2021-05-09 14:58 | Outpatient (CLI) | payer MEDICARE, OTHER, SELFPAY ==
[2019-01-31 13:53] VITALS: BMI 28.6
--- NOTE | 2021-05-09 | DI.MRI.S_ITS ---
PROCEDURE: MR CERVICAL SPINE WO CON INDICATIONS: cervicalgia TECHNIQUE: Noncontrast sagittal T1 spin echo and T2 fast spin echo, sagittal STIR, foraminal oblique sagittal T2 fast spin echo, and axial gradient echo or T2 fast spin echo through the cervical spine. COMPARISON: [facility], MR, C-SPINE WITHOUT CONTRAST, 12/12/2015, 7:44. FINDINGS: Image quality: Excellent. Alignment and Curvature: There is normal bony alignment. Bone Marrow: Marrow demonstrates normal overall signal. Spinal Cord: Visualized spinal cord has normal size and signal. No cerebellar tonsillar herniation. Paraspinous Soft Tissues: No paravertebral masses. Prevertebral soft tissues are normal in thickness. C2-C3: Prominent right facet hypertrophy. No canal stenosis or foraminal stenosis. C3-C4: Mild increase in posterior disc osteophyte complex, minimally indenting on the cord. AP diameter of the canal is approximately 9.3 mm. Bilateral uncovertebral joint hypertrophy and facet hypertrophy. Moderate bilateral foraminal stenosis with flattening deformity on the exiting bilateral C4 nerve roots. C4-C5: Posterior disc bulge. No canal stenosis. Bilateral uncovertebral joint hypertrophy, right greater than left. Bilateral facet arthropathy, right greater than left. Moderate to severe bilateral foraminal narrowing with impingement on the exiting bilateral C5 nerve roots. C5-C6: Disc bulge. Posterior ligamentous hypertrophy. AP diameter of the canal is slightly greater than 10 mm. Bilateral uncovertebral joint hypertrophy and facet hypertrophy. Mild bilateral foraminal stenosis. C6-C7: Posterior disc osteophyte complex mildly indenting on the cord. Mild canal stenosis. Bilateral uncovertebral joint hypertrophy and facet hypertrophy. Moderate bilateral foraminal stenosis with mild flattening deformity on the exiting bilateral C7 nerve roots. C7-T1: No canal stenosis or foraminal stenosis. IMPRESSION: 1. Diffuse spondylitic change, with multilevel uncovertebral joint hypertrophy and facet arthropathy. 2. Slight interval progression at C3-C4. 3. Canal stenosis is mild at C3-C4 and C6-C7. 4. Multilevel foraminal narrowing as described above, including moderate to severe bilateral foraminal narrowing at C4-C5. Dictated by: Fei Monet M.D. on 05/11/2021 at 8:41 Approved by: Fei Monet M.D. on 05/11/2021 at 9:14
== END ==
PROVIDERS: Family Provider Family Medicine; PCP Family Medicine; Referring Provider Family Medicine; Visit Provider Family Medicine
DX: M47.812 Spondylosis without myelopathy or radiculopathy, cervical region (principal); M48.02 Spinal stenosis, cervical region; M54.2 Cervicalgia
CPT/HCPCS: 72141

== ENCOUNTER 2022-09-14 00:33 | Inpatient (IN) | payer MEDICARE, OTHER, SELFPAY ==
[2021-09-01 11:13] VITALS: BMI 28.6
[2022-09-14 01:00] VITALS: BP 125/86; PULSE 80; RESP 18; TEMP 36.4; O2SAT 97; BMI 29.5
--- NOTE | 2022-09-14 01:08 | DI.RAD.S_ITS ---
PROCEDURE: XR ABDOMEN 1V INDICATIONS: SBO TECHNIQUE: One view of the abdomen acquired. COMPARISON: None. FINDINGS: Surgical changes and devices: Partially seen lower chest and upper abdominal clips. Bowel: There is diffuse moderate distention of small bowel loops, measuring up to 5 cm. Moderate amount of stool is also seen in the colon or rectum. Soft tissues: No suspicious abdominal calcifications. Visualized solid organ contours appear normal in size. Bones: Degenerative changes. IMPRESSION: Diffuse distention of small bowel loops up to 5 cm representing obstruction or ileus. Some stool and gas are seen in the colon and rectum. Consider CT to further evaluate if necessary. Dictated by: Anjum Perez M.D. on 09/14/2022 at 1:48 Approved by: Anjum Perez M.D. on 09/14/2022 at 1:50
[2022-09-14] MEDS: SODIUM CHLORIDE 0.9% 1,000 ML 1000 ML IV (01:26)
[2022-09-14] MEDS: HYDROMORPHONE 0.5 MG INJ IV ×5 (01:27→08:03)
[2022-09-14] MEDS: ONDANSETRON 4 MG/2 ML INJ IV (01:27)
[2022-09-14 01:30] LABS: Add Manual Diff / Slide Review NO; Basophils Absolute Auto 0 /uL (0-100); Basophils Percent Auto 0.3 % (0-2); Eosinophils Absolute Auto 100 /uL (0-450); Eosinophils Percent Auto 0.4 % (2-4); Hematocrit 44.7 % (41-53); Hemoglobin 15.1 g/dL (13.5-17.5); Lymphocytes Absolute Auto 1500 /uL (1100-4500); Lymphocytes Percent Auto 10.7 % (25-40); Mean Corpuscular HGB Conc 33.7 % (30-36); Mean Corpuscular Hemoglobin 30.7 PG (26-34); Mean Corpuscular Volume 91.2 fL (80-100); Monocytes Absolute Auto 800 /uL (0-900); Monocytes Percent Auto 5.7 % (3-14); Neutrophils Absolute Auto 11400 /uL (1500-7000); Neutrophils Percent Auto 82.9 % (50-75); Platelet Count 219 X10^3/uL (150-400); Red Cell Distribution Width 14.1 % (11.6-14.8); White Blood Cell Count 13.7 X10^3/uL (4.5-11.0)
[2022-09-14 01:38] LABS: Alanine Aminotransferase 37 IU/L (<50); Albumin 4.2 g/dL (3.5-5.0); Albumin Globulin Ratio 1.3 (1.0-2.8); Alkaline Phosphatase 96 U/L (38-126); Aspartate Aminotransferase 35 IU/L (17-59); BUN Creatinine Ratio 20.5 (6-22); Bilirubin Total 0.8 mg/dL (0.2-1.3); Blood Urea Nitrogen 17 mg/dL (9-20); Calcium 8.7 mg/dL (8.4-10.2); Carbon Dioxide 29 mmol/L (22-32); Chloride 99 mmol/L (98-107); Estimated Glomerular Filt Rate > 60 mL/min (>60); Globulin 3.2 g/dL (1.7-4.1); Glucose 147 mg/dL (80-110); HEMOLYSIS < 15 (0-50); Potassium 4.3 mmol/L (3.4-5.1); Sodium 137 mmol/L (137-145); Total Protein 7.4 g/dL (6.3-8.2)
[2022-09-14 01:50] LABS: Troponin I < 0.012 ng/mL (0.01-0.034)
--- NOTE | 2022-09-14 02:25 | ED.GENADULT ---
HPI - General Adult General Chief complaint: Abdominal Pain Stated complaint: BOWEL OBSTRUCTION Time Seen by Provider: 09/14/22 01:07 Source: patient Mode of arrival: Wheelchair History of Present Illness HPI narrative: 66-year-old gentleman with a history of multiple abdominal surgeries (ventral hernia mesh and Joce fundoplication) and bowel obstructions each successfully treated with NG tube and supportive care. He has been told he can not have any additional abdominal surgery [facility] He presents today complaining of acute abdominal pain at 10:00 a.m. that he thought was perhaps constipation. He gave himself a laxative with no success and pain progressively getting worse. Presents with significant belly distention concerned that he has another abdominal obstruction. He describes no recent fevers, cough, chills. He is not actually been vomiting. Last flatus or bowel movement was around 10:00 a.m. this morning. He reports no chest pain or palpitations. Related Data Home Medications Medication Instructions Recorded Confirmed gabapentin 100 mg capsule 600 mg PO TID ##0 04/16/16 10/28/21 amlodipine 5 mg tablet 5 mg PO BEDTIME 01/17/19 10/28/21 duloxetine 20 mg capsule,delayed 30 mg PO BEDTIME 01/17/19 10/28/21 release hydrocodone 5 mg-acetaminophen 325 1 - 2 tab PO Q6H PRN Pain (Scale 05/13/20 10/28/21 mg tablet Score 4-6) methocarbamol 500 mg tablet 1,000 mg PO QID PRN Spasms ##0 05/13/20 10/28/21 ascorbic acid (vitamin C) 1,000 mg 1,000 mg PO Q12H 07/21/21 10/28/21 tablet,extended release nabumetone 500 mg tablet 500 mg PO BID 07/21/21 10/28/21 pravastatin 40 mg tablet 40 mg PO BEDTIME 07/21/21 10/28/21 psyllium husk 3.4 gram/5.4 gram 1 tbsp PO DAILY 07/21/21 10/28/21 oral powder (Metamucil) Previous Rx's Medication Instructions Recorded omeprazole 20 mg capsule,delayed 20 mg PO DAILY Ulcer #30 caps 05/13/20 release tamsulosin 0.4 mg capsule 0.4 mg PO BEDTIME #90 caps 07/21/21 bicalutamide 50 mg tablet (Casodex) 50 mg PO DAILY #30 tabs 10/28/21 Allergies Allergy/AdvReac Type Severity Reaction Status Date / Time morphine AdvReac Severe Cramping Verified 10/28/21 15:35 Review of Systems Review of Systems Narrative: Pertinent positive and negative findings as per HPI Patient History Medical History Anemia Cervical spinal stenosis Depression Diverticula of colon Elevated PSA Enlarged prostate Family history of prostate cancer HLD (hyperlipidemia) HTN (hypertension) Lower urinary tract symptoms (LUTS) Osteoarthritis Prostate cancer SCC (squamous cell carcinoma) (~10/2018) Small bowel obstruction (~03/2016) Surgical History H/O vasectomy Hx of abdominal surgery Hx of tonsillectomy Family History Father Hyperlipidemia Hypertension Mother Hyperlipidemia Hypertension UTI symptoms Grandmother FH: CVA (cerebrovascular accident) Social History marital status: number of children: 3 household members: spouse occupational status: previously employed Smoking Status: Former smoker alcohol intake: current substance use type: does not use Smoking Status: Former smoker alcohol intake frequency: a few times a week Substance Use Type: does not use Exam Initial Vital Signs Initial Vital Signs: Vital Signs Temperature 97.6 F 09/14/22 01:00 Pulse Rate 80 09/14/22 01:00 Respiratory Rate 18 09/14/22 01:00 Blood Pressure 125/86 09/14/22 01:00 Pulse Oximetry 97 09/14/22 01:00 Oxygen Delivery Method Room Air 09/14/22 01:00 General: Healthy appearing, in significant pain secondary to abdominal distention. Able to give a complete and coherent history. Well-nourished well-developed HEENT: Moist mucous membranes, normal sclera with reactive pupils, Respiratory: Lungs are clear to auscultation, no wheezing no rales no rhonchi. Full and symmetrical air movement Cardiac: Regular rate and rhythm no murmurs no bruits Abdomen: Distended, tympanitic, tender to palpation without rebound or guarding. Skin: Warm and dry, no rashes Neurologic: Grossly neurologically intact with no obvious asymmetries or abnormalities Extremities: No trauma, well perfused Psych: Cooperative, appropriate insight and affect Course Orders Ordered: ED Orders 09/14/22 01:08 XR abdomen 1V Stat EKG-12 Lead Stat 09/14/22 01:15 Complete Blood Count AUTO DIFF Stat Comprehensive Metabolic Panel Stat Troponin I Stat 09/14/22 02:34 COVID19 -Nasal RAPID Stat Hydromorphone HCl (Hydromorphone 0.5 Mg Inj) 0.5 mg IV Q15MIN PRN PRN Reason: Pain, Last Admin: 09/14/22 05:49 Dose: 0.5 mg Documented By: Admin: 09/14/22 05:26 Dose: 0.5 mg Documented By: Admin: 09/14/22 05:11 Dose: 0.5 mg Documented By: Admin: 09/14/22 01:27 Dose: 0.5 mg Documented By: AKIL Sodium Chloride (Normal Saline 0.9%) 1,000 mls @ 150 mls/hr IV CONT ABDIRAHMAN Last Admin: 09/14/22 05:21 Dose: 150 mls/hr Documented By: DIMITRI Discontinued Medications Hydromorphone HCl (Hydromorphone 1 Mg Inj) 1 mg IV NOW ONE Stop: 09/14/22 02:30 Last Admin: 09/14/22 02:40 Dose: 1 mg Documented By: REYES Sodium Chloride (Normal Saline 0.9%) 1,000 mls @ 1,000 mls/hr IV BOLUS ONE Stop: 09/14/22 02:06 Last Infusion: 09/14/22 02:28 Dose: 0 mls/hr Documented By: Admin: 09/14/22 01:26 Dose: 1,000 mls/hr Documented By: AKIL Ondansetron HCl (Ondansetron 4 Mg/2 Ml Inj) 4 mg IV NOW ONE Stop: 09/14/22 01:08 Last Admin: 09/14/22 01:27 Dose: 4 mg Documented By: AKIL Pantoprazole Sodium (Pantoprazole 40 Mg Vial) 80 mg IV NOW ONE Stop: 09/14/22 01:10 Vital Signs Vital signs: Vital Signs - 8 hr 09/14/22 01:00 Temperature 97.6 F Pulse Rate 80 Respiratory Rate 18 Blood Pressure 125/86 Pulse Oximetry 97 Oxygen Delivery Method Room Air Medical Decision Making Lab Data 09/14/22 01:15 09/14/22 01:15 Labs: Lab Results 09/14/22 09/14/22 09/14/22 Range/Units 01:15 01:15 02:34 WBC 13.7 H (4.5-11.0) X10^3/uL RBC 4.90 (4.5-5.9) X10^6/uL Hgb 15.1 (13.5-17.5) g/dL Hct 44.7 (41-53) % MCV 91.2 (80-100) fL MCH 30.7 (26-34) PG MCHC 33.7 (30-36) % RDW 14.1 (11.6-14.8) % Plt Count 219 (150-400) X10^3/uL Neut % (Auto) 82.9 H (50-75) % Lymph % (Auto) 10.7 L (25-40) % [place] % (Auto) 5.7 (3-14) % Eos % (Auto) 0.4 L (2-4) % Baso % (Auto) 0.3 (0-2) % Neut # (Auto) 88722 H (7561-2585) /uL Lymph # (Auto) 1500 (1907-3809) /uL [place] # (Auto) 800 (0-900) /uL Eos # (Auto) 100 (0-450) /uL Baso # (Auto) 0 (0-100) /uL Sodium 137 (137-145) mmol/L Potassium 4.3 (3.4-5.1) mmol/L Chloride 99 (98-107) mmol/L Carbon Dioxide 29 (22-32) mmol/L BUN 17 (9-20) mg/dL Creatinine 0.83 (0.66-1.25) mg/dL Estimated GFR > 60 (>60) mL/min BUN/Creatinine Ratio 20.5 (6-22) Glucose 147 H (80-110) mg/dL Calcium 8.7 (8.4-10.2) mg/dL Total Bilirubin 0.8 (0.2-1.3) mg/dL AST 35 (17-59) IU/L ALT 37 (<50) IU/L Alkaline Phosphatase 96 (38-126) U/L Troponin I < 0.012 (0.01-0.034) ng/mL Total Protein 7.4 (6.3-8.2) g/dL Albumin 4.2 (3.5-5.0) g/dL Globulin 3.2 (1.7-4.1) g/dL Albumin/Globulin Ratio 1.3 (1.0-2.8) SARS-CoV-2 (PCR) Negative (Negative) MDM Narrative Medical decision making narrative: CC: Acute onset abdominal pain Complicating co-morbidities: Prior abdominal surgeries with multiple small-bowel obstructions previously Data collected from: patient, Medical records reviewed: Prior notes some distant hospital admissions from 2016 are reviewed Differential considered: Small-bowel obstruction, perforation, appendicitis, diverticulitis, Exam documented above, pertinent findings include: Significant abdominal distention with significant pain. Tympanitic. Lab Test results independently reviewed as above. Pertinent findings: CBC shows mild leukocytosis at 13.7 with a slight left shift at 82.9 CMP is unremarkable Troponin is negative Independently reviewed EKG sinus rhythm at a rate of 64, normal intervals, normal axis. No acute ischemic changes Imaging studies independently reviewed: Distention of small-bowel loops up to 5 cm representing obstruction or ileus. Small-bowel obstruction with probable transition point within the ventral mid abdomen. Note is made of the NG tube needing to be advanced. Consultations: Treatments: Re-evaluations:3:35 NG tube has a scant amount of drainage. Chest x-ray looks like it is stopped just at the distal esophagus. Prior to any more aggressive insertion will review CT scan. With additional trials not able to advance the NG tube past the distal esophagus. The CT scan does not suggest significant abnormalities at the distal esophagus. Will defer NG tube placement to nursing staff on the floor. Discussion: Patient is followed by Dr. Townsend. Dr. Murphy is the admitting physician for Dr. Townsend this evening. We will contact her about admitting this patient. In the meantime, NG tube is placed. The nurse feels like he hit some type of obstruction near the lower esophagus and prior to getting into the stomach. Water that the patient was drinking with the placement comes back up but there is no stomach contents that are draining. Chest x-ray will be ordered. Given this difficulty along with the fact that it has been a number of years since his last bowel obstruction and a white count slightly elevated at 13.7 CT scan of the abdomen is going to be ordered as well. Patient will be admitted for further observation and hopefully. Care is discussed with Dr Sanders. Discharge Plan Departure Patient Disposition: Admitted as Observation Clinical Impression: Small bowel obstruction due to postoperative adhesions Admit Date/Time: 09/14/22 02:39 Admit Provider: Maame Sanders
[2022-09-14] MEDS: HYDROMORPHONE 1 MG INJ IV ×2 (02:40→13:06)
--- NOTE | 2022-09-14 03:07 | DI.RAD.S_ITS ---
PROCEDURE: XR CHEST 1V INDICATIONS: NGT verify TECHNIQUE: One view of the chest was acquired. COMPARISON: None. FINDINGS: Surgical changes and devices: NG tube tip is within the herniated stomach lumen. Lungs and pleura: Left basilar atelectasis adjacent to patient's known hiatal hernia is seen No pleural effusions or pneumothorax. Mediastinum: Mediastinal contours appear normal. Heart size is normal. Large hiatal hernia is noted. Bones and chest wall: No suspicious bony lesions. Overlying soft tissues appear unremarkable. IMPRESSION: Large hiatal hernia. NG tube tip is in the expected location of herniated stomach lumen. Adjacent left basilar atelectasis. No gross pneumothorax. Dictated by: Bang Hill M.D. on 09/14/2022 at 8:46 Approved by: Bang Hill M.D. on 09/14/2022 at 8:53
[2022-09-14 03:09] LABS: COVID19 -Nasal RAPID Negative (Negative)
--- NOTE | 2022-09-14 03:36 | DI.CT.S_ITS ---
PROCEDURE: CT ABDOMEN PELVIS W CON INDICATIONS: SBO, difficulty passing NG tube past distal esophagus TECHNIQUE: After the administration of intravenous contrast, axial sections acquired from the lung bases to the pubic symphysis. Coronal and sagittal reformats were performed. For radiation dose reduction, the following was used: automated exposure control, adjustment of mA and/or kV according to patient size. COMPARISON: None. FINDINGS: Image quality: Excellent. Lung bases: Unremarkable. Heart: No significant findings. ABDOMEN: Liver: Unremarkable. Gallbladder: Unremarkable. Biliary ducts: Unremarkable. Pancreas: Unremarkable. Spleen: Unremarkable. Adrenal Glands: Unremarkable. Kidneys and Ureters: Unremarkable. Stomach and Bowel: Large hiatal hernia. Small-bowel obstruction, with a transition point in the mid abdomen (series 2, image 45). There is fecalization of small bowel contents. The bowel distal to the transition point is mildly decompressed, favoring a low-grade obstruction. Mild mesenteric edema. Bowel wall demonstrates enhancement. Peritoneum: Small volume free fluid. No free air. Coarse calcifications in the deep pelvis, presumably infarcted peritoneal fat. Ventral Wall: Ventral wall hernia containing a knuckle of nonobstructed large bowel (5/43) Abdominal Nodes: No retroperitoneal or mesenteric adenopathy by size criteria. Vessels: Aorta and inferior vena cava are normal in size. PELVIS: Pelvic Organs: Unremarkable. Bladder: Unremarkable. Pelvic Nodes: No enlarged lymph nodes. Miscellaneous: No hernias are seen. Bones: Grade 1 anterolisthesis of L5 on S1 secondary to pars defects.. IMPRESSION: Low-grade, partial small bowel obstruction with the transition point in the mid abdomen. Fecalized bowel content, but bowel distal to the transition point still contain some fluid. Large hiatal hernia. Agree with preliminary report. Dictated by: Kyle Hogan M.D. on 09/14/2022 at 7:52 Approved by: Kyle Hogan M.D. on 09/14/2022 at 8:00
[2022-09-14 05:05] VITALS: BMI 29.5
[2022-09-14] MEDS: SODIUM CHLORIDE 0.9% 1,000 ML 150 ML IV (05:21)
--- NOTE | 2022-09-14 06:35 | DI.RAD.S_ITS ---
PROCEDURE: XR CHEST 1V INDICATIONS: confirm NG Tube placement TECHNIQUE: One view of the chest was acquired. COMPARISON: [facility], CR, XR CHEST 1V, 09/14/2022, 3:25. FINDINGS: Surgical changes and devices: NG tube is now coiled in the distal esophagus with the tip oriented superiorly within proximal esophageal lumen should be with Lungs and pleura: Left lower lobe atelectasis adjacent to patient's known large hiatal hernia is seen. Mild pulmonary vascular congestion is also noted. No pleural effusions or pneumothorax. Mediastinum: Mediastinal contours appear normal. Heart size is normal. Large hiatal hernia is again seen. Bones and chest wall: No suspicious bony lesions. Overlying soft tissues appear unremarkable. IMPRESSION: NG tube is coiled in the esophageal lumen and should be portal and repositioned. Large hiatal hernia and adjacent left basilar atelectasis. Mild pulmonary vascular congestion. No definite focal infiltrate. No pneumothorax. Dictated by: Bang Hill M.D. on 09/14/2022 at 8:59 Approved by: Bang Hill M.D. on 09/14/2022 at 9:00
[2022-09-14 08:59] VITALS: BP 143/96; PULSE 83; RESP 17; TEMP 36.7; O2SAT 98
[2022-09-14] MEDS: SODIUM CHLORIDE 0.9% 1,000 ML 125 ML IV ×2 (11:54→21:36)
--- NOTE | 2022-09-14 12:29 | PM.CN ---
History of Present Illness Consult details Date Patient Seen: 09/14/22 Time Patient Seen: 12:29 Chief complaint: BOWEL OBSTRUCTION Narrative: The patient is a 66 year old man with an extensive surgical history involving a hiatal hernia repair followed by multiple ventral hernia repairs with mesh. He has had multiple small bowel obstructions which have resolved with nasogastric decompression alone. He presented overnight with 1 day of abdominal pain, distension and no bowel function. Multiple attempts to place and NG tube in the ER were unsuccessful. Meds Home Medications and Allergies Home Medications Medication Instructions Recorded Confirmed Type gabapentin 100 mg capsule 600 mg PO TID ##0 04/16/16 10/28/21 History amlodipine 5 mg tablet 5 mg PO BEDTIME 01/17/19 10/28/21 History duloxetine 20 mg capsule,delayed 30 mg PO BEDTIME 01/17/19 10/28/21 History release hydrocodone 5 mg-acetaminophen 325 1 - 2 tab PO Q6H PRN Pain (Scale 05/13/20 10/28/21 History mg tablet Score 4-6) methocarbamol 500 mg tablet 1,000 mg PO QID PRN Spasms ##0 05/13/20 10/28/21 History omeprazole 20 mg capsule,delayed 20 mg PO DAILY Ulcer #30 caps 05/13/20 10/28/21 Rx release ascorbic acid (vitamin C) 1,000 mg 1,000 mg PO Q12H 07/21/21 10/28/21 History tablet,extended release nabumetone 500 mg tablet 500 mg PO BID 07/21/21 10/28/21 History pravastatin 40 mg tablet 40 mg PO BEDTIME 07/21/21 10/28/21 History psyllium husk 3.4 gram/5.4 gram 1 tbsp PO DAILY 07/21/21 10/28/21 History oral powder (Metamucil) tamsulosin 0.4 mg capsule 0.4 mg PO BEDTIME #90 caps 07/21/21 10/28/21 Rx bicalutamide 50 mg tablet (Casodex) 50 mg PO DAILY #30 tabs 10/28/21 10/28/21 Rx Allergies Allergy/AdvReac Type Severity Reaction Status Date / Time morphine AdvReac Severe Cramping Verified 10/28/21 15:35 Exam Vital Signs (past 8 hours): - 09/14/22 05:05 09/14/22 08:59 Temperature 98.1 F Pulse Rate 83 Respiratory Rate 17 Blood Pressure 143/96 H Pulse Oximetry 98 Oxygen Delivery Method Room Air Oxygen Flow Rate 0 Oxygen Delivery Method Room Air Oxygen Flow Rate 0 Narrative Exam Narrative: Abdomen is severely distended and tender Midline scar Objective Labs 09/14/22 01:15 09/14/22 01:15 Labs: Laboratory Results - last 24 hr 09/14/22 09/14/22 09/14/22 01:15 01:15 02:34 WBC 13.7 H RBC 4.90 Hgb 15.1 Hct 44.7 MCV 91.2 MCH 30.7 MCHC 33.7 RDW 14.1 Plt Count 219 Neut % (Auto) 82.9 H Lymph % (Auto) 10.7 L [place] % (Auto) 5.7 Eos % (Auto) 0.4 L Baso % (Auto) 0.3 Neut # (Auto) 99163 H Lymph # (Auto) 1500 [place] # (Auto) 800 Eos # (Auto) 100 Baso # (Auto) 0 Sodium 137 Potassium 4.3 Chloride 99 Carbon Dioxide 29 BUN 17 Creatinine 0.83 Estimated GFR > 60 BUN/Creatinine Ratio 20.5 Glucose 147 H Calcium 8.7 Total Bilirubin 0.8 AST 35 ALT 37 Alkaline Phosphatase 96 Troponin I < 0.012 Total Protein 7.4 Albumin 4.2 Globulin 3.2 Albumin/Globulin Ratio 1.3 SARS-CoV-2 (PCR) Negative [facility] Medical History Anemia Cervical spinal stenosis Depression Diverticula of colon Elevated PSA Enlarged prostate Family history of prostate cancer HLD (hyperlipidemia) HTN (hypertension) Lower urinary tract symptoms (LUTS) Osteoarthritis Prostate cancer SCC (squamous cell carcinoma) (~10/2018) Small bowel obstruction (~03/2016) Surgical History H/O vasectomy Hx of abdominal surgery Hx of tonsillectomy Family History Father Hyperlipidemia Hypertension Mother Hyperlipidemia Hypertension UTI symptoms Grandmother FH: CVA (cerebrovascular accident) Social History marital status: number of children: 3 household members: spouse occupational status: previously employed Tobacco & Substance Use Smoking Status: Former smoker alcohol intake: current substance use type: does not use Assessment & Plan Assessment and plan (1) Small bowel obstruction due to postoperative adhesions: Status: Acute Plan 66 year old man with a recurrent small bowel obstruction. Multipe attempts to place an NG tube, including by me, have been unsuccessful. He is very distended and uncomfortable. Any attempt to decompress his upper GI tract without surgery will be made. Will contact radiology and ask if they can place a gastrostomy tube directly into the stomach through the abdominal wall.
--- NOTE | 2022-09-14 12:38 | DI.RAD.S_ITS ---
PROCEDURE: FL FLUOROSCOPY >1HR COMPARISON: None. INDICATIONS: NG tube placement, pre-pyloric FINDINGS: Fluoroscopic guidance utilized for a feeding tube placement. The tip terminated over the gastroesophageal junction, and could not be advanced further due to coiling within the hypopharynx. IMPRESSION: Fluoroscopic guidance utilized for a gastric tube placement. The tip terminated over the gastroesophageal junction. Dictated by: Kyle Hogan M.D. on 09/15/2022 at 11:57 Approved by: Kyle Hogan M.D. on 09/15/2022 at 11:58
[2022-09-14 13:00] VITALS: BP 131/67; PULSE 84; RESP 17; TEMP 36.3; O2SAT 98
[2022-09-14] MEDS: LIDOCAINE JELLY 2% 5 ML 1 APPLIC TOP (13:05)
[2022-09-14] MEDS: TETRACAINE/BENZOCAINE/BUTAMBEN (CETACAINE) BOTTLE 1 SPRAY TOP (13:05)
[2022-09-14] MEDS: PANTOPRAZOLE 40 MG VIAL 20 MG IV (13:07)
--- NOTE | 2022-09-14 13:35 | PM.HP.1 ---
History of Present Illness History of Present Illness Date Patient Seen: 09/14/22 Time Patient Seen: 13:35 Date of Onset of Symptoms: 09/12/22 Chief complaint: BOWEL OBSTRUCTION Narrative: Patient is a 66-year-old male well known to me with history of small-bowel obstruction who presents with 24 hour increasing pain and distention. Some flatus. But no other changes. Some nausea but no vomiting. Has been really only the last few days. But otherwise no changes. Patient has had multiple surgeries abdominal with mesh placed. Had a large hernia repair which included most of his entire abdomen at the [facility]. Many years ago. No other significant change. He is had no fevers chills. Pain has been all central with no radiation. Just feeling very distended. No better today. Attempted NG tube last night but was unable to get placed. Otherwise no significant change or complaint. Patient has had no blood in his stool black or tarry stools really no stool passing lately. No urinary complaints no chest pain shortness breast nausea vomiting heartburn has not had any change in his diet. No headaches no visual changes. [facility] Medical History Anemia Cervical spinal stenosis Depression Diverticula of colon Elevated PSA Enlarged prostate Family history of prostate cancer HLD (hyperlipidemia) HTN (hypertension) Lower urinary tract symptoms (LUTS) Osteoarthritis Prostate cancer SCC (squamous cell carcinoma) (~10/2018) Small bowel obstruction (~03/2016) Surgical History H/O vasectomy Hx of abdominal surgery Hx of tonsillectomy Family History Father Hyperlipidemia Hypertension Mother Hyperlipidemia Hypertension UTI symptoms Grandmother FH: CVA (cerebrovascular accident) Social History marital status: number of children: 3 household members: spouse occupational status: previously employed Smoking Status: Former smoker alcohol intake: current substance use type: does not use Meds Home Medications and Allergies Home Medications Medication Instructions Recorded Confirmed Type gabapentin 100 mg capsule 600 mg PO TID ##0 04/16/16 10/28/21 History amlodipine 5 mg tablet 5 mg PO BEDTIME 01/17/19 10/28/21 History duloxetine 20 mg capsule,delayed 30 mg PO BEDTIME 01/17/19 10/28/21 History release hydrocodone 5 mg-acetaminophen 325 1 - 2 tab PO Q6H PRN Pain (Scale 05/13/20 10/28/21 History mg tablet Score 4-6) methocarbamol 500 mg tablet 1,000 mg PO QID PRN Spasms ##0 05/13/20 10/28/21 History omeprazole 20 mg capsule,delayed 20 mg PO DAILY Ulcer #30 caps 05/13/20 10/28/21 Rx release ascorbic acid (vitamin C) 1,000 mg 1,000 mg PO Q12H 07/21/21 10/28/21 History tablet,extended release nabumetone 500 mg tablet 500 mg PO BID 07/21/21 10/28/21 History pravastatin 40 mg tablet 40 mg PO BEDTIME 07/21/21 10/28/21 History psyllium husk 3.4 gram/5.4 gram 1 tbsp PO DAILY 07/21/21 10/28/21 History oral powder (Metamucil) tamsulosin 0.4 mg capsule 0.4 mg PO BEDTIME #90 caps 07/21/21 10/28/21 Rx bicalutamide 50 mg tablet (Casodex) 50 mg PO DAILY #30 tabs 10/28/21 10/28/21 Rx Allergies Allergy/AdvReac Type Severity Reaction Status Date / Time morphine AdvReac Severe Cramping Verified 10/28/21 15:35 Review of Systems Review of Systems Narrative: See above Exam Vital Signs (past 8 hours): - 09/14/22 08:59 09/14/22 13:00 Temperature 98.1 F 97.3 F L Pulse Rate 83 84 Respiratory Rate 17 17 Blood Pressure 143/96 H 131/67 Pulse Oximetry 98 98 Oxygen Flow Rate 0 0 Oxygen Delivery Method Room Air Oxygen Flow Rate 0 Narrative Exam Narrative: Alert male sitting in bed mildly uncomfortable. Mucous membranes mildly dry neck supple without adenopathy lungs are clear heart is regular rate and rhythm abdomen with decreased bowel sounds markedly distended tympanic moderate tenderness no rebound or guarding extremities without cyanosis clubbing edema. Neurologic exam is nonfocal Objective Labs 09/14/22 01:15 09/14/22 01:15 Labs: Laboratory Results - last 24 hr 09/14/22 09/14/22 09/14/22 01:15 01:15 02:34 WBC 13.7 H RBC 4.90 Hgb 15.1 Hct 44.7 MCV 91.2 MCH 30.7 MCHC 33.7 RDW 14.1 Plt Count 219 Neut % (Auto) 82.9 H Lymph % (Auto) 10.7 L [place] % (Auto) 5.7 Eos % (Auto) 0.4 L Baso % (Auto) 0.3 Neut # (Auto) 77322 H Lymph # (Auto) 1500 [place] # (Auto) 800 Eos # (Auto) 100 Baso # (Auto) 0 Sodium 137 Potassium 4.3 Chloride 99 Carbon Dioxide 29 BUN 17 Creatinine 0.83 Estimated GFR > 60 BUN/Creatinine Ratio 20.5 Glucose 147 H Calcium 8.7 Total Bilirubin 0.8 AST 35 ALT 37 Alkaline Phosphatase 96 Troponin I < 0.012 Total Protein 7.4 Albumin 4.2 Globulin 3.2 Albumin/Globulin Ratio 1.3 SARS-CoV-2 (PCR) Negative Assessment & Plan Assessment & Plan narrative: Small-bowel obstruction. Unable to get nasal gastric tube. Consulted surgeons and greatly appreciate their presence. They recommend G-tube placement for decompression. After aggressive attempts at NG tube placement. Hopefully this works. Does not appear to be infected. Certainly not surgical at this time but if can not decompressed may have to consider that alternative. Could be very difficult surgery secondary to his current mesh situation. They understand. Questions answered. Attempted G-tube placement later this afternoon. Dehydration. Will hydrate. Patient will be NPO for a while. Will see how things go. Hopefully things turned around pretty quickly once we start decompressing. Hypertension. Will hold medicines but follow. No other changes. We may need to consider IV beta-blockers or hydralazine depending on how things go. Will see what his pressure does. Hyperlipidemia stable no impact at this time. Depression. Currently doing well. Has been slowly getting a little worse but no change and I think we are safe at this time will follow Code status full GI prophylaxis will place on pantoprazole. Disposition. May need to consider transfer if we can not get this deep compressed. Will see how it goes. Certainly if surgery is required will have to have a long discussion. He understands will be here multiple days. 50 minutes spent with patient with consults crosscover orders and dictation Quality VTE Deep Vein Thrombosis/Pulmonary Embolism Present on Admission: No
--- NOTE | 2022-09-14 13:39 | PC.NURSE ---
Addendum entered by Ida Carrillo R.N. 09/14/22 15:41: Patient brought down to CT and they were able to get a 14f NG tube down his r.nares. Area taped and he has had 450cc of green/brown bile out in suction canister. Set to lis. Original Note: Unable to get NG tube down after attempting several times by this RN and . He has ordered a gtube placement under fluoroscopy to be done around 1430. Patient will be taken in a wheelchair to procedure. He has been medicated with 0.5mg of iv dilaudid before attempting NG tube placement, this was slightly helpful for discomfort. He was also medicated around 1215 with 1mg of iv dilaudid that was more effective for pain. was unable to get NG tube down at that time. Patient has been resting comfortably now.
--- NOTE | 2022-09-14 13:53 | CM.DANOTE ---
Discharge Planning/Care Management CM Discharge Assessment Start: 09/14/22 13:41 Freq: Status: Active Protocol: Document 09/14/22 13:41 YOLI (Rec: 09/14/22 13:52 YOLI [id number]) Discharge Planning Assessment Assigned Bus Person Dishwasher AMANDA Damian DPOA/Assigned Designee Name Donna Luo, spouse Contact Information [phone] Advance Directives? Yes: Advanced Directive History Provided By Patient,Medical Record Prior Living Arrangements House Household Members spouse Type of transporation used prior to Drives own vehicle admit Independent with ADL's Yes Is patient alert and oriented? Yes Barriers to Discharge No Comment 66 yo male, arrives w/abd pain - hx of multiple abd surgeries, hx of SBO each successfully treated with NG tube and supportive care. Multiple attempts to place NG tube in the ER at at bedside by Dr Delatorre, all unsuccessful. Patient very uncomfortable. Dr Delatorre in contact w/ radiology to discuss gastrostomy tube directly into the stomach through the abdominal wall. CM team will plan to follow closely as medical POC unfolds , patient not feeling well today. Likely home w/spouse and no needs from this CM team upon discharge, but will plan to follow closely JW Discharge Plan Home Transportation Arrangement Spouse Referrals Initiated None needed
[2022-09-14 14:53] VITALS: BP 152/82; PULSE 77; RESP 17; TEMP 36.2; O2SAT 98
[2022-09-14 16:00] VITALS: BP 125/62; PULSE 83; RESP 17; TEMP 36.2; O2SAT 98
[2022-09-14 19:00] VITALS: BP 126/65; PULSE 67; RESP 17; TEMP 36.7; O2SAT 92
[2022-09-15 05:46] LABS: Add Manual Diff / Slide Review NO; Basophils Absolute Auto 0 /uL (0-100); Basophils Percent Auto 0.3 % (0-2); Eosinophils Absolute Auto 100 /uL (0-450); Eosinophils Percent Auto 1.2 % (2-4); Hematocrit 36.3 % (41-53); Hemoglobin 12.6 g/dL (13.5-17.5); Lymphocytes Absolute Auto 700 /uL (1100-4500); Lymphocytes Percent Auto 11.1 % (25-40); Mean Corpuscular HGB Conc 34.8 % (30-36); Mean Corpuscular Hemoglobin 31.7 PG (26-34); Mean Corpuscular Volume 91.2 fL (80-100); Monocytes Absolute Auto 600 /uL (0-900); Neutrophils Absolute Auto 5200 /uL (1500-7000); Neutrophils Percent Auto 78.4 % (50-75); Platelet Count 147 X10^3/uL (150-400); Red Blood Cell Count 3.98 X10^6/uL (4.5-5.9); Red Cell Distribution Width 14.1 % (11.6-14.8); White Blood Cell Count 6.6 X10^3/uL (4.5-11.0)
[2022-09-15] MEDS: SODIUM CHLORIDE 0.9% 1,000 ML 125 ML IV ×2 (06:03→16:48)
[2022-09-15 06:07] LABS: Alanine Aminotransferase 25 IU/L (<50); Albumin 3.3 g/dL (3.5-5.0); Albumin Globulin Ratio 1.3 (1.0-2.8); Alkaline Phosphatase 73 U/L (38-126); Aspartate Aminotransferase 26 IU/L (17-59); BUN Creatinine Ratio 19.1 (6-22); Bilirubin Total 0.6 mg/dL (0.2-1.3); Blood Urea Nitrogen 13 mg/dL (9-20); Calcium 8.1 mg/dL (8.4-10.2); Carbon Dioxide 27 mmol/L (22-32); Chloride 107 mmol/L (98-107); Estimated Glomerular Filt Rate > 60 mL/min (>60); Globulin 2.6 g/dL (1.7-4.1); Glucose 100 mg/dL (80-110); HEMOLYSIS < 15 (0-50); Potassium 3.7 mmol/L (3.4-5.1); Sodium 138 mmol/L (137-145); Total Protein 5.9 g/dL (6.3-8.2)
[2022-09-15 07:00] VITALS: BP 131/69; PULSE 61; RESP 18; O2SAT 100
[2022-09-15 07:30] VITALS: O2SAT 95
[2022-09-15] MEDS: PANTOPRAZOLE 40 MG VIAL 20 MG IV (11:05)
[2022-09-15] MEDS: ENOXAPARIN 40 MG/0.4 ML SYRINGE SUBCUT (11:05)
--- NOTE | 2022-09-15 13:05 | PM.PN.1 ---
Subjective Subjective Date Patient Seen: 09/15/22 Time Patient Seen: 13:06 Interval history: Patient seen in follow-up of small-bowel obstruction dehydration. Overall feeling much better. Had large bowel movement x3. Is feeling quite a bit better. Less pain. Apparently surgeon discontinued his NG tube without any other changes. Exam Vital Signs (past 8 hours): - 09/15/22 07:00 09/15/22 07:30 09/15/22 07:30 Pulse Rate 61 Respiratory Rate 18 Blood Pressure 131/69 Pulse Oximetry 100 95 Oxygen Delivery Method Room Air Room Air Oxygen Delivery Method Room Air Oxygen Flow Rate 0 Narrative Exam Narrative: Alert male smiling in no acute distress lungs are clear heart regular rate and rhythm abdomen is less distended less tense and minimally tender Objective Labs 09/15/22 05:25 09/15/22 05:25 Labs: Laboratory Results - last 24 hr 09/15/22 09/15/22 05:25 05:25 WBC 6.6 D RBC 3.98 L Hgb 12.6 L Hct 36.3 L MCV 91.2 MCH 31.7 MCHC 34.8 RDW 14.1 Plt Count 147 L Neut % (Auto) 78.4 H Lymph % (Auto) 11.1 L [place] % (Auto) 9.0 Eos % (Auto) 1.2 L Baso % (Auto) 0.3 Neut # (Auto) 5200 Lymph # (Auto) 700 L [place] # (Auto) 600 Eos # (Auto) 100 Baso # (Auto) 0 Sodium 138 Potassium 3.7 Chloride 107 Carbon Dioxide 27 BUN 13 Creatinine 0.68 Estimated GFR > 60 BUN/Creatinine Ratio 19.1 Glucose 100 Calcium 8.1 L Total Bilirubin 0.6 AST 26 ALT 25 Alkaline Phosphatase 73 Total Protein 5.9 L Albumin 3.3 L Globulin 2.6 Albumin/Globulin Ratio 1.3 PFSH Medical History Anemia Cervical spinal stenosis Depression Diverticula of colon Elevated PSA Enlarged prostate Family history of prostate cancer HLD (hyperlipidemia) HTN (hypertension) Lower urinary tract symptoms (LUTS) Osteoarthritis Prostate cancer SCC (squamous cell carcinoma) (~10/2018) Small bowel obstruction (~03/2016) Surgical History H/O vasectomy Hx of abdominal surgery Hx of tonsillectomy Family History Father Hyperlipidemia Hypertension Mother Hyperlipidemia Hypertension UTI symptoms Grandmother FH: CVA (cerebrovascular accident) Social History marital status: number of children: 3 household members: spouse occupational status: previously employed Smoking Status: Former smoker alcohol intake: current substance use type: does not use Assessment & Plan Assessment & Plan narrative: Small-bowel obstruction. Much improved. Apparently surgeon discontinued NG tube and is thinking of feeding later today. If that is true we can begin oral medicines tomorrow morning. Usual. Expect home tomorrow. Will see how things go. Dehydration. Continue hydration not hurting him at this point. Will discontinue taking fully oral. Hypertension. Stable at this time. Restart medicines probably tomorrow. Depression doing well no issues at this time start medicines tomorrow. Code status full. GI prophylaxis on pantoprazole. Probably can stop on discharge. Disposition. If things continue on this course expect discharge tomorrow Quality VTE Deep Vein Thrombosis/Pulmonary Embolism Present on Admission: No
--- NOTE | 2022-09-15 15:00 | P.PN_ITS ---
Subjective Subjective Date Patient Seen: 09/15/22 Interval history: Radiology was able to place an NG-tube with fluoroscopy assistance yesterday. After placement of the tube he had significant output and soon started passing flatus and bowel movements. He feels much better overall today. Exam Vital Signs (past 8 hours): - 09/15/22 07:30 09/15/22 07:30 Pulse Oximetry 95 Oxygen Delivery Method Room Air Room Air Oxygen Delivery Method Room Air Oxygen Flow Rate 0 Narrative Exam Narrative: Less distention of the abdomen No peritoneal findings Objective Labs 09/15/22 05:25 09/15/22 05:25 Labs: Laboratory Results - last 24 hr 09/15/22 09/15/22 05:25 05:25 WBC 6.6 D RBC 3.98 L Hgb 12.6 L Hct 36.3 L MCV 91.2 MCH 31.7 MCHC 34.8 RDW 14.1 Plt Count 147 L Neut % (Auto) 78.4 H Lymph % (Auto) 11.1 L [place] % (Auto) 9.0 Eos % (Auto) 1.2 L Baso % (Auto) 0.3 Neut # (Auto) 5200 Lymph # (Auto) 700 L [place] # (Auto) 600 Eos # (Auto) 100 Baso # (Auto) 0 Sodium 138 Potassium 3.7 Chloride 107 Carbon Dioxide 27 BUN 13 Creatinine 0.68 Estimated GFR > 60 BUN/Creatinine Ratio 19.1 Glucose 100 Calcium 8.1 L Total Bilirubin 0.6 AST 26 ALT 25 Alkaline Phosphatase 73 Total Protein 5.9 L Albumin 3.3 L Globulin 2.6 Albumin/Globulin Ratio 1.3 PFSH Medical History Anemia Cervical spinal stenosis Depression Diverticula of colon Elevated PSA Enlarged prostate Family history of prostate cancer HLD (hyperlipidemia) HTN (hypertension) Lower urinary tract symptoms (LUTS) Osteoarthritis Prostate cancer SCC (squamous cell carcinoma) (~10/2018) Small bowel obstruction (~03/2016) Surgical History H/O vasectomy Hx of abdominal surgery Hx of tonsillectomy Family History Father Hyperlipidemia Hypertension Mother Hyperlipidemia Hypertension UTI symptoms Grandmother FH: CVA (cerebrovascular accident) Social History marital status: number of children: 3 household members: spouse occupational status: previously employed Smoking Status: Former smoker alcohol intake: current substance use type: does not use Assessment & Plan Assessment and plan (1) Small bowel obstruction due to postoperative adhesions: Status: Acute Plan Although he is having good bowel function and normally I would remove the NG tube, because it was so difficult to place I recommend a clamp trial. He can have clear liquids tonight and if he feels well in the morning we can remove the NG tube and feed him regular diet. He can go home tomorrow if he tolerates a regular diet. Quality VTE Deep Vein Thrombosis/Pulmonary Embolism Present on Admission: No
[2022-09-15 19:00] VITALS: BP 126/70; PULSE 63; RESP 18; TEMP 36.9; O2SAT 97
[2022-09-15] MEDS: ACETAMINOPHEN 325 MG TABLET 650 MG PO (20:03)
[2022-09-15 20:18] VITALS: O2SAT 95
[2022-09-16 07:00] VITALS: O2SAT 99
[2022-09-16] MEDS: ACETAMINOPHEN 325 MG TABLET 650 MG PO (07:57)
[2022-09-16] MEDS: PANTOPRAZOLE 40 MG VIAL 20 MG IV (07:57)
[2022-09-16] MEDS: ENOXAPARIN 40 MG/0.4 ML SYRINGE SUBCUT (07:58)
[2022-09-16 08:00] VITALS: BP 123/64; PULSE 56; RESP 17; TEMP 36.8; O2SAT 99
--- NOTE | 2022-09-16 08:39 | PM.PN.1 ---
Subjective Subjective Date Patient Seen: 09/16/22 Time Patient Seen: 08:39 Interval history: Patient is new to me and seen in cross cover for Dr. Townsend. Reviewed history and met with patient. Patient had bowel movement last night and watery stool yesterday x2. He is tolerating clears. He is not having any nausea and no vomiting. He is having slight abdominal pain No chest pain or shortness of breath 12 point review of systems is otherwise negative Exam Vital Signs (past 8 hours): Oxygen Delivery Method Room Air Oxygen Flow Rate 0 Narrative Exam Narrative: AF, VSS HEENT with NG tube in place Alert and oriented x3 Neck: Supple Chest: Clear to auscultation without wheezes rhonchi or crackles Cor: Regular rate and rhythm without a murmur Abdomen: Positive bowel sounds upper quadrant. Mild tenderness right upper quadrant. Slightly distended. No guarding. No rebound Extremities: No edema, pulses intact Objective Labs 09/15/22 05:25 09/15/22 05:25 PFSH Medical History Anemia Cervical spinal stenosis Depression Diverticula of colon Elevated PSA Enlarged prostate Family history of prostate cancer HLD (hyperlipidemia) HTN (hypertension) Lower urinary tract symptoms (LUTS) Osteoarthritis Prostate cancer SCC (squamous cell carcinoma) (~10/2018) Small bowel obstruction (~03/2016) Surgical History H/O vasectomy Hx of abdominal surgery Hx of tonsillectomy Family History Father Hyperlipidemia Hypertension Mother Hyperlipidemia Hypertension UTI symptoms Grandmother FH: CVA (cerebrovascular accident) Social History marital status: number of children: 3 household members: spouse occupational status: previously employed Smoking Status: Former smoker alcohol intake: current substance use type: does not use Assessment & Plan Assessment & Plan narrative: 66-year-old male admitted for small-bowel obstruction with multiple episodes in the past. History of multiple abdominal surgeries. Seems to be improving. Plan: Will await surgery evaluation. I suspect that as long as patient remains stable over the day that we can remove his NG tube and sent him home. Patient is medically stable to go home from my perspective Assessment 2. History of prostate cancer. No current issues Assessment 3. Hypertension: Well-controlled Plan: Continue outpatient medications Assessment 4. Hyperlipidemia Plan: Continue pravastatin Assessment 5. Dehydration improved Assessment 6. GI prophylaxis Plan: Continue with PPI and will discharge at discharge 50 minute spent with patient reviewing chart, meeting with patient, discussing with nursing, formulating plan and documentation Quality VTE Deep Vein Thrombosis/Pulmonary Embolism Present on Admission: No
[2022-09-16 11:00] VITALS: BP 131/60; PULSE 56; RESP 17; TEMP 36.2; O2SAT 98
--- NOTE | 2022-09-16 11:16 | CM.DPNOTE ---
DCP Note 66-year-old male admitted for small-bowel obstruction. According to Dr Wahl- Plan: Will await surgery evaluation. I suspect that as long as patient remains stable over the day that we can remove his NG tube and sent him home. Patient is medically stable to go home from my perspective Discharge plan remains home w/spouse and close outpatient follow up. No CM team needs identified at this time JW
--- NOTE | 2022-09-16 15:21 | PC.NURSE ---
Per Dr. Sims, diet advanced and NG tube removed once pt tolerating general diet. Dr. Delatorre called to check up on pt, stating he was adequate for d/c and to follow up with Dr. Townsend's office for discharge order. This nurse discussed discharge with Dr. Wahl who gave the verbal order for d/c with no change to medications and to follow up with Dr. Townsend within 1 week. Pt discharged home at 1530, escorted off floor in wheelchair accompanied by significant other and hospital staff. IV removed, discharge teaching completed including follow up appointments and worsening symptoms. Questions answered and concerns addressed. All belongings left with patient.
== END 2022-09-16 15:36 | disposition home or self-care (01) | DRG 390 ==
LOC: ED 01:07 → AC 03:34
PROVIDERS: Admitting Provider Family Medicine; Emergency Provider Emergency Medicine; Family Provider Family Medicine; PCP Family Medicine; Visit Provider Family Medicine
DX: K91.30 Postprocedural intestinal obstruction, unspecified as to partial versus complete (principal); E86.0 Dehydration; I10 Essential (primary) hypertension; E78.5 Hyperlipidemia, unspecified; Z87.891 Personal history of nicotine dependence; Z20.822 Contact with and (suspected) exposure to COVID-19
CPT/HCPCS: 36415; 71045; 74018; 74177; 76000; 80053; 84484; 85025; 87635; 93005; 93010; 96361; 96374; 96375; 99221; 99231; 99284; C9803; C9113; J1170; J1650; J2405; Q9967

== ENCOUNTER → 2023-07-29 18:35 | Outpatient (CLI) | payer MEDICARE, OTHER, SELFPAY ==
--- NOTE | 2023-07-29 | DI.MRI.S_ITS ---
PROCEDURE: MR CERVICAL SPINE WO CON INDICATIONS: Radiculopathy, cervical region TECHNIQUE: Noncontrast sagittal T1 spin echo and T2 fast spin echo, sagittal STIR, foraminal oblique sagittal T2 fast spin echo, and axial gradient echo or T2 fast spin echo through the cervical spine. COMPARISON: [facility], MR, C-SPINE WITHOUT CONTRAST, 12/12/2015, 7:44. [facility], MR, MR CERVICAL SPINE WO CON, 05/09/2021, 15:23. [facility], MR, C-SPINE WITHOUT CONTRAST, 06/19/2014, 19:00. FINDINGS: Image quality: Excellent. Alignment and Curvature: There is minimal retrolisthesis seen at the C3-C4 level. Bone Marrow: Marrow demonstrates normal overall signal. Spinal Cord: Visualized spinal cord has normal size and signal. No cerebellar tonsillar herniation. Paraspinous Soft Tissues: No paravertebral masses. Prevertebral soft tissues are normal in thickness. C2-C3: The disc height and disk signal are well-preserved. A mild degree of generalized disc osteophyte complex is seen. Mild facet joint hypertrophy is seen. Mild bilateral neural foraminal narrowing is seen. No central canal narrowing is seen. The degrees of neural foraminal narrowing are mildly progressed compared to 2020. C3-C4: Mild loss of disc height is seen. Loss of disc signal is seen. Moderate generalized disc osteophyte complex is seen. There is at least moderate right-sided and moderate left-sided facet hypertrophy. There is moderate to severe bilateral neural foraminal narrowing. Minimal central canal narrowing is seen. These imaging findings have progressed compared to the prior study. C4-C5: The disc height is well-preserved. Loss of disc signal is seen at this level. Moderate generalized disc osteophyte complex is seen. At least moderate facet hypertrophy can be seen. There is moderate to severe bilateral neural foraminal narrowing, right worse than left. Minimal central canal narrowing is seen. These imaging findings have progressed compared to the prior study. C5-C6: Moderate to severe loss of disc height and disc signal can be seen. Moderate disc osteophyte complex is seen, which is eccentric to the left. There is moderate right-sided and at least moderate left-sided facet hypertrophy. There is moderate to severe left-sided and moderate right-sided neural foraminal narrowing. Mild central canal narrowing is seen. There is minimal mass effect seen upon the ventral spinal cord. There is slight progression of degenerative change compared to the prior. C6-C7: Moderate loss of disc height is seen. Loss of disc signal is seen. Moderate generalized disc osteophyte complex is seen. Moderate facet there is moderate to severe right-sided and moderate left-sided neural foraminal narrowing. Mild to moderate central canal narrowing is seen, with minimal mass effect upon the ventral spinal cord. There is minimal progression of degenerative change compared to the prior. C7-T1: Mild loss of disc height is seen. Loss of disc signal is seen. A mild degree of generalized disc osteophyte complex is seen. Mild facet joint hypertrophy is seen. No significant neural foraminal or central canal narrowing can be seen. When comparison is made with the prior images, these findings are similar. IMPRESSION: Multiple levels of cervical spine degenerative change are seen, which are overall mildly progressed compared to 2020. Dictated by: Tre Taylor M.D. on 08/01/2023 at 11:00 Approved by: Tre Taylor M.D. on 08/01/2023 at 11:06
== END ==
PROVIDERS: Family Provider Family Medicine; PCP Family Medicine; Referring Provider Anesthesiology Pain Medicine; Visit Provider Anesthesiology Pain Medicine
DX: M47.22 Other spondylosis with radiculopathy, cervical region (principal)
CPT/HCPCS: 72141

== ENCOUNTER → 2023-08-19 09:14 | Outpatient (CLI) | payer MEDICARE, OTHER, SELFPAY ==
--- NOTE | 2023-08-19 09:18 | DI.RAD.S_ITS ---
PROCEDURE: XR WRIST RT MIN 3V INDICATIONS: Intervertebral disc disorders with radiculopathy, lumbar reg TECHNIQUE: 3 views of the wrist were acquired. COMPARISON: None. FINDINGS: Bones: No acute fractures or dislocations. No suspicious bony lesions. Moderate severe joint space narrowing is seen at the 1st carpometacarpal and triscaphe joints. Degenerative changes are also seen at the first metacarpophalangeal joint, capitolunate articulation, and radiocarpal articulation. Soft tissues: No suspicious soft tissue calcifications. IMPRESSION: Moderate to severe osteoarthrosis at the 1st carpometacarpal joint, triscaphe joint, and capitolunate articulation. Scattered mild to moderate degenerative changes. Approved by: Osmin Kearns M.D. on 08/19/2023 at 12:11
--- NOTE | 2023-08-19 09:19 | DI.RAD.S_ITS ---
PROCEDURE: XR SHOULDER RT MIN 2V INDICATIONS: Intervertebral disc disorders with radiculopathy, lumbar reg TECHNIQUE: Three views of the shoulder were acquired. COMPARISON: None. FINDINGS: Bones: No fractures or dislocations. No suspicious bony lesions. Visualized ribs appear intact. Moderate degenerative changes are seen at the acromioclavicular joint. There is mild marginal osteophyte formation at the glenohumeral joint. Soft tissues: Calcifications are seen projecting along the anterior proximal humerus that are non-specific but may represent loose bodies within the biceps tendon sheath. IMPRESSION: 1. Moderate acromioclavicular joint osteoarthrosis and mild glenohumeral osteoarthrosis. 2. Calcifications projecting along the anterior proximal humerus are nonspecific but may represent loose bodies within the biceps tendon sheath versus dystrophic calcifications. Approved by: Osmin Kearns M.D. on 08/19/2023 at 12:18
--- NOTE | 2023-08-19 09:19 | DI.RAD.S_ITS ---
PROCEDURE: XR WRIST LT MIN 3V INDICATIONS: Intervertebral disc disorders with radiculopathy, lumbar reg TECHNIQUE: 3 views of the wrist were acquired. COMPARISON: None. FINDINGS: Bones: No acute fractures or dislocations. No suspicious bony lesions. Severe radiocarpal degenerative changes, possibly related to remote prior trauma. Mild volar tilting of the distal radial articular surface. Distal radioulnar joint degenerative changes are also seen. There are [id number] degenerative changes at the 1st carpometacarpal and 1st metacarpophalangeal joints. Soft tissues: No suspicious soft tissue calcifications. IMPRESSION: Severe radiocarpal osteoarthrosis. Approved by: Osmin Kearns M.D. on 08/19/2023 at 12:13
--- NOTE | 2023-08-19 09:19 | DI.RAD.S_ITS ---
PROCEDURE: XR SHOULDER LT MIN 2V INDICATIONS: Intervertebral disc disorders with radiculopathy, lumbar reg TECHNIQUE: 3 views of the shoulder were acquired. COMPARISON: [facility], , XR SHOULDER 2V LEFT, 04/30/2005, 11:32. FINDINGS: Bones: No acute fractures or dislocations. No suspicious bony lesions. Visualized ribs appear intact. [id number] degenerative changes at the acromioclavicular joint. Mild degenerative spurring is seen at the inferior glenohumeral joint. Soft tissues: No suspicious soft tissue calcifications. IMPRESSION: [id number] acromioclavicular joint osteoarthrosis and mild glenohumeral osteoarthrosis. Approved by: Osmin Kearns M.D. on 08/19/2023 at 12:16
== END ==
PROVIDERS: Family Provider Family Medicine; PCP Family Medicine; Referring Provider Anesthesiology Pain Medicine; Visit Provider Anesthesiology Pain Medicine
DX: M51.16 Intervertebral disc disorders with radiculopathy, lumbar region (principal); M19.032 Primary osteoarthritis, left wrist; M19.031 Primary osteoarthritis, right wrist; M18.11 Unilateral primary osteoarthritis of first carpometacarpal joint, right hand; M19.012 Primary osteoarthritis, left shoulder; M19.011 Primary osteoarthritis, right shoulder
CPT/HCPCS: 73030; 73110

== ENCOUNTER → 2023-08-26 11:56 | Outpatient (CLI) | payer MEDICARE, OTHER, SELFPAY ==
--- NOTE | 2023-08-26 11:57 | DI.RAD.S_ITS ---
PROCEDURE: XR CHEST 2V INDICATIONS: chronic cough TECHNIQUE: 2 views of the chest were acquired. COMPARISON: [facility], CR, XR CHEST 1V, 09/14/2022, 6:29. [facility], CR, XR CHEST 1V, 09/14/2022, 3:25. FINDINGS: Surgical changes and devices: None. Lungs and pleura: Lungs are clear. No pleural effusions or pneumothorax. Mediastinum: Mediastinal contours are again seen to be abnormal secondary to what appears to be a moderately large hiatal hernia behind the heart. Heart size is normal. Bones and chest wall: No suspicious bony abnormalities. Soft tissues appear unremarkable. IMPRESSION: Persistent moderately large hiatal hernia behind the heart, no pneumonia seen. Dictated by: Dima Diaz M.D. on 08/26/2023 at 13:31 Approved by: Dima Diaz M.D. on 08/26/2023 at 13:32
[2023-08-26 14:26] LABS: Adenovirus Not Detected (Not Detect); B. parapertussis Not Detected (Not Detecte); Bordetella pertussis Not Detected (Not Detect); Chlamydophila pneumoniae Not Detected (Not Detect); Coronavirus 229E Not Detected (Not Detect); Coronavirus HKU1 Not Detected (Not Detect); Coronavirus NL 63 Not Detected (Not Detect); Coronavirus OC43 Not Detected (Not Detect); Human Metapneumovirus Detected (Not Detect); Human Rhinovirus/Enterovirus Not Detected (Not Detect); Influenza A Not Detected (Not Detect); Influenza B Not Detected (Not Detect); Mycoplasma pneumoniae Not Detected (Not Detect); Parainfluenza Virus 1 Not Detected (Not Detect); Parainfluenza Virus 2 Not Detected (Not Detect); Parainfluenza Virus 3 Not Detected (Not Detect); Parainfluenza Virus 4 Not Detected (Not Detect); Respiratory Syncytial Virus Not Detected (Not Detect); SARS- CoV-2 Not Detected (Not Detecte)
== END ==
PROVIDERS: Family Provider Family Medicine; PCP Family Medicine; Referring Provider Family Medicine; Visit Provider Family Medicine
DX: K44.9 Diaphragmatic hernia without obstruction or gangrene (principal); R05.1 Acute cough
CPT/HCPCS: 71046; 87633

== ENCOUNTER → 2023-09-27 11:22 | Outpatient (CLI) | payer MEDICARE, OTHER, SELFPAY ==
--- NOTE | 2023-09-27 | DI.RAD.S_ITS ---
PROCEDURE: XR RIBS RT MIN 3V W CXR 1V INDICATIONS: Pleurodynia TECHNIQUE: 3 views of the ribs were acquired, along with a single view chest. COMPARISON: None. FINDINGS: Surgical changes and devices: None. Bones and chest wall: No fractures or dislocations. No suspicious bony lesions. Overlying soft tissues appear unremarkable. Lungs and pleura: No pleural effusions or pneumothorax. Lungs appear clear. Mediastinum: Mediastinal contours appear normal. Heart size is normal. IMPRESSION: No displaced rib fracture or pneumothorax. Dictated by: Bang Hill M.D. on 09/27/2023 at 13:16 Approved by: Bang Hill M.D. on 09/27/2023 at 13:19
== END ==
PROVIDERS: Family Provider Family Medicine; PCP Family Medicine; Referring Provider Family Medicine; Visit Provider Family Medicine
DX: R07.81 Pleurodynia (principal)
CPT/HCPCS: 71101

== ENCOUNTER 2023-10-22 08:38 | Observation (INO) | payer MEDICARE, OTHER, SELFPAY ==
[2023-10-22] VITALS (15 sets, daily range): BP systolic 122–162; BP diastolic 50–94; PULSE 82–102; RESP 13–25; TEMP 36.5–37.8; O2SAT 87–100; BMI 29.5
[2023-10-22 08:55] LABS: Add Manual Diff / Slide Review NO; Basophils Absolute Auto 0 /uL (0-100); Basophils Percent Auto 0.4 % (0-2); Eosinophils Absolute Auto 0 /uL (0-450); Eosinophils Percent Auto 0.2 % (2-4); Hematocrit 48.2 % (41-53); Hemoglobin 16.6 g/dL (13.5-17.5); Lymphocytes Absolute Auto 1900 /uL (1100-4500); Lymphocytes Percent Auto 17.4 % (25-40); Mean Corpuscular HGB Conc 34.5 % (30-36); Mean Corpuscular Hemoglobin 32.1 PG (26-34); Mean Corpuscular Volume 92.9 fL (80-100); Monocytes Absolute Auto 300 /uL (0-900); Monocytes Percent Auto 2.3 % (3-14); Neutrophils Absolute Auto 8900 /uL (1500-7000); Neutrophils Percent Auto 79.7 % (50-75); Platelet Count 234 X10^3/uL (150-400); Red Blood Cell Count 5.19 X10^6/uL (4.5-5.9); Red Cell Distribution Width 13.1 % (11.6-14.8); White Blood Cell Count 11.2 X10^3/uL (4.5-11.0)
[2023-10-22] MEDS: ONDANSETRON 4 MG/2 ML INJ IV ×3 (09:02→20:27)
[2023-10-22] MEDS: HYDROMORPHONE 1 MG INJ IV ×5 (09:02→20:05)
--- NOTE | 2023-10-22 09:03 | ED_ITS ---
HPI - Abdominal Pain General Chief Complaint: Abdominal Pain Stated Complaint: abdominal pain, constipation, vomiting Time Seen by Provider: 10/22/23 08:54 Source: patient and family Mode of arrival: Family Vehicle History of Present Illness HPI narrative: Patient 68-year-old male history of frequent bowel obstructions, history of hiatal hernia repair followed by multiple ventral hernia repairs with mesh, prostate surgery presents today with increased abdominal pain and distention. He has frequently had obstructions. He gets some muscle spasm and tightness over his abdomen. Not passing any gas feels nauseated but not vomiting appears in significant pain. No significant chest pain. Reports he generally feels better with the NG tube with NG tube is frequently difficult to place. He was last here 09/14/2022 with a similar presentation. According to surgery note during that admission Radiology needed to place a gastrostomy tube Related Data Home Medications Medication Instructions Recorded Confirmed gabapentin 100 mg capsule 600 mg PO TID ##0 04/16/16 10/22/23 amlodipine 5 mg tablet 5 mg PO BEDTIME 01/17/19 10/22/23 duloxetine 20 mg capsule,delayed 30 mg PO BEDTIME 01/17/19 10/22/23 release hydrocodone 5 mg-acetaminophen 325 1 - 2 tab PO Q6H PRN Pain (Scale 05/13/20 10/22/23 mg tablet Score 4-6) methocarbamol 500 mg tablet 1,000 mg PO QID PRN Spasms ##0 05/13/20 10/22/23 ascorbic acid (vitamin C) 1,000 mg 1,000 mg PO Q12H 07/21/21 10/22/23 tablet,extended release nabumetone 500 mg tablet 500 mg PO BID 07/21/21 10/22/23 pravastatin 40 mg tablet 40 mg PO BEDTIME 07/21/21 10/22/23 psyllium husk 3.4 gram/5.4 gram 1 tbsp PO DAILY 07/21/21 10/22/23 oral powder (Metamucil) Previous Rx's Medication Instructions Recorded omeprazole 20 mg capsule,delayed 20 mg PO DAILY Ulcer #30 caps 05/13/20 release tamsulosin 0.4 mg capsule 0.4 mg PO BEDTIME #90 caps 07/21/21 Allergies Allergy/AdvReac Type Severity Reaction Status Date / Time morphine AdvReac Severe Cramping Verified 10/22/23 08:53 Patient History Medical History Prostate cancer Lower urinary tract symptoms (LUTS) Family history of prostate cancer Elevated PSA Anemia Enlarged prostate Diverticula of colon Depression SCC (squamous cell carcinoma) (~10/2018) Osteoarthritis HTN (hypertension) Cervical spinal stenosis HLD (hyperlipidemia) Small bowel obstruction (~03/2016) Surgical History Hx of tonsillectomy H/O vasectomy Hx of abdominal surgery Family History Father Hyperlipidemia Hypertension Mother Hyperlipidemia Hypertension UTI symptoms Grandmother FH: CVA (cerebrovascular accident) Social History marital status: number of children: 3 household members: spouse and family occupational status: previously employed Smoking Status: Former smoker alcohol intake: current substance use type: does not use Smoking Status: Former smoker alcohol intake frequency: a few times a week Substance Use Type: does not use Exam Initial Vital Signs Initial Vital Signs: Vital Signs Pulse Rate 102 H 10/22/23 08:42 Pulse Oximetry 98 10/22/23 08:42 GENERAL: 68-year-old male appears very uncomfortable HEENT: Head atraumatic,EOMI, pupils reactive, face symmetric, moist mucous membranes CARDIOVASCULAR: Regular rate and rhythm without murmurs, rubs or gallops. RESPIRATORY: Breath sounds equal bilaterally, no wheezes rales or rhonchi. ABDOMEN: Distention increased bowel sounds diffusely tender still soft, scar noted EXTREMITIES: Normal range of motion, no clubbing or edema. Neurovascularly intact NEUROLOGICAL: Alert and oriented x4.Normal gait and speech. SKIN: Warm, dry, no laceration, no petechiae, no rashes or lesions. Course Orders Ordered: ED Orders 10/22/23 08:45 Complete Blood Count AUTO DIFF Stat Comprehensive Metabolic Panel Stat Lactate (Lactic Acid) Stat Lipase Stat 10/22/23 08:48 EKG-12 Lead Stat 10/22/23 09:03 CT abdomen pelvis w con Stat 10/22/23 10:20 Consult to Physician Stat Bisacodyl (Bisacodyl 10 Mg Supp) 10 mg [place] DAILY PRN PRN Reason: Constipation Cyclobenzaprine HCl (Cyclobenzaprine 10 Mg Tablet) 10 mg PO Q8HR PRN PRN Reason: Spasms Docusate Sodium (Docusate 100 Mg Capsule) 100 mg PO BID [facility] Enoxaparin Sodium (Enoxaparin 40 Mg/0.4 Ml Syringe) 40 mg SUBCUT DAILY [facility] Hydralazine HCl (Hydralazine 20 Mg/Ml Vial) 10 mg IV Q6HR PRN PRN Reason: Hypertension SBP >180 Hydromorphone HCl (Hydromorphone 1 Mg Inj) 1 mg IV Q3H PRN PRN Reason: Pain, Moderate (4-6) Sodium Chloride (Normal Saline 0.9%) 1,000 mls @ 125 mls/hr IV CONT [facility] Last Admin: 10/22/23 09:22 Dose: 125 mls/hr Documented By: RB Acetaminophen (Ofirmev) 1,000 mg in 100 mls @ 400 mls/hr IV Q6H PRN PRN Reason: Fever/Mild Pain (1-3) Magnesium Hydroxide (Magnesium Hydroxide 30 Ml Udc) 30 ml PO DAILY PRN PRN Reason: Constipation Mineral Oil (Mineral Oil 1 Each Enema) 1 each [place] PRN PRN PRN Reason: Constipation Naloxone HCl (Naloxone 0.4 Mg/Ml Vial) 0.2 mg IV Q2MIN PRN PRN Reason: Opiate Reversal Ondansetron HCl (Ondansetron 4 Mg Odt) 4 mg PO NOW PRN PRN Reason: Nausea And Vomiting Ondansetron HCl (Ondansetron 4 Mg/2 Ml Inj) 4 mg IV Q8HR PRN PRN Reason: Nausea And Vomiting Pantoprazole Sodium (Pantoprazole 40 Mg Vial) 20 mg IV BID [facility] Sodium Biphosphate/Sodium Phosphate (Fleets Enema) 1 each [place] PRN PRN PRN Reason: Constipation Discontinued Medications Hydromorphone HCl (Hydromorphone 1 Mg Inj) 1 mg IV NOW ONE Stop: 10/22/23 09:00 Last Admin: 10/22/23 09:02 Dose: 1 mg Documented By: RB Lorazepam (Lorazepam 2 Mg/Ml Inj) 0.5 mg IV NOW ONE Stop: 10/22/23 09:45 Last Admin: 10/22/23 09:49 Dose: 0.5 mg Documented By: RB Methylnaltrexone [place] (Methylnaltrexone 12 Mg/0.6 Ml Vial) 8 mg SUBCUT NOW ONE Stop: 10/22/23 12:06 Ondansetron HCl (Ondansetron 4 Mg/2 Ml Inj) 4 mg IV NOW PRN PRN Reason: Nausea And Vomiting Last Admin: 10/22/23 09:02 Dose: 4 mg Documented By: RB Vital Signs Vital signs: Vital Signs - 8 hr 10/22/23 08:42 10/22/23 08:46 10/22/23 08:46 Temperature Pulse Rate 102 H 95 H Respiratory Rate Blood Pressure 150/91 H Pulse Oximetry 98 100 Oxygen Delivery Method Oxygen Flow Rate 10/22/23 08:49 10/22/23 09:00 10/22/23 09:00 Temperature 97.9 F Pulse Rate 90 88 Respiratory Rate 20 Blood Pressure 150/91 H 161/85 H Pulse Oximetry 98 100 Oxygen Delivery Method Room Air Oxygen Flow Rate 10/22/23 09:36 10/22/23 09:37 10/22/23 09:37 Temperature Pulse Rate 84 82 Respiratory Rate 21 25 H Blood Pressure 162/90 H Pulse Oximetry 87 L Oxygen Delivery Method Room Air Oxygen Flow Rate 10/22/23 09:45 10/22/23 09:45 10/22/23 10:00 Temperature Pulse Rate 85 88 Respiratory Rate 16 13 Blood Pressure 145/94 H Pulse Oximetry 95 94 Oxygen Delivery Method Nasal Cannula Nasal Cannula Oxygen Flow Rate 1.5 1.5 10/22/23 10:00 10/22/23 10:15 10/22/23 10:15 Temperature Pulse Rate 90 Respiratory Rate 16 Blood Pressure 153/89 H 151/94 H Pulse Oximetry 95 Oxygen Delivery Method Nasal Cannula Oxygen Flow Rate 1.5 10/22/23 10:30 10/22/23 10:30 Temperature Pulse Rate 87 Respiratory Rate 16 Blood Pressure 161/77 H Pulse Oximetry Oxygen Delivery Method Oxygen Flow Rate MDM - Abdominal Pain Lab Data 10/22/23 08:45 10/22/23 08:45 Labs: Lab Results 10/22/23 Range/Units 08:45 WBC 11.2 H (4.5-11.0) X10^3/uL RBC 5.19 (4.5-5.9) X10^6/uL Hgb 16.6 (13.5-17.5) g/dL Hct 48.2 (41-53) % MCV 92.9 (80-100) fL MCH 32.1 (26-34) PG MCHC 34.5 (30-36) % RDW 13.1 (11.6-14.8) % Plt Count 234 (150-400) X10^3/uL Neut % (Auto) 79.7 H (50-75) % Lymph % (Auto) 17.4 L (25-40) % [place] % (Auto) 2.3 L (3-14) % Eos % (Auto) 0.2 L (2-4) % Baso % (Auto) 0.4 (0-2) % Neut # (Auto) 8900 H (4390-7446) /uL Lymph # (Auto) 1900 (4662-9162) /uL [place] # (Auto) 300 (0-900) /uL Eos # (Auto) 0 (0-450) /uL Baso # (Auto) 0 (0-100) /uL Sodium 141 (137-145) mmol/L Potassium 3.9 (3.4-5.1) mmol/L Chloride 104 (98-107) mmol/L Carbon Dioxide 27 (22-32) mmol/L BUN 18 (9-20) mg/dL Creatinine 0.88 (0.66-1.25) mg/dL Estimated GFR > 60 (>60) mL/min BUN/Creatinine Ratio 20.5 (6-22) Glucose 217 H (80-110) mg/dL Lactate 2.3 H (0.7-2.1) mmol/L Calcium 9.7 (8.4-10.2) mg/dL Total Bilirubin 0.8 (0.2-1.3) mg/dL AST 44 (17-59) IU/L ALT 39 (<50) IU/L Alkaline Phosphatase 119 (38-126) U/L Total Protein 8.2 (6.3-8.2) g/dL Albumin 4.8 (3.5-5.0) g/dL Globulin 3.4 (1.7-4.1) g/dL Albumin/Globulin Ratio 1.4 (1.0-2.8) Lipase 975 H (23-300) U/L Imaging Data CT scan - abdomen/pelvis: Radiologist's Impression: PROCEDURE: CT ABDOMEN PELVIS W CON INDICATIONS: obstruction TECHNIQUE: After the administration of intravenous contrast, axial sections acquired from the lung bases to the pubic symphysis. Coronal and sagittal reformats were performed. For radiation dose reduction, the following was used: automated exposure control, adjustment of mA and/or kV according to patient size. COMPARISON: [facility], CT, CT ABDOMEN PELVIS W CON, 09/14/2022, 3:48. FINDINGS: Image quality: Diagnostic. Lower Chest: Large hiatal hernia. ABDOMEN: Liver: No solid mass. Gallbladder: No radiopaque gallstones or wall thickening. Biliary ducts: No biliary dilation. Pancreas: No ductal dilation. Spleen: Size is within normal limits. Adrenal Glands: No adrenal nodules. Kidneys and Ureters: No hydronephrosis. No solid mass. No complex renal cystic lesion which requires follow up. Stomach and Bowel: Distended loops of small bowel, with a transition point in the mid abdomen (series 2, image 43). There is fecalized debris within the small bowel. Moderate mesenteric edema. Normal enhancement of the bowel wall. Normal appendix. Peritoneum: No abnormal intraperitoneal fluid. No free air. Ventral Wall: No significant ventral hernia. Abdominal Nodes: No retroperitoneal or mesenteric adenopathy by size criteria. Vessels: Aorta and inferior vena cava are normal in size. PELVIS: Pelvic Organs: Unremarkable. Bladder: No bladder wall thickening, accounting for underdistention. Pelvic Nodes: No enlarged lymph nodes. Miscellaneous: No inguinal hernias are seen. Bones: No aggressive osseous abnormality. Grade 2 anterolisthesis of L5 on S1 secondary to pars defects. IMPRESSION: Small-bowel obstruction with the transition point in the mid abdomen. Fecalized small bowel contents and moderate mesenteric edema. Dictated by: Kyle Hogan M.D. on 10/22/2023 at 9:54 MDM Narrative Medical decision making narrative: Patient is 68-year-old male with history of multiple abdominal surgeries frequent bowel obstructions presenting today concern for bowel obstruction again. He apparently tried to stay awake last night trying home fleets enemas without any sort of success. Initially appeared quite uncomfortable but is given Dilaudid which seemed to help quite a bit for pain. Blood work has been reviewed WBC 11.2, hemoglobin 16.6 hematocrit 42 platelets 234 sodium 141, potassium 3.9, chloride 104, carbon dioxide 27, BUN 19 creatinine 0.8 lactate 2.3, bilirubin 0.8 AST 44 ALT [address] shows small bowel obstruction with a transition point in mid abdomen Damion 10:00 requests NG tube and admit to medicine Dr. Gaytan 10:30 in ED to see and evaluate patient Patient has history of small-bowel obstruction again has a small-bowel obstruction. Elevation of lactate 2.3 with repeat of 2.0. Patient had relief with Dilaudid but continues to get like muscle spasms he is wanting something for he received Ativan it was quite sleepy. Nurse is going to attempt an NG tube however he was too sleepy to participate. I do not think patient has sepsis he has no leukocytosis or fever lactate is likely secondary to obstruction antibiotics and blood cultures were not taken. Discharge Plan Departure Patient Disposition: Admitted as Observation Clinical Impression: SBO (small bowel obstruction) Admit Date/Time: 10/22/23 10:40 Admit Provider: Miguel Angel Gaytan
[2023-10-22 09:05] LABS: Alanine Aminotransferase 39 IU/L (<50); Albumin 4.8 g/dL (3.5-5.0); Albumin Globulin Ratio 1.4 (1.0-2.8); Alkaline Phosphatase 119 U/L (38-126); Aspartate Aminotransferase 44 IU/L (17-59); BUN Creatinine Ratio 20.5 (6-22); Bilirubin Total 0.8 mg/dL (0.2-1.3); Blood Urea Nitrogen 18 mg/dL (9-20); Calcium 9.7 mg/dL (8.4-10.2); Carbon Dioxide 27 mmol/L (22-32); Chloride 104 mmol/L (98-107); Estimated Glomerular Filt Rate > 60 mL/min (>60); Globulin 3.4 g/dL (1.7-4.1); Glucose 217 mg/dL (80-110); HEMOLYSIS < 15 (0-50); Lipase 975 U/L (23-300); Potassium 3.9 mmol/L (3.4-5.1); Sodium 141 mmol/L (137-145); Total Protein 8.2 g/dL (6.3-8.2)
[2023-10-22 09:22] LABS: Lactate (Lactic Acid) 2.3 mmol/L (0.7-2.1)
[2023-10-22] MEDS: SODIUM CHLORIDE 0.9% 1,000 ML 125 ML IV ×2 (09:22→16:37)
[2023-10-22] MEDS: LORazepam 2 MG/ML INJ 0.5 MG IV (09:49)
[2023-10-22 10:51] LABS: Reflexed Lactate in 2 Hours Y
--- NOTE | 2023-10-22 11:32 | P.CONS_ITS ---
History of Present Illness Consult details Date Patient Seen: 10/22/23 Time Patient Seen: 11:33 Chief complaint: abdominal pain, constipation, vomiting Reason for consult: SBO Requesting provider: Rosalinda Ferrer Narrative: Proximally 24 hours of feeling unwell. Not passing flatus. Anorexia and abdominal distention. 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 Has had multiple abdominal surgeries including Joce fundoplication, and hernia repairs with mesh. Last time hospitalized was a year ago. Usually resolves without surgical intervention. Patient is leery of surgery. Meds Home Medications and Allergies Home Medications Medication Instructions Recorded Confirmed Type gabapentin 100 mg capsule 600 mg PO TID ##0 04/16/16 10/28/21 History amlodipine 5 mg tablet 5 mg PO BEDTIME 01/17/19 10/28/21 History duloxetine 20 mg capsule,delayed 30 mg PO BEDTIME 01/17/19 10/28/21 History release hydrocodone 5 mg-acetaminophen 325 1 - 2 tab PO Q6H PRN Pain (Scale 05/13/20 10/28/21 History mg tablet Score 4-6) methocarbamol 500 mg tablet 1,000 mg PO QID PRN Spasms ##0 05/13/20 10/28/21 History omeprazole 20 mg capsule,delayed 20 mg PO DAILY Ulcer #30 caps 05/13/20 10/28/21 Rx release ascorbic acid (vitamin C) 1,000 mg 1,000 mg PO Q12H 07/21/21 10/28/21 History tablet,extended release nabumetone 500 mg tablet 500 mg PO BID 07/21/21 10/28/21 History pravastatin 40 mg tablet 40 mg PO BEDTIME 07/21/21 10/28/21 History psyllium husk 3.4 gram/5.4 gram 1 tbsp PO DAILY 07/21/21 10/28/21 History oral powder (Metamucil) tamsulosin 0.4 mg capsule 0.4 mg PO BEDTIME #90 caps 07/21/21 10/28/21 Rx bicalutamide 50 mg tablet (Casodex) 50 mg PO DAILY #30 tabs 10/28/21 10/28/21 Rx Allergies Allergy/AdvReac Type Severity Reaction Status Date / Time morphine AdvReac Severe Cramping Verified 10/22/23 08:53 Review of Systems Review of Systems ROS: Yes All systems reviewed with the patient and are negative except as otherwise documented Exam Vital Signs (past 8 hours): - 10/22/23 08:42 10/22/23 08:46 10/22/23 08:46 Temperature Pulse Rate 102 H 95 H Respiratory Rate Blood Pressure 150/91 H Pulse Oximetry 98 100 Oxygen Delivery Method Oxygen Flow Rate 10/22/23 08:49 10/22/23 09:00 10/22/23 09:00 Temperature 97.9 F Pulse Rate 90 88 Respiratory Rate 20 Blood Pressure 150/91 H 161/85 H Pulse Oximetry 98 100 Oxygen Delivery Method Room Air Oxygen Flow Rate 10/22/23 09:36 10/22/23 09:37 10/22/23 09:37 Temperature Pulse Rate 84 82 Respiratory Rate 21 25 H Blood Pressure 162/90 H Pulse Oximetry 87 L Oxygen Delivery Method Room Air Oxygen Flow Rate 10/22/23 09:45 10/22/23 09:45 10/22/23 10:00 Temperature Pulse Rate 85 88 Respiratory Rate 16 13 Blood Pressure 145/94 H Pulse Oximetry 95 94 Oxygen Delivery Method Nasal Cannula Nasal Cannula Oxygen Flow Rate 1.5 1.5 10/22/23 10:00 10/22/23 10:15 10/22/23 10:15 Temperature Pulse Rate 90 Respiratory Rate 16 Blood Pressure 153/89 H 151/94 H Pulse Oximetry 95 Oxygen Delivery Method Nasal Cannula Oxygen Flow Rate 1.5 10/22/23 10:30 10/22/23 10:30 10/22/23 10:45 Temperature Pulse Rate 87 85 Respiratory Rate 16 19 Blood Pressure 161/77 H Pulse Oximetry 92 Oxygen Delivery Method Oxygen Flow Rate 10/22/23 10:45 10/22/23 11:00 10/22/23 11:00 Temperature Pulse Rate 87 Respiratory Rate 16 Blood Pressure 122/77 137/84 Pulse Oximetry Oxygen Delivery Method Oxygen Flow Rate Oxygen Delivery Method Nasal Cannula Oxygen Flow Rate 1.5 Narrative Exam Narrative: CT scan reviewed personally. Does indicate early small bowel obstruction with transition in the mid abdomen. Const General: ill appearing Nutritional Appearance: average body habitus Orientation: alert, awake and oriented x3 HENMT Head: normocephalic and atraumatic Ears: hearing grossly normal bilaterally Eyes Sclera: sclerae normal Neck Neck: trachea midline and No JVD Resp Effort & Inspection: normal respiratory effort, able to speak in complete sentences and no cough Cardio Rate: regular rate Rhythm: regular rhythm GI Palpation: soft, firm and No guarding Percussion: dullness to percussion Skin General: turgor normal and atrophy Neuro General: patient alert, patient awake, patient oriented x3 and moves all extremities Cognition: normal cognition Psych Mental Status: mental status grossly normal Judgment: judgment good Objective Labs 10/22/23 08:45 10/22/23 08:45 Labs: Laboratory Results - last 24 hr 10/22/23 10/22/23 08:45 10:55 WBC 11.2 H RBC 5.19 Hgb 16.6 Hct 48.2 MCV 92.9 MCH 32.1 MCHC 34.5 RDW 13.1 Plt Count 234 Neut % (Auto) 79.7 H Lymph % (Auto) 17.4 L [place] % (Auto) 2.3 L Eos % (Auto) 0.2 L Baso % (Auto) 0.4 Neut # (Auto) 8900 H Lymph # (Auto) 1900 [place] # (Auto) 300 Eos # (Auto) 0 Baso # (Auto) 0 Sodium 141 Potassium 3.9 Chloride 104 Carbon Dioxide 27 BUN 18 Creatinine 0.88 Estimated GFR > 60 BUN/Creatinine Ratio 20.5 Glucose 217 H Lactate 2.3 H 2.0 Calcium 9.7 Total Bilirubin 0.8 AST 44 ALT 39 Alkaline Phosphatase 119 Total Protein 8.2 Albumin 4.8 Globulin 3.4 Albumin/Globulin Ratio 1.4 Lipase 975 H PFSH Medical History Prostate cancer Lower urinary tract symptoms (LUTS) Family history of prostate cancer Elevated PSA Anemia Enlarged prostate Diverticula of colon Depression SCC (squamous cell carcinoma) (~10/2018) Osteoarthritis HTN (hypertension) Cervical spinal stenosis HLD (hyperlipidemia) Small bowel obstruction (~03/2016) Surgical History Hx of tonsillectomy H/O vasectomy Hx of abdominal surgery Family History Father Hyperlipidemia Hypertension Mother Hyperlipidemia Hypertension UTI symptoms Grandmother FH: CVA (cerebrovascular accident) Social History marital status: number of children: 3 household members: spouse occupational status: previously employed Tobacco & Substance Use Smoking Status: Former smoker alcohol intake: current substance use type: does not use Assessment & Plan Assessment & Plan narrative: Recurrent SBO likely adhesive disease. NGT if there is emesis. IVF and bowel rest for now. Time Spent With Patient Time with patient: less than 30 minutes
--- NOTE | 2023-10-22 11:46 | PM.HP.1 ---
History of Present Illness History of Present Illness Date Patient Seen: 10/22/23 Time Patient Seen: 11:00 Chief complaint: abdominal pain, constipation, vomiting Narrative: CC: recurrent bowel obstruction Pt presents in pain with complaint of distended painful abdomen and inability to defecate for multiple days. Extensive prior abdominal surgical history and previous presentations for obstruction. He is a very tough NGT placement and has required radiology to place in the past. He did get some dilaudid in the ED which is helping for pain however his gut is drum-tight. Last had anything to eat yesterday. Able to urinate ok. Feeling quite nauseous with some puking. [facility] Medical History Prostate cancer Lower urinary tract symptoms (LUTS) Family history of prostate cancer Elevated PSA Anemia Enlarged prostate Diverticula of colon Depression SCC (squamous cell carcinoma) (~10/2018) Osteoarthritis HTN (hypertension) Cervical spinal stenosis HLD (hyperlipidemia) Small bowel obstruction (~03/2016) Surgical History Hx of tonsillectomy H/O vasectomy Hx of abdominal surgery Family History Father Hyperlipidemia Hypertension Mother Hyperlipidemia Hypertension UTI symptoms Grandmother FH: CVA (cerebrovascular accident) Social History marital status: number of children: 3 household members: spouse occupational status: previously employed Smoking Status: Former smoker alcohol intake: current substance use type: does not use Meds Home Medications and Allergies Home Medications Medication Instructions Recorded Confirmed Type gabapentin 100 mg capsule 600 mg PO TID ##0 04/16/16 10/22/23 History amlodipine 5 mg tablet 5 mg PO BEDTIME 01/17/19 10/22/23 History duloxetine 20 mg capsule,delayed 30 mg PO BEDTIME 01/17/19 10/22/23 History release hydrocodone 5 mg-acetaminophen 325 1 - 2 tab PO Q6H PRN Pain (Scale 05/13/20 10/22/23 History mg tablet Score 4-6) methocarbamol 500 mg tablet 1,000 mg PO QID PRN Spasms ##0 05/13/20 10/22/23 History omeprazole 20 mg capsule,delayed 20 mg PO DAILY Ulcer #30 caps 05/13/20 10/22/23 Rx release ascorbic acid (vitamin C) 1,000 mg 1,000 mg PO Q12H 07/21/21 10/22/23 History tablet,extended release nabumetone 500 mg tablet 500 mg PO BID 07/21/21 10/22/23 History pravastatin 40 mg tablet 40 mg PO BEDTIME 07/21/21 10/22/23 History psyllium husk 3.4 gram/5.4 gram 1 tbsp PO DAILY 07/21/21 10/22/23 History oral powder (Metamucil) tamsulosin 0.4 mg capsule 0.4 mg PO BEDTIME #90 caps 07/21/21 10/22/23 Rx Allergies Allergy/AdvReac Type Severity Reaction Status Date / Time morphine AdvReac Severe Cramping Verified 10/22/23 08:53 Review of Systems Review of Systems Narrative: all systems reviewed and negative except as otherwise noted in HPI Exam Vital Signs (past 8 hours): - 10/22/23 08:42 10/22/23 08:46 10/22/23 08:46 Temperature Pulse Rate 102 H 95 H Respiratory Rate Blood Pressure 150/91 H Pulse Oximetry 98 100 Oxygen Delivery Method Oxygen Flow Rate 10/22/23 08:49 10/22/23 09:00 10/22/23 09:00 Temperature 97.9 F Pulse Rate 90 88 Respiratory Rate 20 Blood Pressure 150/91 H 161/85 H Pulse Oximetry 98 100 Oxygen Delivery Method Room Air Oxygen Flow Rate 10/22/23 09:36 10/22/23 09:37 10/22/23 09:37 Temperature Pulse Rate 84 82 Respiratory Rate 21 25 H Blood Pressure 162/90 H Pulse Oximetry 87 L Oxygen Delivery Method Room Air Oxygen Flow Rate 10/22/23 09:45 10/22/23 09:45 10/22/23 10:00 Temperature Pulse Rate 85 88 Respiratory Rate 16 13 Blood Pressure 145/94 H Pulse Oximetry 95 94 Oxygen Delivery Method Nasal Cannula Nasal Cannula Oxygen Flow Rate 1.5 1.5 10/22/23 10:00 10/22/23 10:15 10/22/23 10:15 Temperature Pulse Rate 90 Respiratory Rate 16 Blood Pressure 153/89 H 151/94 H Pulse Oximetry 95 Oxygen Delivery Method Nasal Cannula Oxygen Flow Rate 1.5 10/22/23 10:30 10/22/23 10:30 10/22/23 10:45 Temperature Pulse Rate 87 85 Respiratory Rate 16 19 Blood Pressure 161/77 H Pulse Oximetry 92 Oxygen Delivery Method Oxygen Flow Rate 10/22/23 10:45 10/22/23 11:00 10/22/23 11:00 Temperature Pulse Rate 87 Respiratory Rate 16 Blood Pressure 122/77 137/84 Pulse Oximetry Oxygen Delivery Method Oxygen Flow Rate Oxygen Delivery Method Nasal Cannula Oxygen Flow Rate 1.5 Narrative Exam Narrative: in extremis in hospital bed clutching gut very uncomfortable Resp Other: clear to auscultation bilaterally Cardio Other: regular rate s1/s2 well perfused GI Other: midline well healed surgical incision distended tympanic reduced bowel sounds very tender to any palpation Extrem Other: moving all extremities Objective Labs 10/22/23 08:45 10/22/23 08:45 Labs: Laboratory Results - last 24 hr 10/22/23 10/22/23 08:45 10:55 WBC 11.2 H RBC 5.19 Hgb 16.6 Hct 48.2 MCV 92.9 MCH 32.1 MCHC 34.5 RDW 13.1 Plt Count 234 Neut % (Auto) 79.7 H Lymph % (Auto) 17.4 L [place] % (Auto) 2.3 L Eos % (Auto) 0.2 L Baso % (Auto) 0.4 Neut # (Auto) 8900 H Lymph # (Auto) 1900 [place] # (Auto) 300 Eos # (Auto) 0 Baso # (Auto) 0 Sodium 141 Potassium 3.9 Chloride 104 Carbon Dioxide 27 BUN 18 Creatinine 0.88 Estimated GFR > 60 BUN/Creatinine Ratio 20.5 Glucose 217 H Lactate 2.3 H 2.0 Calcium 9.7 Total Bilirubin 0.8 AST 44 ALT 39 Alkaline Phosphatase 119 Total Protein 8.2 Albumin 4.8 Globulin 3.4 Albumin/Globulin Ratio 1.4 Lipase 975 H Assessment & Plan Assessment & Plan narrative: #bowel obstruction, acute #likely adhesions 2/2 surgical history has already been trying fleet enemas avoid opiates if possible prn tylenol ordered NPO will see if our excellent nursing staff can attempt an NGT if not will get radiology onboard Surgery consulted Dr. Bruno is aware got some dilaudid today for pain and sedation for NGT - will give methylnaltrexone as well After NGT will try some enemas - mineral oil and soapy water see if we can get this going. prns are at nursing disposal. #HTN essential continue home meds when able to take orals - prn hydralazine for now #BPH w/obstruction stable continue flomax monitor output may need mullen for abdominal pressure if retaining #hx of muscle cramps prn cyclobenzaprine when able to take po - stay hydrated for now #hyperlipidemia mixed continue home statin when able to take orals again dispo: admit obs for hopefully non op management Code: full PCP: Sera Townsend DVT ppx: lovenox MDM: Donna [phone]
--- NOTE | 2023-10-22 12:29 | DI.RAD.S_ITS ---
PROCEDURE: XR CHEST 1V INDICATIONS: tube check stat TECHNIQUE: One view of the chest was acquired. COMPARISON: [facility], CT, CT ABDOMEN PELVIS W CON, 10/22/2023, 9:23. [facility], CR, XR CHEST 2V, 08/26/2023, 12:00. [facility], CR, XR CHEST 1V, 09/14/2022, 6:29. FINDINGS: Surgical changes and devices: Gastric tube side port projects over the GE junction. The tip projects over the hiatal hernia. Lungs and pleura: Lungs are clear. No pleural effusions or pneumothorax. Mediastinum: Mediastinal contours appear normal. Heart size is normal. Bones and chest wall: No suspicious bony lesions. Overlying soft tissues appear unremarkable. IMPRESSION: Gastric tube side port projects over the GE junction. Recommend advancement by 5 centimeters. Large hiatal hernia. Dictated by: Kyle Hogan M.D. on 10/22/2023 at 13:08 Approved by: Kyle Hogan M.D. on 10/22/2023 at 13:09
[2023-10-22] MEDS: PANTOPRAZOLE 40 MG VIAL 20 MG IV ×2 (12:58→20:27)
[2023-10-22] MEDS: METHYLNALTREXONE 12 MG/0.6 ML VIAL 8 MG SUBCUT (13:02)
[2023-10-22] MEDS: MINERAL OIL 1 EACH ENEMA PR (13:58)
[2023-10-22] MEDS: ACETAMINOPHEN IV 1,000 MG/100 ML VIAL 400 MG IV (17:35)
[2023-10-22] MEDS: LIDOCAINE VISCOUS 2% 15 ML SOLUTION PO (19:38)
[2023-10-22 19:58] LABS: Appearance Urine UA CLEAR; Bilirubin Urine UA 1+ (NEGATIVE); Color Urine UA YELLOW; Glucose Urine UA NEGATIVE (Negative); Ketones Urine UA NEGATIVE (NEGATIVE); Leukocyte Esterase Urine UA NEGATIVE (NEGATIVE); Nitrite Urine UA NEGATIVE (Negative); Occult Blood Urine UA NEGATIVE (Negative); Protein Urine UA 1+ (Negative); Urobilinogen Urine UA 0.2 E.U./dL (0.2); pH Urine UA 5.5 (4.5-8.0)
[2023-10-22 20:01] LABS: Ictotest Urine Negative (Negative)
[2023-10-22 20:06] LABS: RBC Urine 0-1/HPF (0-5/HPF); Urine Volume 10mL (spun); WBC Urine None Seen (0-5/HPF)
[2023-10-22 20:07] LABS: Bacteria Urine None Seen; Culture Indicated Urine Cult Not Indicated; Squamous Epithelial Cell Urine None Seen (0-5/HPF)
[2023-10-22] MEDS: MAGNESIUM CITRATE 300 ML SOLUTION PO (20:27)
[2023-10-23 01:00] VITALS: BP 130/81; PULSE 86; RESP 18; TEMP 37.7; O2SAT 96
--- NOTE | 2023-10-23 05:28 | PC.NURSE ---
0500 - Patient pulled out NG tube accidentally while sleeping. No output through NG tube this shift. Denies nausea and reports pain decreased to 2/10. Has had 2 bowel movements medium/large after soap suds enema.
[2023-10-23 05:35] LABS: Add Manual Diff / Slide Review NO; Basophils Absolute Auto 0 /uL (0-100); Basophils Percent Auto 0.2 % (0-2); Eosinophils Absolute Auto 0 /uL (0-450); Eosinophils Percent Auto 0.1 % (2-4); Hematocrit 41.4 % (41-53); Hemoglobin 14.1 g/dL (13.5-17.5); Lymphocytes Absolute Auto 900 /uL (1100-4500); Lymphocytes Percent Auto 11.8 % (25-40); Mean Corpuscular Hemoglobin 31.9 PG (26-34); Mean Corpuscular Volume 93.7 fL (80-100); Monocytes Absolute Auto 900 /uL (0-900); Monocytes Percent Auto 12.7 % (3-14); Neutrophils Absolute Auto 5500 /uL (1500-7000); Neutrophils Percent Auto 75.2 % (50-75); Platelet Count 211 X10^3/uL (150-400); Red Blood Cell Count 4.41 X10^6/uL (4.5-5.9); Red Cell Distribution Width 13.3 % (11.6-14.8); White Blood Cell Count 7.3 X10^3/uL (4.5-11.0)
[2023-10-23 05:43] LABS: Alanine Aminotransferase 27 IU/L (<50); Albumin 3.9 g/dL (3.5-5.0); Albumin Globulin Ratio 1.5 (1.0-2.8); Alkaline Phosphatase 80 U/L (38-126); Aspartate Aminotransferase 30 IU/L (17-59); BUN Creatinine Ratio 30.5 (6-22); Bilirubin Total 0.8 mg/dL (0.2-1.3); Blood Urea Nitrogen 29 mg/dL (9-20); Calcium 8.1 mg/dL (8.4-10.2); Carbon Dioxide 28 mmol/L (22-32); Chloride 108 mmol/L (98-107); Estimated Glomerular Filt Rate > 60 mL/min (>60); Globulin 2.6 g/dL (1.7-4.1); Glucose 154 mg/dL (80-110); HEMOLYSIS < 15 (0-50); Potassium 4.4 mmol/L (3.4-5.1); Sodium 141 mmol/L (137-145); Total Protein 6.5 g/dL (6.3-8.2)
[2023-10-23 08:00] VITALS: BP 114/67; PULSE 68; RESP 16; TEMP 36.9; O2SAT 99
[2023-10-23] MEDS: PANTOPRAZOLE 40 MG VIAL 20 MG IV (08:17)
--- NOTE | 2023-10-23 11:06 | P.PN_ITS ---
Subjective Subjective Date Patient Seen: 10/23/23 Time Patient Seen: 11:06 Exam Vital Signs (past 8 hours): - 10/23/23 08:00 Temperature 98.4 F Pulse Rate 68 Respiratory Rate 16 Blood Pressure 114/67 Pulse Oximetry 99 Oxygen Flow Rate 0 Oxygen Delivery Method Nasal Cannula Oxygen Flow Rate 0 Narrative Exam Narrative: Patient looks well, very interactive. No complaints of pain. Had a bowel movement and passing gas. Abdomen is soft and benign. Objective Labs 10/23/23 05:05 10/23/23 05:05 Labs: Laboratory Results - last 24 hr 10/22/23 10/22/23 10/23/23 10:55 19:30 05:05 WBC 7.3 RBC 4.41 L Hgb 14.1 Hct 41.4 MCV 93.7 MCH 31.9 MCHC 34.0 RDW 13.3 Plt Count 211 Neut % (Auto) 75.2 H Lymph % (Auto) 11.8 L [place] % (Auto) 12.7 Eos % (Auto) 0.1 L Baso % (Auto) 0.2 Neut # (Auto) 5500 Lymph # (Auto) 900 L [place] # (Auto) 900 Eos # (Auto) 0 Baso # (Auto) 0 Sodium 141 Potassium 4.4 Chloride 108 H Carbon Dioxide 28 BUN 29 H Creatinine 0.95 Estimated GFR > 60 BUN/Creatinine Ratio 30.5 H Glucose 154 H Lactate 2.0 Calcium 8.1 L Total Bilirubin 0.8 AST 30 ALT 27 Alkaline Phosphatase 80 Total Protein 6.5 Albumin 3.9 Globulin 2.6 Albumin/Globulin Ratio 1.5 Urine Color Yellow Urine Appearance Clear Urine pH 5.5 Ur Specific [place] 1.020 Urine Protein 1+ H Urine Glucose (UA) Negative Urine Ketones Negative Urine Occult Blood Negative Urine Nitrate Negative Urine Bilirubin 1+ H Ur Bilirubin Confirm Negative Urine Urobilinogen 0.2 Ur Leukocyte Esterase Negative Urine RBC 0-1/hpf Urine WBC None seen Ur Squamous Epith Cells None seen Urine Bacteria None seen Ur Culture Indicated? Cult not indicated Vol Urine Centrifuged 10ml (spun) [facility] Medical History Prostate cancer Lower urinary tract symptoms (LUTS) Family history of prostate cancer Elevated PSA Anemia Enlarged prostate Diverticula of colon Depression SCC (squamous cell carcinoma) (~10/2018) Osteoarthritis HTN (hypertension) Cervical spinal stenosis HLD (hyperlipidemia) Small bowel obstruction (~03/2016) Surgical History Hx of tonsillectomy H/O vasectomy Hx of abdominal surgery Family History Father Hyperlipidemia Hypertension Mother Hyperlipidemia Hypertension UTI symptoms Grandmother FH: CVA (cerebrovascular accident) Social History marital status: number of children: 3 household members: spouse and family occupational status: previously employed Smoking Status: Former smoker alcohol intake: current substance use type: does not use Assessment & Plan Assessment & Plan narrative: Resolution of small-bowel obstruction Plan: Advance diet as tolerated with potential discharge today
[2023-10-23] MEDS: SODIUM CHLORIDE 0.9% 1,000 ML 125 ML IV (12:26)
[2023-10-23 12:49] VITALS: BP 116/76; PULSE 62; RESP 16; TEMP 36.7; O2SAT 99
--- NOTE | 2023-10-23 13:10 | PM.DS.1 ---
History of Present Illness History of Present Illness Date Patient Seen: 10/23/23 Time Patient Seen: 13:10 Chief complaint: abdominal pain, constipation, vomiting Narrative: CC: recurrent bowel obstruction good blowout with soapy enema last night - feeling better today eating breakfast. ready to go home. Discharge Providers Provider Date of admission: 10/22/23 10:40 Discharge Date: 10/23/23 Primary care physician: Isma Townsend MD Consults: 10/22/23 10:20 Consult to Physician Stat Comment: Consulting Provider: Flori Bruno Reason for consultation: sbo Has provider been notified: Yes Discharge provider: Miguel Angel Gaytan MD Summary Hospital Course Discharge Diagnosis: #bowel obstruction, acute #likely adhesions 2/2 surgical history #HTN essential #hx of prostate cancer s/p TURP #hx of muscle cramps #hyperlipidemia mixed Hospital Course: Pt presented in pain with complaint of distended painful abdomen and inability to defecate for multiple days. Extensive prior abdominal surgical history and multiple previous presentations for obstruction. He is a very tough NGT placement and has required radiology to place in the past. His gut was drum-tight and he was in pain requiring dialudid to manage. No response to fleet enemas, but we did get good output with soapy enema and mag cit. By DoD was feeling more normal returned bowel noises compressible abdomen and eating regular diet. to f/up with PCP as outpt Status at Discharge Cognitive/behavioral status at discharge: at baseline, oriented Overall status at discharge: patient is progressing back to baseline Exam Vital Signs (past 8 hours): - 10/23/23 08:00 10/23/23 12:49 Temperature 98.4 F 98.1 F Pulse Rate 68 62 Respiratory Rate 16 16 Blood Pressure 114/67 116/76 Pulse Oximetry 99 99 Oxygen Flow Rate 0 Oxygen Delivery Method Nasal Cannula Oxygen Flow Rate 0 Narrative Exam Narrative: sitting in bed eating lunch Resp Other: clear to auscultation bilaterally Cardio Other: regular rate well perfused GI Other: distended but compressible abdomen with extensive midline scarring from laparotomy incisions. Active bowel sounds in all 4 quadrants. Extrem Other: moving all no pedal edema Objective Labs 10/23/23 05:05 10/23/23 05:05 Labs: Laboratory Results - last 24 hr 10/22/23 10/23/23 19:30 05:05 WBC 7.3 RBC 4.41 L Hgb 14.1 Hct 41.4 MCV 93.7 MCH 31.9 MCHC 34.0 RDW 13.3 Plt Count 211 Neut % (Auto) 75.2 H Lymph % (Auto) 11.8 L [place] % (Auto) 12.7 Eos % (Auto) 0.1 L Baso % (Auto) 0.2 Neut # (Auto) 5500 Lymph # (Auto) 900 L [place] # (Auto) 900 Eos # (Auto) 0 Baso # (Auto) 0 Sodium 141 Potassium 4.4 Chloride 108 H Carbon Dioxide 28 BUN 29 H Creatinine 0.95 Estimated GFR > 60 BUN/Creatinine Ratio 30.5 H Glucose 154 H Calcium 8.1 L Total Bilirubin 0.8 AST 30 ALT 27 Alkaline Phosphatase 80 Total Protein 6.5 Albumin 3.9 Globulin 2.6 Albumin/Globulin Ratio 1.5 Urine Color Yellow Urine Appearance Clear Urine pH 5.5 Ur Specific [place] 1.020 Urine Protein 1+ H Urine Glucose (UA) Negative Urine Ketones Negative Urine Occult Blood Negative Urine Nitrate Negative Urine Bilirubin 1+ H Ur Bilirubin Confirm Negative Urine Urobilinogen 0.2 Ur Leukocyte Esterase Negative Urine RBC 0-1/hpf Urine WBC None seen Ur Squamous Epith Cells None seen Urine Bacteria None seen Ur Culture Indicated? Cult not indicated Vol Urine Centrifuged 10ml (spun) [facility] Medical History Prostate cancer Lower urinary tract symptoms (LUTS) Family history of prostate cancer Elevated PSA Anemia Enlarged prostate Diverticula of colon Depression SCC (squamous cell carcinoma) (~10/2018) Osteoarthritis HTN (hypertension) Cervical spinal stenosis HLD (hyperlipidemia) Small bowel obstruction (~03/2016) Surgical History Hx of tonsillectomy H/O vasectomy Hx of abdominal surgery Family History Father Hyperlipidemia Hypertension Mother Hyperlipidemia Hypertension UTI symptoms Grandmother FH: CVA (cerebrovascular accident) Social History marital status: number of children: 3 household members: spouse and family occupational status: previously employed Smoking Status: Former smoker alcohol intake: current substance use type: does not use Discharge Assessment & Plan Assessment and Plan Assessment: #bowel obstruction, acute #likely adhesions 2/2 surgical history Excellent output with soapy enema and some mag cit. recommend daily peg stool softeners #HTN essential stable resume home regimen #hx of prostate cancer s/p TURP urination doing ok #hx of muscle cramps prn cyclobenzaprine when able to take po - stay hydrated for now #hyperlipidemia mixed resume home regimen dispo: home to f/up with PCP as outpt Code: full PCP: Sera Townsend DVT ppx: lovenox MDM: Donna [phone] time spent: 45min Discharge Plan Discharge Plan Patient Disposition: Home Discharge orders & Medications Prescriptions: Continued gabapentin 100 MG capsule 600 mg PO TID Qty: 0 methocarbamol 500 mg Tablet 1,000 mg PO QID PRN (Reason: Spasms) Qty: 0 hydrocodone-acetaminophen 5-325 mg tablet 1 - 2 tab PO Q6H PRN (Reason: Pain (Scale Score 4-6)) omeprazole 20 mg capsule,delayed release(DR/EC) 20 mg PO DAILY Qty: 30 4RF amlodipine 5 mg Tablet 5 mg PO BEDTIME duloxetine 20 mg Capsule,Delayed Release(Dr/Ec) 30 mg PO BEDTIME nabumetone 500 mg tablet 500 mg PO BID Metamucil 3.4 gram/5.4 gram powder 1 tbsp PO DAILY Rx Instructions: mix into at least 8 oz of water or juice before administering ascorbic acid (vitamin C) 1,000 mg tablet extended release 1,000 mg PO Q12H pravastatin 40 mg tablet 40 mg PO BEDTIME tamsulosin 0.4 mg capsule 0.4 mg PO BEDTIME Qty: 90 3RF Follow up/Referrals: Isam Townsend MD [Primary Care Provider] - Visit Report/Discharge Packet Stand Alone Forms: Patient Portal/API, Stroke Signs & Symptoms Discharge Data Primary Care Provider: Isma Townsend
--- NOTE | 2023-10-23 14:19 | CM.DANOTE ---
Brief DCP Assessment Note Pt is a 68yo M here following SBO. Pt under the care of the provider group and general surgery. PCP [employer] Payer Medicare and Adan PATEL reviewed EMR. Per RN report, pt got NG tuber overnight but then pulled it out. Pt had large BM. Per provider, pt cleared to dc home. P: home with spouse today. No anticipated needs from chart review/provider/RN report. CM team will continue to follow as needed. AMANDA Alfred Discharge Planning/Care Management CM Discharge Assessment Start: 10/23/23 14:17 Freq: Status: Active Protocol: Document 10/23/23 14:17 (Rec: 10/23/23 14:19 [id number]) Discharge Planning Assessment Assigned Sales And Marketing Administrator AMANDA Alvarado DPOA/Assigned Designee Name Spousegillian Contact Information [phone] Advance Directives? Yes: Advanced Directive Advance Directives on File Yes History Provided By Patient,Medical Record Prior Living Arrangements House Household Members spouse,family Independent with ADL's Yes Is patient alert and oriented? Yes Barriers to Discharge No Discharge Plan Home Transportation Arrangement Spouse Referrals Initiated None needed Whiteboard Updated in Patient Room with No name and ext. # of Sales And Marketing Administrator Review Status In Process Please Provide Date Initial DC 10/23/23 Assessment Was Performed Next Review Type Continued Stay Review
== END 2023-10-23 14:40 | disposition home or self-care (01) ==
LOC: ED 10:23 → AC 10-23 13:07
PROVIDERS: Admitting Provider Family Medicine; Emergency Provider Emergency Medicine; Family Provider Family Medicine; PCP Family Medicine; Referring Provider Emergency Medicine; Visit Provider Family Medicine
DX: K56.609 Unspecified intestinal obstruction, unspecified as to partial versus complete obstruction (principal)
CPT/HCPCS: 36415; 71045; 74177; 80053; 81001; 83605; 83690; 85025; 93005; 96365; 96372; 96375; 96376; 99284; G0378; C9113; J0136; J1170; J2060; J2405; Q9967

== ENCOUNTER → 2023-12-05 08:58 | Outpatient (CLI) | payer MEDICARE, OTHER, SELFPAY ==
[2023-10-22 11:46] VITALS: BMI 29.5
--- NOTE | 2023-12-05 | DI.CT.S_ITS ---
PROCEDURE: CT ABDOMEN PELVIS W CON INDICATIONS: CHRONIC ABDOMINAL PAIN TECHNIQUE: After the administration of intravenous contrast, axial sections acquired from the lung bases to the pubic symphysis. Coronal and sagittal reformats were performed. For radiation dose reduction, the following was used: automated exposure control, adjustment of mA and/or kV according to patient size. COMPARISON: [facility], CT, CT ABDOMEN PELVIS W CON, 10/22/2023, 9:23. FINDINGS: Image quality: Diagnostic. Lower Chest: Clear lung bases. Moderate-sized hiatal hernia. ABDOMEN: Liver: No solid mass. Gallbladder: No wall thickening or calcified stones. Biliary ducts: No biliary dilation. Pancreas: No ductal dilation. Spleen: Size is within normal limits. Adrenal Glands: No adrenal nodules. Kidneys and Ureters: Symmetric enhancement. No nephrolithiasis or hydronephrosis. No hydroureter. Small bilateral exophytic cysts. Stomach and Bowel: Stomach and small bowel loops are normal caliber. Normal appendix. Solid stool throughout the colon. No pericolonic inflammation or wall thickening. Peritoneum: No abnormal intraperitoneal fluid. No free air. Ventral Wall: Rectus muscle atrophy versus diastasis and intact anterior abdominal wall, probably with mesh repair given undulating contour. There are no associated fluid collections or inflammation. No visible anterior abdominal wall fascial defects. Abdominal Nodes: No retroperitoneal or mesenteric adenopathy by size criteria. Vessels: Aorta and inferior vena cava are normal in size. PELVIS: Pelvic Organs: Prostatectomy. Bladder: Normal. Pelvic Nodes: No enlarged lymph nodes. Miscellaneous: No inguinal hernias are seen. Bones: Exaggerated lumbar lordosis due to L5 pars defects and grade to L5-S1 anterolisthesis. IMPRESSION: Moderate size hiatal hernia, decreased size compared to most recent prior exam. No ventral hernia. There is evidence of surgical repair. No evidence of bowel obstruction or suspicious bowel wall thickening. Dictated by: Joan Kauffman M.D. on 12/05/2023 at 16:56 Approved by: Joan Kauffman M.D. on 12/05/2023 at 17:02
== END ==
PROVIDERS: Family Provider Family Medicine; PCP Family Medicine; Referring Provider Family Medicine; Visit Provider Family Medicine
DX: K44.9 Diaphragmatic hernia without obstruction or gangrene (principal); N20.0 Calculus of kidney; R10.9 Unspecified abdominal pain
CPT/HCPCS: 74177; Q9967

== ENCOUNTER → 2025-04-18 17:08 | Outpatient (CLI) | payer MEDICARE, OTHER, SELFPAY ==
[2023-10-22 11:46] VITALS: BMI 29.5
--- NOTE | 2025-04-18 17:11 | DI.MRI.S_ITS ---
PROCEDURE: MR LUMBAR SPINE WO CON INDICATIONS: chronic low back pain TECHNIQUE: Noncontrast sagittal T1 spin echo and T2 fast echo, sagittal STIR, and T2 fast spin echo through the lumbar spine. In cases with scoliosis, additional coronal T2 fast spin echo may be performed. COMPARISON: [facility], CT, CT ABDOMEN PELVIS W CON, 12/05/2023, 10:23. [facility], MR, MR LUMBAR SPINE WO CON, 07/09/2020, 8:27. FINDINGS: Image quality: Excellent. Alignment and Curvature: Minimal retrolisthesis can be seen at the L1-L2 level. Grade 1/2 anterolisthesis is seen at L5-S1, with associated bilateral L5 pars defects Bone Marrow: Marrow is of normal overall signal. No acute vertebral body compression fractures. Spinal Cord: Conus medullaris terminates at the T12-L1 level. Visualized cord demonstrates normal signal and size. Paraspinous Soft Tissues: No paravertebral masses. T12-L1: Moderate loss of disc height is seen. Loss of disc signal is seen. Mild generalized disc bulge is seen. There is a superimposed central disc protrusion. There is mild left-sided and moderate right-sided neural narrowing. Mild central canal narrowing is seen. When comparison is made with the prior images, these findings are similar. L1-L2: Moderate loss of disc height is seen. Loss of disc signal is seen. Moderate generalized disc bulge is seen. There is a superimposed central disc osteophyte protrusion. Moderate facet joint hypertrophy is seen. Moderate bilateral neural foraminal narrowing is seen. Mild central canal narrowing is seen. The previously seen disc extrusions at this level are no longer seen. L2-L3: Moderate loss of disc height is seen. Loss of disc signal is seen. Moderate generalized disc bulge is seen. There is a superimposed central disc osteophyte protrusion. Moderate facet joint hypertrophy is seen. Associated hypertrophy of the ligamentum flavum can be seen. Moderate bilateral neural narrowing can be seen, left worse than right. Moderate central canal narrowing is seen. The degree of left- sided neural foraminal narrowing is slightly worse than in 2020. L3-L4: Moderate loss of disc height is seen. Loss of disc signal is seen. Moderate generalized disc bulge is seen. There is a superimposed central disc protrusion. Moderate facet joint hypertrophy is seen. Moderate bilateral neural foraminal narrowing is seen. Mild central canal narrowing is seen. No significant change from the prior. L4-L5: Moderate loss of disc height is seen. Loss of disc signal is seen. Moderate generalized disc bulge is seen. At least moderate facet hypertrophy is seen. There is moderate to severe bilateral neural foraminal narrowing seen, with an associated degree of compression seen upon the exiting nerve roots. No significant central canal narrowing is seen. When comparison is made with the prior images, these findings are similar. L5-S1: Moderate to severe loss of disc height is seen. Reactive marrow endplate changes are seen which are hypointense on T1-weighted imaging and hyperintense on T2 weighted imaging, which is most consistent with edema (Modic type I changes). Moderate generalized disc bulge is seen. Moderate facet joint hypertrophy is seen. There is moderate to severe bilateral neural foraminal narrowing seen, with an associated degree of compression seen upon the exiting nerve roots. Mild central canal narrowing is seen. When comparison is made with the prior images, these findings are similar. IMPRESSION: Multiple levels of lumbar spine degenerative change can be seen, which are overall worst at the L5-S1 level, where there is grade 1/2 anterolisthesis. Bilateral moderate to severe neural foraminal narrowing can be seen at this level, with associated compression upon the exiting nerve roots. The degree of endplate edema at this level is worse than in 202. There were previously seen disc extrusions at the L1-L2 level, which are now no longer seen. Mild interval progression of degenerative change seen at the L2-L3 level. Dictated by: Tre Taylor M.D. on 04/20/2025 at 17:14 Approved by: Tre Taylor M.D. on 04/20/2025 at 17:19
== END ==
LOC: MRI 17:10
PROVIDERS: Family Provider Family Medicine; PCP Family Medicine; Referring Provider Chiropractor Independent Medical Examiner; Visit Provider Chiropractor Independent Medical Examiner
DX: M43.16 Spondylolisthesis, lumbar region (principal); M43.17 Spondylolisthesis, lumbosacral region; M51.362 Other intervertebral disc degeneration, lumbar region with discogenic back pain and lower extremity pain; M48.061 Spinal stenosis, lumbar region without neurogenic claudication; M48.07 Spinal stenosis, lumbosacral region; M47.816 Spondylosis without myelopathy or radiculopathy, lumbar region; M47.817 Spondylosis without myelopathy or radiculopathy, lumbosacral region
CPT/HCPCS: 72148